=== PATIENT | male | born 1975 | race Caucasian/White ===

== ENCOUNTER 2021-08-05 10:06 | Outpatient (REF) | payer OTHER, SELFPAY ==
[2021-08-05 13:38] LABS: MANUAL DIFF FLAG NO
[2021-08-05 13:41] LABS: Basophils Percent Auto 0.4 % (0-2); Eosinophils Absolute Auto 0.2 X10*3/uL (0.0-0.4); Eosinophils Percent Auto 1.6 % (0-4); Hematocrit 42.7 % (42.0-52.0); Hemoglobin 13.7 g/dl (14.0-18.0); Imm Gran Abs Auto 0.07 X10*3/uL (0.00-0.03); Imm Gran Pct Auto 0.6 % (0.0-0.4); Lymphocytes Absolute Auto 1.9 X10*3/uL (1.2-4.9); Lymphocytes Percent Auto 16.9 % (20-40); Mean Corpuscular HGB Conc 32.1 g/dl (31.0-36.0); Mean Corpuscular Hemoglobin 28.7 pg (27.0-33.0); Mean Corpuscular Volume 89.5 fL (80.0-98.0); Mean Platelet Volume 11.3 fL (9.4-12.4); Monocytes Absolute Auto 0.9 X10*3/uL (0.1-1.2); Monocytes Percent Auto 7.7 % (2-11); Neutrophils Absolute Auto 8.1 x10*3/uL (2.0-8.3); Neutrophils Percent Auto 72.8 % (45-73); Platelet Count 224 X10*3/uL (160-400); Red Blood Count 4.77 X10*6/uL (4.60-5.80); Red Cell Distribution Width 13.5 % (11.0-16.0); White Blood Count 11.1 X10*3/uL (4.8-10.8)
[2021-08-05 13:50] LABS: Estimated Average Glucose 203 mg/dL; Hemoglobin A1c % 8.7 %
[2021-08-05 13:53] LABS: Alanine Aminotransferase 15 U/L (0-40); Albumin Level 3.8 g/dL (3.5-5.0); Alkaline Phosphatase 111 U/L (39-117); Anion Gap 11 (12-20); Aspartate Amino Transferase 15 U/L (5-37); Bilirubin Total 0.4 mg/dL (0.0-1.0); Blood Urea Nitrogen 14 mg/dL (9-16); Calcium 8.8 mg/dL (8.4-10.2); Carbon Dioxide 28 mmol/L (22-29); Chloride 104 mmol/L (96-108); Cholesterol 204 mg/dL; Estimated Glomerular Filt Rate > 60; Glucose Fasting 115 mg/dL (60-99); HDL Cholesterol 40 mg/dL; LDL Cholesterol Calculated 143 mg/dl; Potassium 4.4 mmol/L (3.3-5.1); Sodium 139 mmol/L (135-145); Total Protein 6.6 g/dL (6.5-8.0); Triglycerides 106 mg/dL
[2021-08-05 13:55] LABS: Appearance Urine CLEAR; Color Urine YELLOW; Glucose Urine UA NEG (NEG); Leukocyte Esterase Urine NEG (NEG); Nitrite Urine NEG (NEG); PH 6.5 (5.0-8.0); Urine Blood NEG (NEG); Urine Ketones NEG (NEG); Urine Protein NEG (NEG-TRACE)
[2021-08-05 14:16] LABS: Vitamin D 25-OH Total 7.8 ng/mL (>30)
[2021-08-05 14:26] LABS: Microalbum/Creatinine Ratio Ur 4.7 ug/mg cr
== END 2021-08-05 10:07 | disposition home or self-care (01) ==
LOC: HO.10HDL 10:06
PROVIDERS: Visit Provider Internal Medicine
DX: I10 Essential (primary) hypertension (principal); E11.9 Type 2 diabetes mellitus without complications; E55.9 Vitamin D deficiency, unspecified; E78.00 Pure hypercholesterolemia, unspecified
CPT/HCPCS: 36415; 80053; 80061; 81003; 82043; 82306; 83036; 84443; 85025

== ENCOUNTER → 2021-11-27 14:28 | Outpatient (BNVA) | payer OTHER, SELFPAY | PROVIDERS: PCP Internal Medicine; Visit Provider Internal Medicine Endocrinology, Diabetes & Metabolism | DX: E10.65 Type 1 diabetes mellitus with hyperglycemia (principal) | CPT/HCPCS: 82947 ==

== ENCOUNTER 2021-12-10 12:11 | Outpatient (REF) | payer OTHER, SELFPAY ==
[2021-12-10 13:41] LABS: MANUAL DIFF FLAG NO
[2021-12-10 13:52] LABS: Appearance Urine Clear; Color Urine Yellow; Glucose Urine UA >=1000 mg/dL (Negative); Leukocyte Esterase Urine Negative (Negative); Nitrite Urine Negative (Negative); PH 5.5 (5.0-9.0); Specific Gravity - Urine >= 1.030 (1.005-1.025); UMIC TRIGGER UACC YES; Urine Blood Negative (Negative); Urine Ketones Trace mg/dL (Negative); Urine Protein Negative (Neg-Trace)
[2021-12-10 13:53] LABS: Basophils Absolute Auto 0.1 X10*3/uL (0.0-0.2); Basophils Percent Auto 0.4 % (0-2); Eosinophils Absolute Auto 0.1 X10*3/uL (0.0-0.4); Hematocrit 42.7 % (42.0-52.0); Hemoglobin 13.7 g/dl (14.0-18.0); Imm Gran Abs Auto 0.07 X10*3/uL (0.00-0.03); Imm Gran Pct Auto 0.5 % (0.0-0.4); Lymphocytes Absolute Auto 1.9 X10*3/uL (1.2-4.9); Lymphocytes Percent Auto 13.8 % (20-40); Mean Corpuscular HGB Conc 32.1 g/dl (31.0-36.0); Mean Corpuscular Hemoglobin 28.4 pg (27.0-33.0); Mean Corpuscular Volume 88.4 fL (80.0-98.0); Mean Platelet Volume 11.6 fL (9.4-12.4); Monocytes Absolute Auto 0.8 X10*3/uL (0.1-1.2); Monocytes Percent Auto 6.1 % (2-11); Neutrophils Absolute Auto 10.6 x10*3/uL (2.0-8.3); Neutrophils Percent Auto 78.2 % (45-73); Platelet Count 213 X10*3/uL (160-400); Red Blood Count 4.83 X10*6/uL (4.60-5.80); Red Cell Distribution Width 13.6 % (11.0-16.0); White Blood Count 13.5 X10*3/uL (4.8-10.8)
[2021-12-10 13:54] LABS: Estimated Average Glucose 189 mg/dL; Hemoglobin A1c % 8.2 %
[2021-12-10 14:04] LABS: Alanine Aminotransferase 16 U/L (0-40); Albumin Level 3.9 g/dL (3.5-5.0); Alkaline Phosphatase 126 U/L (39-117); Anion Gap 16 (12-20); Aspartate Amino Transferase 13 U/L (5-37); Bilirubin Total 0.3 mg/dL (0.0-1.0); Blood Urea Nitrogen 18 mg/dL (9-16); Calcium 9.4 mg/dL (8.4-10.2); Carbon Dioxide 23 mmol/L (22-29); Chloride 105 mmol/L (96-108); Cholesterol 193 mg/dL; Estimated Glomerular Filt Rate > 60; Glucose Fasting 160 mg/dL (60-99); HDL Cholesterol 44 mg/dL; LDL Cholesterol Calculated 132 mg/dl; Potassium 4.7 mmol/L (3.3-5.1); Sodium 139 mmol/L (135-145); Total Protein 6.8 g/dL (6.5-8.0); Triglycerides 85 mg/dL
[2021-12-10 14:09] LABS: Creatinine Urine 169.91 mg/dL; Microalbum/Creatinine Ratio Ur 4.7 ug/mg cr
[2021-12-10 14:24] LABS: TSH reflex Free T4 1.95 uIU/mL (0.32-4.0)
[2021-12-10 14:37] LABS: Bacteria Urine None Seen (None Seen); Hyaline Casts Urine 0-2 /LPF (0-2); RBC Urine 0-2 /HPF (0-2); Squamous Epithelial Cell Urine 0-2 /HPF (0-2); WBC Urine 0-5 /HPF (0-5)
[2021-12-16 21:02] LABS: Glutamic acid decarboxylase Ab <5 IU/mL (<5)
== END 2021-12-10 12:12 | disposition home or self-care (01) ==
LOC: HO.10HDL 12:11
PROVIDERS: Absent Provider Internal Medicine Endocrinology, Diabetes & Metabolism; Visit Provider Internal Medicine
DX: E10.65 Type 1 diabetes mellitus with hyperglycemia (principal); I10 Essential (primary) hypertension; E55.9 Vitamin D deficiency, unspecified
CPT/HCPCS: 36415; 80053; 80061; 81001; 82043; 82306; 83036; 84443; 85025; 86341

== ENCOUNTER → 2022-03-03 08:37 | Outpatient (BNVA) | payer OTHER, SELFPAY | PROVIDERS: PCP Internal Medicine; Visit Provider Internal Medicine Endocrinology, Diabetes & Metabolism | DX: E10.65 Type 1 diabetes mellitus with hyperglycemia (principal); E78.00 Pure hypercholesterolemia, unspecified | CPT/HCPCS: 82947 ==

== ENCOUNTER → 2022-03-16 12:35 | Outpatient (BNVA) | payer OTHER, SELFPAY | PROVIDERS: PCP Internal Medicine; Visit Provider Dietitian, Registered | DX: E10.9 Type 1 diabetes mellitus without complications (principal) | CPT/HCPCS: 97802 ==

== ENCOUNTER → 2022-05-05 09:33 | Outpatient (BNVA) | payer OTHER, SELFPAY | PROVIDERS: PCP Internal Medicine; Visit Provider Dietitian, Registered | DX: E11.9 Type 2 diabetes mellitus without complications (principal); Z71.3 Dietary counseling and surveillance | CPT/HCPCS: 97803 ==

== ENCOUNTER 2022-05-25 10:50 | Outpatient (REF) | payer OTHER, SELFPAY ==
[2022-05-25 13:19] LABS: MANUAL DIFF FLAG NO
[2022-05-25 13:23] LABS: Basophils Absolute Auto 0.1 X10*3/uL (0.0-0.2); Basophils Percent Auto 0.5 % (0-2); Eosinophils Absolute Auto 0.2 X10*3/uL (0.0-0.4); Eosinophils Percent Auto 1.6 % (0-4); Hematocrit 44.4 % (42.0-52.0); Hemoglobin 14.3 g/dl (14.0-18.0); Imm Gran Abs Auto 0.05 X10*3/uL (0.00-0.03); Imm Gran Pct Auto 0.5 % (0.0-0.4); Lymphocytes Absolute Auto 1.6 X10*3/uL (1.2-4.9); Lymphocytes Percent Auto 14.3 % (20-40); Mean Corpuscular HGB Conc 32.2 g/dl (31.0-36.0); Mean Corpuscular Hemoglobin 28.1 pg (27.0-33.0); Mean Corpuscular Volume 87.2 fL (80.0-98.0); Mean Platelet Volume 11.1 fL (9.4-12.4); Monocytes Absolute Auto 0.7 X10*3/uL (0.1-1.2); Monocytes Percent Auto 6.5 % (2-11); Neutrophils Absolute Auto 8.4 x10*3/uL (2.0-8.3); Neutrophils Percent Auto 76.6 % (45-73); Platelet Count 251 X10*3/uL (160-400); Red Blood Count 5.09 X10*6/uL (4.60-5.80); Red Cell Distribution Width 13.6 % (11.0-16.0); White Blood Count 10.9 X10*3/uL (4.8-10.8)
[2022-05-25 13:30] LABS: Appearance Urine Clear; Color Urine Yellow; Glucose Urine UA 500 mg/dL (Negative); Leukocyte Esterase Urine Negative (Negative); Nitrite Urine Negative (Negative); PH 5.5 (5.0-9.0); Specific Gravity - Urine >= 1.030 (1.005-1.025); Urine Blood Negative (Negative); Urine Ketones Negative (Negative); Urine Protein Negative (Neg-Trace)
[2022-05-25 13:41] LABS: Alanine Aminotransferase 15 U/L (0-40); Albumin Level 3.8 g/dL (3.5-5.0); Alkaline Phosphatase 123 U/L (39-117); Anion Gap 14 (12-20); Aspartate Amino Transferase 11 U/L (5-37); Bilirubin Total 0.5 mg/dL (0.0-1.0); Blood Urea Nitrogen 18 mg/dL (9-16); Calcium 9.1 mg/dL (8.4-10.2); Carbon Dioxide 23 mmol/L (22-29); Chloride 104 mmol/L (96-108); Cholesterol 168 mg/dL; Estimated Glomerular Filt Rate > 60; Glucose Fasting 285 mg/dL (60-99); HDL Cholesterol 37 mg/dL; LDL Cholesterol Calculated 114 mg/dl; Potassium 4.7 mmol/L (3.3-5.1); Sodium 136 mmol/L (135-145); Total Protein 6.5 g/dL (6.5-8.0); Triglycerides 88 mg/dL
[2022-05-25 13:46] LABS: Estimated Average Glucose 197 mg/dL; Hemoglobin A1c % 8.5 %
[2022-05-25 14:06] LABS: TSH reflex Free T4 1.79 uIU/mL (0.32-4.0); Vitamin D 25-OH Total 13.6 ng/mL (>30)
== END 2022-05-25 10:51 | disposition home or self-care (01) ==
LOC: HO.10HDL 10:50
PROVIDERS: Internal Medicine Endocrinology, Diabetes & Metabolism; Visit Provider Internal Medicine
DX: E78.00 Pure hypercholesterolemia, unspecified (principal); E11.9 Type 2 diabetes mellitus without complications; I10 Essential (primary) hypertension; E55.9 Vitamin D deficiency, unspecified; R30.0 Dysuria
CPT/HCPCS: 36415; 80053; 80061; 81003; 82306; 83036; 84443; 85025

== ENCOUNTER 2022-05-26 14:16 | Outpatient (RCR) | payer OTHER, SELFPAY | END 2022-08-20 09:37 | disposition home or self-care (01) | LOC: HO.WCC 14:16 | PROVIDERS: PCP Internal Medicine; Visit Provider Surgery | DX: E11.621 Type 2 diabetes mellitus with foot ulcer (principal); L97.522 Non-pressure chronic ulcer of other part of left foot with fat layer exposed; E11.69 Type 2 diabetes mellitus with other specified complication; M86.072 Acute hematogenous osteomyelitis, left ankle and foot; Z79.82 Long term (current) use of aspirin; Z79.899 Other long term (current) drug therapy | CPT/HCPCS: 11042; 87070; 87073; 87076; 87077; 87185; 87186; 87205; 97597 ==

== ENCOUNTER → 2022-06-02 08:37 | Outpatient (BNVA) | payer OTHER, SELFPAY | PROVIDERS: PCP Internal Medicine; Visit Provider Internal Medicine Endocrinology, Diabetes & Metabolism | DX: E10.65 Type 1 diabetes mellitus with hyperglycemia (principal); E78.00 Pure hypercholesterolemia, unspecified; Z71.3 Dietary counseling and surveillance | CPT/HCPCS: 82947 ==

== ENCOUNTER 2022-06-02 09:58 | Outpatient (REF) | payer OTHER, SELFPAY ==
[2022-06-02 11:04] LABS: Glucose Random 194 mg/dL (60-115)
[2022-06-04 06:17] LABS: C Peptide 0.13 ng/mL (0.80-3.85)
== END 2022-06-02 09:59 | disposition home or self-care (01) ==
LOC: HO.10HDL 09:58
PROVIDERS: Visit Provider Internal Medicine Endocrinology, Diabetes & Metabolism
DX: E11.628 Type 2 diabetes mellitus with other skin complications (principal); L08.9 Local infection of the skin and subcutaneous tissue, unspecified
CPT/HCPCS: 36415; 82947; 84681

== ENCOUNTER → 2022-06-10 10:58 | Outpatient (BNVA) | payer OTHER, SELFPAY | PROVIDERS: PCP Internal Medicine; Visit Provider Registered Nurse Diabetes Educator ==

== ENCOUNTER → 2022-07-22 09:29 | Outpatient (BNVA) | payer OTHER, SELFPAY | PROVIDERS: PCP Internal Medicine; Visit Provider Registered Nurse Diabetes Educator ==

== ENCOUNTER → 2022-08-05 13:05 | Outpatient (BNVA) | payer OTHER, SELFPAY | PROVIDERS: PCP Internal Medicine; Visit Provider Dietitian, Registered | DX: E10.65 Type 1 diabetes mellitus with hyperglycemia (principal); E66.9 Obesity, unspecified; Z68.43 Body mass index [BMI] 50.0-59.9, adult; Z71.3 Dietary counseling and surveillance | CPT/HCPCS: 97803 ==

== ENCOUNTER → 2022-08-06 08:06 | Outpatient (BNVA) | payer OTHER, SELFPAY | PROVIDERS: PCP Internal Medicine; Visit Provider Internal Medicine Endocrinology, Diabetes & Metabolism | DX: E10.65 Type 1 diabetes mellitus with hyperglycemia (principal); E78.00 Pure hypercholesterolemia, unspecified; Z79.899 Other long term (current) drug therapy | CPT/HCPCS: 82947 ==

== ENCOUNTER → 2022-09-16 10:10 | Outpatient (BNVA) | payer OTHER, SELFPAY | PROVIDERS: PCP Internal Medicine; Visit Provider Registered Nurse Diabetes Educator ==

== ENCOUNTER → 2022-09-23 14:38 | Outpatient (BNVA) | payer OTHER, SELFPAY | PROVIDERS: PCP Internal Medicine; Visit Provider Registered Nurse Diabetes Educator ==

== ENCOUNTER 2022-11-04 13:04 | Outpatient (AMB) | payer OTHER, SELFPAY ==
--- NOTE | 2022-11-04 13:16 | MHC.OFFVIS ---
Intake Vital Signs 11/04/22 13:18 Height 6 ft 3 in Weight 444 lb 3.703 oz BMI 55.5 BP 138/86 Blood Pressure Location Lt brachial Position Sitting Pulse 86 Pulse Source Pulse Oximeter Intake Visit Reasons: f/u Type 2 DM, voicemail Intake Note: Patient present today to follow up on Diabetes Mellitus. Patient receives DME supplies through: Pharmacy Patient receives pump supplies through: [employer] Last Diabetic Eye exam:07/2022 Last Podiatry Visit: 09/2022 Random Glucose: 124 mg/dl HgA1C: 7.2% Behavioral Geneticist Required: No Accompanied by: Self / Same As Patient Allergies No Known Drug Allergies Allergy (Unknown, Verified 11/04/22 13:22) Unknown Medication List - Last Reconciled 11/04/22 by Sander Bojorquez MD aspirin 81 mg PO DAILY atorvastatin 40 mg PO DAILY blood sugar diagnostic (Contour Next Test Strips) As directed 5 times a day blood-glucose meter (Contour Next Meter) As directed blood-glucose meter,continuous (Dexcom G6 Forestry Technical Officer) As directed blood-glucose sensor (Dexcom G6 Sensor device) As directed change every 10 days blood-glucose transmitter (Dexcom G6 Transmitter device) As directed carvedilol 12.5 mg PO DAILY 90 days cholecalciferol (vitamin D3) 50 mcg PO DAILY 90 days escitalopram oxalate 10 mg PO DAILY 90 days insulin lispro (Humalog U-100 Insulin) 170 units (1.7 mL) subcut DAILY 90 days lansoprazole 30 mg PO DAILY lisinopril 20 mg PO DAILY 90 days lorazepam 0.5 mg PO DAILY 30 days tirzepatide (Mounjaro) 5 mg (0.5 mL) subcut QWEEK trazodone 50 mg PO BEDTIME 90 days HPI HPI Comments History of Present Illness Details 47 YO M with is seen in consultation for T2DM at the request of PCP. Initially diagnosed withDM in teenager when presented with hyperglycemia. Anti-GAD65 antibodies were negative possibly suggesting type 2 diabetes. However, C-peptide with glucose in the high 100s was low suggesting insulin deficiency. Currently on Mounjaro 5 mg qwkly Basal rate(s) (units/hour) : ?12 AM to 6:30 AM 4.6 units / hr ?6:30 AM to 3 PM 4.25 units / hr ?3 PM to 12 AM 4.15 units / hr Bolus setting Insulin Carbohydrate Ratio (s) 12 AM to 12 AM 1:5.1 Correction Factor / Sensitivity Factor AM to 12 AM? 1:15 Active Insulin Time:? 5 hours Target(s): Control IQ 12 AM to 12 AM?110? mg/dL Review of Dexcom shows average glucose to be 168 with standard deviation 48.2. 66% range with 33% hyperglycemia and 1% hypoglycemia. Total daily dose is 125.12 with 60% basal, 17% food bolus in 20% correction Reports low sugars occasionally . Treats lows with eats carbohydrates . Checks sugar after to ensure it is rising 30 min . No Family history of autoimmunity Has eyes checked yearly, last eye exam 08/2022 , no retinopathy. Has neuropathy, last foot exam August 2021, sees podiatry. Denies nephropathy, on CHRISTINE/ARB. Has HLD, on statin. Last LDL [] measured on []. Denies history of CAD. Saw podiatry last mo Had diabetes education long time ago . Diet/Carb counting: yes Denies prior episodes of DKA. Denies prior severe episodes of hypoglycemia requiring help or hospitalization. Labs: wound L middle toe infection followed by wound clinic and infectious DX [facility] Medical History Anxiety Benign essential hypertension Diabetes mellitus Diabetic foot infection Diabetic retinopathy GERD without esophagitis Insomnia Morbid obesity with BMI of 50.0-59.9, adult Pure hypercholesterolemia Uncontrolled type 1 diabetes mellitus Surgical History H/O knee surgery Family History Mother High blood pressure Father High blood pressure High cholesterol Social History Housing: Apartment Alcohol intake: current Alcohol intake frequency: holidays/special occasions only Patient Tobacco Use Status: Former Tobacco user e-Cigarette/Vaping Use: Never Used Second Hand Smoke Exposure: Yes service: No Current occupational status: employed 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 [place] Cognitive needs: No Hearing needs: No Vision needs: Yes Physical Exam Vital Signs: Last Vital Signs Pulse 86 11/04/22 13:18 BP 138/86 11/04/22 13:18 BMI result Body Mass Index 55.5 Results AMB Hemoglobin A1c AMB Hemoglobin A1c 7.2 % Last Edit by Lesa Wright on 11/04/22 13:34 Results Reviewed Results Reviewed: 11/04/22 13:24 Glucose, Whole Blood Routine Laboratory Last Values Glucose (Clinic) 124 mg/dL (60-115) H 11/04/22 13:24 Hgb A1c (Clinic) 7.2 % (4.0-6.0) H 11/04/22 13:32 Assessment & Plan Assessment & Plan (1) Uncontrolled type 1 diabetes mellitus: Plan: Is a 47-year-old white male with a history of Type 2 diabetes moist likely Type 2 DM being treated with a tandem T slim pump and Mounjaro with improved good glycemic control and no known microvascular or macrovascular complications. Plan is to increase the Mounjaro to 7.5 mg Qwkly. Patient will continue dietary and exercise modification. . (2) Uncontrolled type 1 diabetes mellitus with hyperglycemia: Code(s): E10.65 - Type 1 diabetes mellitus with hyperglycemia (3) Pure hypercholesterolemia: Code(s): E78.00 - Pure hypercholesterolemia, unspecified Plan: LDL cholesterol not at goal. on atorvastatin 40 mg. Will increase atorvastatin to 80 mg and recheck lipid profile in 2 months (4) Diabetes mellitus: Code(s): E11.9 - Type 2 diabetes mellitus without complications Qualifiers: Diabetes mellitus type: type 1 Diabetes mellitus complication status: with hyperglycemia Qualified Code(s): E10.65 - Type 1 diabetes mellitus with hyperglycemia Orders: Orders AMB Hemoglobin A1c Today E11.9 - Type 2 diabetes mellitus without complications Coding Level of Care Code Est Pt Level 4 (29106) Diagnoses Uncontrolled type 1 diabetes mellitus Uncontrolled type 1 diabetes mellitus with hyperglycemia E10.65 Pure hypercholesterolemia E78.00 Type 1 diabetes mellitus with hyperglycemia E10.65 Diabetes mellitus type: type 1 Diabetes mellitus complication status: with hyperglycemia
[2022-11-04 13:18] VITALS: BP 138/86; PULSE 86; BMI 55.5
[2022-11-04 13:28] LABS: Glucose, Whole Blood 124 mg/dL (60-115)
== END 2022-11-04 14:51 | disposition home or self-care (01) ==
PROVIDERS: PCP Internal Medicine; Visit Provider Internal Medicine Endocrinology, Diabetes & Metabolism
DX: E10.65 Type 1 diabetes mellitus with hyperglycemia (principal); E78.00 Pure hypercholesterolemia, unspecified; E11.9 Type 2 diabetes mellitus without complications
CPT/HCPCS: 99214

== ENCOUNTER → 2022-11-04 13:04 | Outpatient (BNVA) | payer OTHER, SELFPAY | PROVIDERS: PCP Internal Medicine; Visit Provider Internal Medicine Endocrinology, Diabetes & Metabolism | DX: E10.9 Type 1 diabetes mellitus without complications (principal); Z71.3 Dietary counseling and surveillance | CPT/HCPCS: 82947; 83036; 97803 ==

== ENCOUNTER 2022-11-08 15:57 | Outpatient (AMB) | payer OTHER, SELFPAY ==
[2022-11-08 15:58] VITALS: BP 142/88; PULSE 85; O2SAT 96; BMI 55.8
--- NOTE | 2022-11-08 15:58 | A.OFFPC_ITS ---
Vital Signs 11/08/22 15:58 Height 6 ft 3 in Weight 446 lb 6.977 oz BMI 55.8 BP 142/88 H Blood Pressure Location Lt brachial Position Sitting Pulse 85 Pulse Source Pulse Oximeter Pulse Oximetry (%) 96 Oxygen Delivery Method Room Air Intake Visit Reasons: [facility] Tar Worker Required: No Accompanied by: Self / Same As Patient Allergies No Known Drug Allergies Allergy (Unknown, Verified 11/08/22 16:16) Unknown Medication List - Last Reconciled 11/08/22 by Rito Srinivasan MD aspirin 81 mg PO DAILY atorvastatin 40 mg PO DAILY blood sugar diagnostic (Contour Next Test Strips) As directed 5 times a day blood-glucose meter (Contour Next Meter) As directed blood-glucose meter,continuous (Dexcom G6 Escalator Operator) As directed blood-glucose sensor ([email or web address] G6 Sensor device) As directed change every 10 days blood-glucose transmitter (Dexcom G6 Transmitter device) As directed carvedilol 12.5 mg PO DAILY 90 days cholecalciferol (vitamin D3) 50 mcg PO DAILY 90 days escitalopram oxalate 10 mg PO DAILY 90 days insulin lispro (Humalog U-100 Insulin) 170 units (1.7 mL) subcut DAILY 90 days lansoprazole 30 mg PO DAILY lisinopril 20 mg PO DAILY 90 days lorazepam 0.5 mg PO DAILY 30 days tirzepatide (Mounjaro) 5 mg (0.5 mL) subcut QWEEK trazodone 50 mg PO BEDTIME 90 days Tobacco use date assessed: 11/08/22 Dental Screening Dental Screen Date: 11/08/22 Did you have a dental visit in the last 12 months?: No Did you have a dental problem in the last 6 months where you did not have access to dental care?: No Was dental information given to patient?: Patient has dentist HPI 4mt f/u HPI Details Patient comes in today for his follow up visit States that he feels okay He denies any headaches or dizziness Denies any chest pains, no SOB No nausea/vomiting, no abdominal pain No change in bowel habits noted Was not able to get his follow up labs done prior to his appointment today but had his HgbA1c checked at the endocrinology office last week and it came out at 7.2% Needs his Lorazepam Rx refilled today [facility] Medical History Diabetic foot infection Uncontrolled type 1 diabetes mellitus GERD without esophagitis Diabetic retinopathy Morbid obesity with BMI of 50.0-59.9, adult Anxiety Insomnia Benign essential hypertension Pure hypercholesterolemia Diabetes mellitus Surgical History H/O knee surgery Family History Mother High blood pressure Father High blood pressure High cholesterol Social History Housing: Apartment Alcohol intake: current Alcohol intake frequency: holidays/special occasions only Patient Tobacco Use Status: Former Tobacco user e-Cigarette/Vaping Use: Never Used Second Hand Smoke Exposure: Yes service: No Current occupational status: employed 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 1. Little interest or pleasure in doing things: not at all 2. Feeling down, depressed, or hopeless: several days 3. Trouble falling or staying asleep, or sleeping too much: not at all 4. Feeling tired or having little energy: not at all 5. Poor appetite or overeating: not at all 6. Feeling bad about yourself - or that you are a failure or have let yourself or your family down: not at all 7. Trouble concentrating on things, such as reading the newspaper or watching television: not at all 8. Moving or speaking so slowly that other people could have noticed. Or the opposite - being so fidgety or restless that you have been moving around a lot more than usual: not at all 9. Thoughts that you would be better off or of hurting yourself in some way: not at all Total score: 1 Depression Screening Interpretation: Negative 35777 - PHQ-9 Billing: Yes Source: Developed by Drs. Sander Foy, Lyndsey Sears, Ugo Doty and colleagues, with an educational howard from [employer]. Thrive Questionnaire Date Thrive assessed: 11/08/22 I am a: Patient What is your living situation today?: I have a steady place to live Within the past 12 months, did the food you bought not last and you didn't have the money to get more?: Never true Within the past 12 months, did you worry whether your food would run out before you got money to buy more?: Never true Do you have trouble paying for medicines?: No Do you have trouble getting transportation to medical appointments?: No Do you have trouble paying your heating and electricity bill?: No Do you have trouble taking care of your child, family member or friend?: No Do you have trouble with day-to-day activities such as bathing, preparing meals, shopping, managing finances, etc.?: No Are you currently unemployed and looking for a job?: No Are you interested in more education?: No Please select the resources that you would like help with: None Currently or been in a relationship where the following occur: no concerns reported AUDIT C Alcohol Use Questionnaire (AUDIT-C) 1. How often do you have a drink containing alcohol?: Never 3. How often do you have six or more drinks on one occasion?: Never Total Score: 0 Score Reviewed/Action Taken: Yes PAYAL-7 AMB Questionnaire PAYAL-7 Date PAYAL - 7 assessed: 07/02/22 Feeling nervous, anxious, or on edge: 1 = Several days Not being able to stop or control worryin = Several days Worrying too much about different things: 1 = Several days Trouble relaxin = Several days Being so restless that it is hard to sit still: 1 = Several days Becoming easily annoyed or irritable: 1 = Several days Feeling afraid as if something awful might happen: 1 = Several days Total PAYAL-7 score (0-4 normal; 5-9 mild; 10-14 moderate; 15-21 severe): 7 Source: Developed by Drs. Sander Foy, Lyndsey Sears, Ugo Doty and colleagues, with an educational howard from [employer]. Review of Systems Const Denies chills, Denies fatigue, Denies fever(s) and Denies headache(s) ENT Denies dysphagia, Denies dizziness, Denies otalgia, Denies headache(s), Denies odynophagia and Denies sore throat Card Denies chest pain, Denies palpitations and Denies dyspnea Resp Denies cough and Denies dyspnea GI Denies abdominal pain, Denies constipation, Denies dysphagia, Denies heartburn, Denies diarrhea, Denies nausea, Denies odynophagia and Denies vomiting Denies dysuria, Denies nocturia and Denies urinary frequency Neuro Denies dizziness and Denies headache(s) Endo Denies fatigue and Denies palpitations Physical exam (Primary Care) Vital Signs: Last Vital Signs Pulse 85 11/08/22 15:58 BP 142/88 H 11/08/22 15:58 Pulse Ox 96 11/08/22 15:58 Oxygen Delivery Method Room Air 11/08/22 15:58 BMI result Body Mass Index 55.8 Tobacco/Smoking Status: Tobacco use Status Tobacco use date assessed 11/08/22 11/08/22 16:06 Patient Tobacco Use Status Former Tobacco user 11/08/22 16:06 e-Cigarette/Vaping Use Never Used 11/08/22 16:06 PHQ-9: PHQ-9 Score PHQ-9: Total score 1 11/08/22 16:39 Depression Screening Interpretation: Negative Thrive Assessment: Date of Thrive Assessment Date Thrive assessed 11/08/22 11/08/22 16:06 Currently or been in a relationship where the following occur: no concerns reported Const General: no acute distress and alert HENMT Ears: TM's normal bilaterally and EAC's normal Throat: Yes posterior oropharynx normal and Yes tonsils normal (no TP con gestion) Neck Neck: Yes no lymphadenopathy and Yes supple Resp Auscultation: clear to auscultation bilaterally, no rales and no wheezes Cardio Rate: regular rate Rhythm: regular rhythm Heart sounds: no murmurs GI Palpation (GI): Soft to palpation, nontender and No hepatosplenomegaly present Skin General skin exam: no rashes or lesions noted Extrem General: Yes no clubbing, cyanosis or edema Assessment and Plan Assessment & Plan (1) Diabetes mellitus: Code(s): E11.9 - Type 2 diabetes mellitus without complications Qualifiers: Diabetes mellitus complication status: with hyperglycemia Diabetes mellitus type: type 1 Qualified Code(s): E10.65 - Type 1 diabetes mellitus with hyperglycemia Plan: HgbA1c was reportedly at 7.2% last week when it was checked at the endocrinology office (was at 8.5% a few months ago) - goal is at least <7.0% Reinforced diabetic diet Continue Humalog U-100 150 units daily - has an insulin pump and was also started on Mounjaro 5 mg SQ Q week by Dr. Bojorquez a few months ago Follow up with endocrinology as scheduled (2) Diabetic retinopathy: Code(s): E11.319 - Type 2 diabetes mellitus with unspecified diabetic retinopathy without macular edema Qualifiers: Diabetes mellitus macular edema: without macular edema Diabetes mellitus type: type 1 Diabetic retinopathy severity: with mild nonproliferative retinopathy Laterality: bilateral Qualified Code(s): E10.3293 - Type 1 diabetes mellitus with mild nonproliferative diabetic retinopathy without macular edema, bilateral Plan: Last eye exam was done in January 2022 - goes to Dr. Greg Dunn at [facility] in [place] Follow up with shop tailor apprentice as scheduled for his annual diabetic eye exam (3) Pure hypercholesterolemia: Code(s): E78.00 - Pure hypercholesterolemia, unspecified Plan: Was not able to get his follow up labs done yet - states that he will try to get them done WOODY Reinforced low cholesterol diet Continue Atorvastatin 80 mg QD - dose was increased by Dr. Bojorquez a few months ago Will recheck his labs and fasting lipids in 4 months for follow up (4) Benign essential hypertension: Code(s): I10 - Essential (primary) hypertension Plan: Reinforced low sodium diet - goal is systolic BP of 120 mm or less Continue Lisinopril 20 mg QD and Carvedilol 12.5 mg BID (5) GERD without esophagitis: Code(s): K21.9 - Gastro-esophageal reflux disease without esophagitis Plan: Reinforced dietary restrictions in GERD Continue Lansoprazole 30 mg QD (6) Insomnia: Code(s): G47.00 - Insomnia, unspecified Qualifiers: Insomnia type: unspecified Qualified Code(s): G47.00 - Insomnia, unspecified Plan: Sleep hygiene reinforced Continue Trazodone 50 mg Q HS PRN (7) Anxiety: Code(s): F41.9 - Anxiety disorder, unspecified Plan: Continue Escitalopram 10 mg QD and Lorazepam 0.5 mg QD PRN - states that he rarely has to take his Lorazepam (mostly once a month when needed) - Rx refilled (8) Morbid obesity with BMI of 50.0-59.9, adult: Code(s): E66.01 - Morbid (severe) obesity due to excess calories; Z68.43 - Body mass index [BMI] 50.0-59.9, adult Plan: Reinforced diet/exercise as tolerated/lose weight Is still considering seeing weight management but would like to wait and see how much weight he can lose with Mounjaro for now - thinks that he has lost at least 5 pounds since he was started on Mounjaro a few months ago Plan To return in 4 months for his annual physical examination Orders: Orders Complete Blood Count Auto Diff 4 Months I10 - Essential (primary) hypertension TSH reflex Free T4 4 Months E78.00 - Pure hypercholesterolemia, unspecified Microalbumin, Random (w Creat) 4 Months E11.9 - Type 2 diabetes mellitus without complications Prostate Specific Antigen Scr 4 Months Z00.00 - Encounter for general adult medical examination without abnormal findings Comprehensive [place]. Panel Fast 4 Months E78.00 - Pure hypercholesterolemia, unspecified Lipid Panel 4 Months E78.00 - Pure hypercholesterolemia, unspecified UA CC w/rflx Micro + Cult 4 Months R30.0 - Dysuria Hemoglobin A1c 4 Months E11.9 - Type 2 diabetes mellitus without complications Vitamin D 25-OH Total 4 Months E55.9 - Vitamin D deficiency, unspecified Medications: Refilled lorazepam 0.5 mg PO DAILY 30 days 30 tabs 1RF F41.9 - Anxiety disorder, unspecified Coding Level of Care Code Est Pt Level 4 (09416) Diagnoses Type 1 diabetes mellitus with hyperglycemia E10.65 Diabetes mellitus complication status: with hyperglycemia Diabetes mellitus type: type 1 Mild nonproliferative diabetic retinopathy of both 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 macular edema associated with type 1 diabetes mellitus E10.3293 Diabetes mellitus macular edema: without macular edema Diabetes mellitus type: type 1 Diabetic retinopathy severity: with mild nonproliferative retinopathy Laterality: bilateral Pure hypercholesterolemia E78.00 Benign essential hypertension I10 GERD without esophagitis K21.9 Insomnia, unspecified type G47.00 Insomnia type: unspecified Anxiety F41.9 Morbid obesity with BMI of 50.0-59.9, adult E66.01; Z68.43
== END 2022-11-08 16:33 | disposition home or self-care (01) ==
PROVIDERS: Visit Provider Internal Medicine
DX: E10.65 Type 1 diabetes mellitus with hyperglycemia (principal); E10.3293 Type 1 diabetes mellitus with mild nonproliferative diabetic retinopathy without macular edema, bilateral; E66.01 Morbid (severe) obesity due to excess calories; Z68.43 Body mass index [BMI] 50.0-59.9, adult; E78.00 Pure hypercholesterolemia, unspecified; I10 Essential (primary) hypertension; K21.9 Gastro-esophageal reflux disease without esophagitis; G47.00 Insomnia, unspecified; F41.9 Anxiety disorder, unspecified
CPT/HCPCS: 99214

== ENCOUNTER → 2023-01-26 11:08 | Outpatient (BNVA) | payer OTHER, SELFPAY | PROVIDERS: PCP Internal Medicine; Visit Provider Registered Nurse Diabetes Educator | DX: Z46.81 Encounter for fitting and adjustment of insulin pump (principal); E10.9 Type 1 diabetes mellitus without complications | CPT/HCPCS: 99211 ==

== ENCOUNTER 2023-03-14 09:25 | Outpatient (REF) | payer OTHER, SELFPAY ==
[2023-03-14 10:53] LABS: MANUAL DIFF FLAG NO
[2023-03-14 10:56] LABS: Basophils Percent Auto 0.3 % (0-2); Eosinophils Absolute Auto 0.2 X10*3/uL (0.0-0.4); Eosinophils Percent Auto 1.7 % (0-4); Hematocrit 45.6 % (42.0-52.0); Hemoglobin 15.2 g/dl (14.0-18.0); Imm Gran Abs Auto 0.05 X10*3/uL (0.00-0.03); Imm Gran Pct Auto 0.4 % (0.0-0.4); Lymphocytes Absolute Auto 1.6 X10*3/uL (1.2-4.9); Lymphocytes Percent Auto 13.3 % (20-40); Mean Corpuscular HGB Conc 33.3 g/dl (31.0-36.0); Mean Corpuscular Hemoglobin 28.8 pg (27.0-33.0); Mean Corpuscular Volume 86.5 fL (80.0-98.0); Mean Platelet Volume 10.7 fL (9.4-12.4); Monocytes Absolute Auto 0.7 X10*3/uL (0.1-1.2); Monocytes Percent Auto 5.9 % (2-11); Neutrophils Absolute Auto 9.6 x10*3/uL (2.0-8.3); Neutrophils Percent Auto 78.4 % (45-73); Platelet Count 201 X10*3/uL (160-400); Red Blood Count 5.27 X10*6/uL (4.60-5.80); Red Cell Distribution Width 13.5 % (11.0-16.0); White Blood Count 12.2 X10*3/uL (4.8-10.8)
[2023-03-14 11:06] LABS: Appearance Urine Clear; Color Urine Yellow; Glucose Urine UA Negative (Negative); Leukocyte Esterase Urine Negative (Negative); Nitrite Urine Negative (Negative); PH 5.5 (5.0-9.0); Specific Gravity - Urine 1.025 (1.005-1.025); Urine Blood Negative (Negative); Urine Ketones 15 mg/dL (Negative); Urine Protein Negative (Neg-Trace)
[2023-03-14 11:08] LABS: Estimated Average Glucose 154 mg/dL
[2023-03-14 11:18] LABS: Alanine Aminotransferase 14 U/L (0-40); Albumin Level 3.9 g/dL (3.5-5.0); Alkaline Phosphatase 120 U/L (39-117); Anion Gap 13 (12-20); Aspartate Amino Transferase 13 U/L (5-37); Bilirubin Total 0.7 mg/dL (0.0-1.0); Blood Urea Nitrogen 16 mg/dL (9-16); Calcium 9.7 mg/dL (8.4-10.2); Carbon Dioxide 25 mmol/L (22-29); Chloride 105 mmol/L (96-108); Cholesterol 148 mg/dL (<200); Estimated Glomerular Filt Rate > 60; Glucose Fasting 213 mg/dL (60-99); HDL Cholesterol 30 mg/dL (>40); LDL Cholesterol Calculated 93 mg/dL (<100); Potassium 4.1 mmol/L (3.3-5.1); Sodium 139 mmol/L (135-145); Total Protein 7.2 g/dL (6.5-8.0); Triglycerides 126 mg/dL (<150)
[2023-03-14 11:26] LABS: Prostate Specific Antigen Scr 0.18 ng/mL (<0.05-4.0)
[2023-03-14 11:36] LABS: TSH reflex Free T4 1.34 uIU/mL (0.32-4.0); Vitamin D 25-OH Total 11.5 ng/mL (>30)
[2023-03-14 11:37] LABS: Creatinine Urine 186.59 mg/dL; Microalbum/Creatinine Ratio Ur 4.8 ug/mg cr (<30)
[2023-03-14 14:18] LABS: Alanine Aminotransferase 15 U/L (0-40); Albumin Level 3.8 g/dL (3.5-5.0); Alkaline Phosphatase 129 U/L (39-117); Anion Gap 14 (12-20); Aspartate Amino Transferase 13 U/L (5-37); Bilirubin Total 0.7 mg/dL (0.0-1.0); Blood Urea Nitrogen 17 mg/dL (9-16); Calcium 9.5 mg/dL (8.4-10.2); Carbon Dioxide 25 mmol/L (22-29); Chloride 105 mmol/L (96-108); Estimated Glomerular Filt Rate > 60; Glucose Fasting 211 mg/dL (60-99); Potassium 4.2 mmol/L (3.3-5.1); Sodium 140 mmol/L (135-145); Total Protein 7.2 g/dL (6.5-8.0)
[2023-03-14 14:34] LABS: TSH reflex Free T4 1.32 uIU/mL (0.32-4.0); Vitamin D 25-OH Total 13.6 ng/mL (>30)
== END 2023-03-14 09:26 | disposition home or self-care (01) ==
LOC: HO.10HDL 09:25
PROVIDERS: Visit Provider Internal Medicine
DX: Z00.00 Encounter for general adult medical examination without abnormal findings (principal); Z12.5 Encounter for screening for malignant neoplasm of prostate; E78.00 Pure hypercholesterolemia, unspecified; R30.0 Dysuria; E55.9 Vitamin D deficiency, unspecified; E11.9 Type 2 diabetes mellitus without complications; I10 Essential (primary) hypertension
CPT/HCPCS: 36415; 80053; 80061; 81003; 82043; 82306; 82570; 83036; 84153; 84443; 85025

== ENCOUNTER 2023-03-15 09:45 | Outpatient (AMB) | payer OTHER, SELFPAY ==
[2023-03-15 09:48] VITALS: BP 118/74; PULSE 78; BMI 55.1
--- NOTE | 2023-03-15 09:48 | A.OFFVIS_ITS ---
Intake Vital Signs 03/15/23 09:48 Height 6 ft 3 in Weight 441 lb 2.319 oz BMI 55.1 BP 118/74 Blood Pressure Location Lt brachial Position Sitting Pulse 78 Pulse Source Pulse Oximeter Intake Visit Reasons: f/u Type 2 DM-confirmed Intake Note: Patient present today to follow up on T1DM. Last Diabetic Eye exam: 02/2022 Last Podiatry Visit:09/2022 Random Glucose: 274 mg/dl HgA1C: 7.0% 03/14/23 Clockmaker Required: No Accompanied by: Self / Same As Patient Allergies No Known Drug Allergies Allergy (Unknown, Verified 03/15/23 09:55) Unknown HPI HPI Comments History of Present Illness Details 47 YO M with is seen in consultation fo r T2DM at the request of PCP. Initially diagnosed withDM in teenager when presented with hyperglycemia. Anti-GAD65 antibodies were negative possibly suggesting type 2 diabetes. However, C-peptide with glucose in the high 100s was low suggesting insulin deficiency. Currently on Mounjaro 7.5 mg qwkly Basal rate(s) (units/hour) : ?12 AM to 6:30 AM 4.6 units / hr ?6:30 AM to 3 PM 4.25 units / hr ?3 PM to 12 AM 4.15 units / hr Bolus setting Insulin Carbohydrate Ratio (s) New 12 AM to 12 AM 1:4.5 Correction Factor / Sensitivity Factor AM to 12 AM? 1:15 Active Insulin Time:? 5 hours Target(s): Control IQ 12 AM to 12 AM?110? mg/dL Review of Dexcom shows average glucose to be 180 with standard deviation 24.9 . 55% range with 45% hyperglycemia and 0% hypoglycemia. Total daily dose is 130.5 with 62% basal, 38% food bolus in % correction Reports low sugars occasionally . Treats lows with eats carbohydrates . Checks sugar after to ensure it is rising 30 min . No Family history of autoimmunity Has eyes checked yearly, last eye exam 01/2022 - has appt 04/2023 , no retinopathy. Has neuropathy, last foot exam August 2022 , sees podiatry. Denies nephropathy, on CHRISTINE/ARB. Has HLD, on statin. Last LDL [] measured on []. Denies history of CAD. Saw podiatry Had diabetes education long time ago . Diet/Carb counting: yes Denies prior episodes of DKA. Denies prior severe episodes of hypoglycemia requiring help or hospitalization. Labs: wound L middle toe infection followed by wound clinic and infectious DX [facility] Medical History Diabetic foot infection Uncontrolled type 1 diabetes mellitus GERD without esophagitis Diabetic retinopathy Morbid obesity with BMI of 50.0-59.9, adult Anxiety Insomnia Benign essential hypertension Pure hypercholesterolemia Diabetes mellitus Surgical History H/O knee surgery Family History Mother High blood pressure Father High blood pressure High cholesterol Social History Housing: Apartment Alcohol intake: current Alcohol intake frequency: holidays/special occasions only Patient Tobacco Use Status: Former Tobacco user e-Cigarette/Vaping Use: Never Used Second Hand Smoke Exposure: Yes service: No Current occupational status: employed 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 Absence of acromegalic features. Neck exam reveals nl size thyroid about 15 gms. No thyroid nodules palpable. No carotid bruits present. Lungs CTA. Heart S1 S2, Reg R/R. No M/R/ G. Skin exam reveals absence of vitiligo or acanthosis nigricans. Abdominal exam reveals Soft NT/ND with NA BS. No organomegaly present. Neck Other: . Extrem Other: Visual exam of foot performed. No ulcerations or open lesions. No onchomycosis, no callouses.Pulses 2 + distally Sensation intact to monofilament exam. Vibratory sensation sensed is decreased t with 128 Hz tuning fork. There is 2+ edema present lower extremity Assessment & Plan Assessment & Plan (1) Uncontrolled type 1 diabetes mellitus: Comment: BMI as per Ht of 6'2 on 03/2022 at 60 (469 lbs), on 10/2022 at 57 (444 lbs) Plan: Is a 48-year-old white male with a history of Type 2 diabetes moist likely Type 2 DM being treated with a tandem T slim pump and Mounjaro with improved good glycemic control and no known microvascular or macrovascular complications. Plan is to increase the Mounjaro to 10 mg qwkly. Patient was instructed to report any hypoglycemia.. Patient will continue dietary and exercise modification. Will follow up with the staff development educator . (2) Uncontrolled type 1 diabetes mellitus with hyperglycemia: Code(s): E10.65 - Type 1 diabetes mellitus with hyperglycemia Plan: See above for plan (3) Pure hypercholesterolemia: Code(s): E78.00 - Pure hypercholesterolemia, unspecified Plan: LDL cholesterol at goal. on atorvastatin 40 mg. (4) Diabetes mellitus: Code(s): E11.9 - Type 2 diabetes mellitus without complications Qualifiers: Diabetes mellitus type: type 1 Diabetes mellitus complication status: with hyperglycemia Qualified Code(s): E10.65 - Type 1 diabetes mellitus with hyperglycemia Plan: See above plan Coding Level of Care Code Est Pt Level 4 (59839) Diagnoses Uncontrolled type 1 diabetes mellitus Uncontrolled type 1 diabetes mellitus with hyperglycemia E10.65 Pure hypercholesterolemia E78.00 Type 1 diabetes mellitus with hyperglycemia E10.65 Diabetes mellitus type: type 1 Diabetes mellitus complication status: with hyperglycemia
[2023-03-15 09:58] LABS: Glucose, Whole Blood 274 mg/dL (60-115)
== END 2023-03-15 10:35 | disposition home or self-care (01) ==
PROVIDERS: PCP Internal Medicine; Visit Provider Internal Medicine Endocrinology, Diabetes & Metabolism
DX: E10.65 Type 1 diabetes mellitus with hyperglycemia (principal); E78.00 Pure hypercholesterolemia, unspecified
CPT/HCPCS: 99214

== ENCOUNTER → 2023-03-15 09:45 | Outpatient (BNVA) | payer OTHER, SELFPAY | PROVIDERS: PCP Internal Medicine; Visit Provider Internal Medicine Endocrinology, Diabetes & Metabolism | DX: E10.65 Type 1 diabetes mellitus with hyperglycemia (principal); E78.00 Pure hypercholesterolemia, unspecified | CPT/HCPCS: 82947 ==

== ENCOUNTER → 2023-04-04 08:34 | Outpatient (BNVA) | payer OTHER, SELFPAY | PROVIDERS: PCP Internal Medicine; Visit Provider Dietitian, Registered | DX: E10.9 Type 1 diabetes mellitus without complications (principal); E66.01 Morbid (severe) obesity due to excess calories; Z68.43 Body mass index [BMI] 50.0-59.9, adult; Z71.3 Dietary counseling and surveillance | CPT/HCPCS: 97803 ==

== ENCOUNTER 2023-05-18 08:36 | Outpatient (AMB) | payer OTHER, SELFPAY ==
--- NOTE | 2023-05-18 08:38 | MHC.OFFVIS ---
Intake Vital Signs 05/18/23 08:40 Height 6 ft 3 in Weight 440 lb 4.21 oz BMI 55.0 BP 130/86 Blood Pressure Location Lt brachial Position Sitting Pulse 79 Pulse Source Pulse Oximeter Intake Visit Reasons: f/u Type 2 DM-lvm Intake Note: Patient presents today to follow up on D1MT. Last Diabetic Eye exam:05/2022 Last Podiatry Visit:2022 Random Glucose: 140 mg/dl HgA1c: 7.0% 03/14/23 Therapeutic Program Worker Required: No Accompanied by: Self / Same As Patient Allergies No Known Drug Allergies Allergy (Unknown, Verified 05/18/23 08:48) Unknown Medication List - Last Reconciled 05/18/23 by Sander Bojorquez MD atorvastatin 40 mg PO DAILY blood sugar diagnostic ([employer] Next Test Strips) As directed 5 times a day blood-glucose meter ([employer] Next Meter) As directed blood-glucose meter,continuous (Dexcom G6 [place]) As directed blood-glucose sensor (Dexcom G6 Sensor device) As directed change every 10 days blood-glucose transmitter (Dexcom G6 Transmitter device) USE DIRECTED carvedilol 12.5 mg PO DAILY 90 days cholecalciferol (vitamin D3) 50 mcg PO DAILY 90 days escitalopram oxalate 10 mg PO DAILY 90 days insulin lispro infuse up to 170 units daily via insulin pump subcutaneously use as directed; lansoprazole 30 mg PO DAILY lisinopril 20 mg PO DAILY 90 days lorazepam 0.5 mg PO DAILY 30 days tirzepatide (Mounjaro) 10 mg (0.5 mL) subcut QWEEK trazodone 50 mg PO BEDTIME 90 days HPI HPI Comments History of Present Illness Details 47 YO M with is seen in consultation for T2DM at the request of PCP. Initially diagnosed withDM in teenager when presented with hyperglycemia. Anti-GAD65 antibodies were negative possibly suggesting type 2 diabetes. However, C-peptide with glucose in the high 100s was low suggesting insulin deficiency. Currently on Mounjaro 10 mg qwkly Basal rate(s) (units/hour) : ?12 AM to 6:30 AM 4.6 units / hr ?6:30 AM to 3 PM 4.25 units / hr ?3 PM to 12 AM 4.3 units / hr Bolus setting Insulin Carbohydrate Ratio (s) New 12 AM to 3 PM 1:4.5 3PM to [place] 1:5 Correction Factor / Sensitivity Factor AM to 12 AM? 1:15 Active Insulin Time:? 5 hours Target(s): Control IQ 12 AM to 12 AM?110? mg/dL Review of Dexcom shows average glucose to be 171 with standard deviation 33.8. 65 % range with 35% hyperglycemia and 0% hypoglycemia. Pen shows post-prandial dinner elevation Total daily dose is 131.7with 61% basal, 20% food bolus in 19% correction Reports low sugars occasionally . Treats lows with eats carbohydrates . Checks sugar after to ensure it is rising 30 min . No Family history of autoimmunity Has eyes checked yearly, - has appt 06/05/2023 , no retinopathy. Has neuropathy, last foot exam August 2022 , sees podiatry. Denies nephropathy, on CHRISTINE/ARB. Has HLD, on statin. Last LDL [] measured on []. Denies history of CAD. Saw podiatry Had diabetes education long time ago . Diet/Carb counting: yes Denies prior episodes of DKA. Denies prior severe episodes of hypoglycemia requiring help or hospitalization. Labs: wound L middle toe infection followed by wound clinic and infectious DX [facility] Medical History Diabetic foot infection Uncontrolled type 1 diabetes mellitus GERD without esophagitis Diabetic retinopathy Morbid obesity with BMI of 50.0-59.9, adult Anxiety Insomnia Benign essential hypertension Pure hypercholesterolemia Diabetes mellitus Surgical History H/O knee surgery Family History Mother High blood pressure Father High blood pressure High cholesterol Social History (Reviewed 03/15/23 @ 09:55 by Lesa Wright, [facility]) Housing: Apartment Alcohol intake: current Alcohol intake frequency: holidays/special occasions only Patient Tobacco Use Status: Former Tobacco user e-Cigarette/Vaping Use: Never Used Second Hand Smoke Exposure: Yes service: No Current occupational status: employed 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 Plan is to continue current current management Will follow up with the family life educator. May need tightening of dinner bolus but will wait to see the results of the increased Mounjaro dose first . (2) Uncontrolled type 1 diabetes mellitus with hyperglycemia: Code(s): E10.65 - Type 1 diabetes mellitus with hyperglycemia Plan: See above for plan (3) Pure hypercholesterolemia: Code(s): E78.00 - Pure hypercholesterolemia, unspecified Plan: LDL cholesterol at goal. on atorvastatin 40 mg. (4) Diabetes mellitus: Code(s): E11.9 - Type 2 diabetes mellitus without complications Qualifiers: Diabetes mellitus type: type 1 Diabetes mellitus complication status: with hyperglycemia Qualified Code(s): E10.65 - Type 1 diabetes mellitus with hyperglycemia Plan: See above plan Coding Level of Care Code Est Pt Level 4 (18504) Diagnoses Uncontrolled type 1 diabetes mellitus Uncontrolled type 1 diabetes mellitus with hyperglycemia E10.65 Pure hypercholesterolemia E78.00 Type 1 diabetes mellitus with hyperglycemia E10.65 Diabetes mellitus type: type 1 Diabetes mellitus complication status: with hyperglycemia
[2023-05-18 08:40] VITALS: BP 130/86; PULSE 79; BMI 55.0
[2023-05-18 08:54] LABS: Glucose, Whole Blood 140 mg/dL (60-115)
== END 2023-05-18 09:02 | disposition home or self-care (01) ==
PROVIDERS: PCP Internal Medicine; Visit Provider Internal Medicine Endocrinology, Diabetes & Metabolism
DX: E10.65 Type 1 diabetes mellitus with hyperglycemia (principal); E78.00 Pure hypercholesterolemia, unspecified
CPT/HCPCS: 99214

== ENCOUNTER → 2023-05-18 08:36 | Outpatient (BNVA) | payer OTHER, SELFPAY | PROVIDERS: PCP Internal Medicine; Visit Provider Internal Medicine Endocrinology, Diabetes & Metabolism | DX: E10.65 Type 1 diabetes mellitus with hyperglycemia (principal); E78.00 Pure hypercholesterolemia, unspecified; Z96.41 Presence of insulin pump (external) (internal) | CPT/HCPCS: 82947 ==

== ENCOUNTER 2023-05-18 09:18 | Outpatient (REF) | payer OTHER, SELFPAY ==
[2023-05-18 11:03] LABS: MANUAL DIFF FLAG NO
[2023-05-18 11:28] LABS: Basophils Absolute Auto 0.1 X10*3/uL (0.0-0.2); Basophils Percent Auto 0.4 % (0-2); Eosinophils Absolute Auto 0.3 X10*3/uL (0.0-0.4); Eosinophils Percent Auto 2.7 % (0-4); Hematocrit 46.4 % (42.0-52.0); Hemoglobin 15.5 g/dl (14.0-18.0); Imm Gran Abs Auto 0.06 X10*3/uL (0.00-0.03); Imm Gran Pct Auto 0.5 % (0.0-0.4); Lymphocytes Absolute Auto 1.8 X10*3/uL (1.2-4.9); Lymphocytes Percent Auto 15.5 % (20-40); Mean Corpuscular HGB Conc 33.4 g/dl (31.0-36.0); Mean Corpuscular Hemoglobin 29.2 pg (27.0-33.0); Mean Corpuscular Volume 87.4 fL (80.0-98.0); Mean Platelet Volume 11.2 fL (9.4-12.4); Monocytes Absolute Auto 0.8 X10*3/uL (0.1-1.2); Monocytes Percent Auto 6.8 % (2-11); Neutrophils Absolute Auto 8.6 x10*3/uL (2.0-8.3); Neutrophils Percent Auto 74.1 % (45-73); Platelet Count 182 X10*3/uL (160-400); Red Blood Count 5.31 X10*6/uL (4.60-5.80); Red Cell Distribution Width 13.9 % (11.0-16.0); White Blood Count 11.6 X10*3/uL (4.8-10.8)
[2023-05-18 11:33] LABS: Estimated Average Glucose 151 mg/dL; Hemoglobin A1c % 6.9 % (<6.0)
[2023-05-18 12:02] LABS: Cholesterol 112 mg/dL (<200); HDL Cholesterol 32 mg/dL (>40); LDL Cholesterol Calculated 66 mg/dL (<100); Triglycerides 74 mg/dL (<150)
[2023-05-18 13:21] LABS: Appearance Urine Turbid; Color Urine Dark Yellow; Glucose Urine UA Negative (Negative); Leukocyte Esterase Urine Negative (Negative); Nitrite Urine Negative (Negative); Specific Gravity - Urine >= 1.030 (1.005-1.025); Urine Blood Negative (Negative); Urine Ketones Trace mg/dL (Negative); Urine Protein Trace mg/dL (Neg-Trace)
[2023-05-18 14:58] LABS: Creatinine Urine 298.78 mg/dL; Microalbum/Creatinine Ratio Ur 10.3 ug/mg cr (<30)
== END 2023-05-18 09:19 | disposition home or self-care (01) ==
LOC: HO.10HDL 09:18
PROVIDERS: Internal Medicine Endocrinology, Diabetes & Metabolism; Visit Provider Internal Medicine
DX: I10 Essential (primary) hypertension (principal); R30.0 Dysuria; E11.9 Type 2 diabetes mellitus without complications; E78.00 Pure hypercholesterolemia, unspecified
CPT/HCPCS: 36415; 80061; 81003; 82043; 82570; 83036; 85025

== ENCOUNTER 2023-05-30 15:36 | Outpatient (AMB) | payer OTHER, SELFPAY ==
--- NOTE | 2023-05-30 16:00 | A.OFFVIS_ITS ---
Intake Intake Visit Reasons: DM Pump-lvm Lead Setter Required: No Accompanied by: Self / Same As Patient Allergies No Known Drug Allergies Allergy (Unknown, Verified 05/18/23 08:48) Unknown HPI Comprehensive Diabetes Asmnt Most Recent Diabetes Results: Microalb/Creat Ratio 10.3 ug/mg cr (<30) 05/18/23 Cholesterol 112 mg/dL (<200) 05/18/23 HDL Cholesterol 32 mg/dL (>40) L 05/18/23 Triglycerides 74 mg/dL (<150) 05/18/23 Creatinine 0.92 mg/dL (0.5-1.4) 03/14/23 Blood Urea Nitrogen 17 mg/dL (9-16) H 03/14/23 Sodium 140 mmol/L (135-145) 03/14/23 Potassium 4.2 mmol/L (3.3-5.1) 03/14/23 Chloride 105 mmol/L (96-108) 03/14/23 Carbon Dioxide 25 mmol/L (22-29) 03/14/23 Calcium 9.5 mg/dL (8.4-10.2) 03/14/23 AST 13 U/L (5-37) 03/14/23 ALT 15 U/L (0-40) 03/14/23 Total Protein 7.2 g/dL (6.5-8.0) 03/14/23 Albumin 3.8 g/dL (3.5-5.0) 03/14/23 [facility] Medical History Diabetic foot infection Uncontrolled type 1 diabetes mellitus GERD without esophagitis Diabetic retinopathy Morbid obesity with BMI of 50.0-59.9, adult Anxiety Insomnia Benign essential hypertension Pure hypercholesterolemia Diabetes mellitus Surgical History H/O knee surgery Family History Mother High blood pressure Father High blood pressure High cholesterol Social History Housing: Apartment Alcohol intake: current Alcohol intake frequency: holidays/special occasions only Patient Tobacco Use Status: Former Tobacco user e-Cigarette/Vaping Use: Never Used Second Hand Smoke Exposure: Yes service: No Current occupational status: employed 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 High Alert: 260 mg/dl ??? Low Alert: 80 mg/dl Above target 48% At target 62% Below target 0% Average glucose for the last week 174 mg/dL Patient has still not been able to get Mounjaro 10 mg, but continues to have evening postprandial hyperglycemia see change to insulin pump below Discussed with patient upgrade to Dexcom G7 sensors, if he needs assistance in upgrade contact Diabetes Education nurse Troubleshooting after starting new pod or inserting new insulin set: Occlusion, adhesive tape sensitivity, redness Check BG 2 hours after site change Patient understands the basic concepts of pump therapy, how to give insulin for meals and snacks, how to troubleshoot for hyper and hypoglycemia. Setting verified by [facility], see changes to insulin to carb ratio Basal rate(s) (units/hour) : ?12 AM to 6:30 AM 4.6 units / hr ?6:30 AM to 3 PM 4.25 units / hr ?3 PM to 12 AM 4.15 units / hr Bolus setting Insulin Carbohydrate Ratio (s) 12 AM to3 PM 1:4.5 New 12 AM to 12 AM? 1:4.5 3 PM to 12 AM 1:5 Correction Factor / Sensitivity Factor 12 AM to 12 AM? 1:15 Active Insulin Time:? 5 hours Target(s): Control IQ 12 AM to 12 AM?110? mg/dL Coding Level of Care Code Est Pt Level 1 (73076) Diagnoses Type 1 diabetes mellitus with hyperglycemia E10.65 Diabetes mellitus type: type 1 Diabetes mellitus complication status: with hyperglycemia
== END 2023-05-30 16:07 | disposition home or self-care (01) ==
LOC: HO.ENCR 15:39
PROVIDERS: PCP Internal Medicine; Visit Provider Registered Nurse Diabetes Educator
DX: E10.65 Type 1 diabetes mellitus with hyperglycemia (principal)

== ENCOUNTER → 2023-05-30 15:39 | Outpatient (BNVA) | payer OTHER, SELFPAY | PROVIDERS: PCP Internal Medicine; Visit Provider Registered Nurse Diabetes Educator | DX: Z46.81 Encounter for fitting and adjustment of insulin pump (principal); E10.65 Type 1 diabetes mellitus with hyperglycemia | CPT/HCPCS: 99211 ==

== ENCOUNTER 2023-06-08 09:18 | Outpatient (AMB) | payer OTHER, SELFPAY ==
[2023-06-08 09:19] VITALS: BP 148/80; PULSE 85; O2SAT 97; BMI 55.8
--- NOTE | 2023-06-08 09:19 | A.OFFPC_ITS ---
Vital Signs 06/08/23 09:19 06/08/23 09:50 Height 6 ft 3 in Weight 446 lb 10.504 oz BMI 55.8 BP 148/80 H 140/84 H Blood Pressure Location Lt radial Lt brachial Position Sitting Sitting Pulse 85 Pulse Source Pulse Oximeter Pulse Oximetry (%) 97 Oxygen Delivery Method Room Air Intake Visit Reasons: Annual PE Intake Note: Patient is here today for a physical. Export Manager Required: No Allergies No Known Drug Allergies Allergy (Unknown, Verified 06/08/23 09:19) Unknown Tobacco use date assessed: 06/08/23 Dental Screening Dental Screen Date: 06/08/23 Did you have a dental visit in the last 12 months?: No Did you have a dental problem in the last 6 months where you did not have access to dental care?: No Was dental information given to patient?: Patient has dentist HPI Annual PE HPI Details Patient comes in today for his annual physical examination States that he feels okay States that Dr. Bojorquez recently raised the dose of his Mounjaro to 5 mg weekly a few weeks ago but he has not been able to get his Mounjaro Rx refilled for about a month now - has been advised that his Rx is currently NOT available at pharmacies nationwide He denies any headaches or dizziness Denies any chest pains, no SOB No nausea/vomiting, no abdominal pain No change in bowel habits noted - still has on and off loose stools at times, which he states has been going on for years now He denies any acute urinary symptoms He had some follow up labs done a few weeks ago He just had his diabetic eye exam done earlier last month (May 2023) States that he has never had a screening colonoscopy done in the past [facility] Medical History Diabetic foot infection Uncontrolled type 1 diabetes mellitus GERD without esophagitis Diabetic retinopathy Morbid obesity with BMI of 50.0-59.9, adult Anxiety Insomnia Benign essential hypertension Pure hypercholesterolemia Diabetes mellitus Surgical History H/O knee surgery Family History Mother High blood pressure Father High blood pressure High cholesterol Social History Housing: Apartment Alcohol intake: current Alcohol intake frequency: holidays/special occasions only Patient Tobacco Use Status: Former Tobacco user e-Cigarette/Vaping Use: Never Used Second Hand Smoke Exposure: Yes service: No Current occupational status: employed 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 1. Little interest or pleasure in doing things: not at all 2. Feeling down, depressed, or hopeless: not at all 3. Trouble falling or staying asleep, or sleeping too much: not at all 4. Feeling tired or having little energy: not at all 5. Poor appetite or overeating: not at all 6. Feeling bad about yourself - or that you are a failure or have let yourself or your family down: not at all 7. Trouble concentrating on things, such as reading the newspaper or watching television: not at all 8. Moving or speaking so slowly that other people could have noticed. Or the opposite - being so fidgety or restless that you have been moving around a lot more than usual: not at all 9. Thoughts that you would be better off or of hurting yourself in some way: not at all Total score: 0 Depression Screening Interpretation: Negative Depression Screening Done: Yes 61186 - PHQ-9 Billing: Yes Source: Developed by Drs. Sander Foy, Lyndsey Sears, Ugo Doty and colleagues, with an educational howard from [email or web address]. Thrive Questionnaire Date Thrive assessed: 06/08/23 I am a: Patient What is your living situation today?: I have a steady place to live Within the past 12 months, did the food you bought not last and you didn't have the money to get more?: Never true Within the past 12 months, did you worry whether your food would run out before you got money to buy more?: Never true Do you have trouble paying for medicines?: No Do you have trouble getting transportation to medical appointments?: No Do you have trouble paying your heating and electricity bill?: No Do you have trouble taking care of your child, family member or friend?: No Do you have trouble with day-to-day activities such as bathing, preparing meals, shopping, managing finances, etc.?: No Are you currently unemployed and looking for a job?: No Are you interested in more education?: No Please select the resources that you would like help with: None Currently or been in a relationship where the following occur: no concerns reported THRIVE Score: 0 AUDIT C Alcohol Use Questionnaire (AUDIT-C) 1. How often do you have a drink containing alcohol?: Never 3. How often do you have six or more drinks on one occasion?: Never Total Score: 0 Score Reviewed/Action Taken: Yes PAYAL-7 AMB Questionnaire PAYAL-7 Date PAYAL - 7 assessed: 06/08/23 Feeling nervous, anxious, or on edge: 0 = Not at all Not being able to stop or control worryin = Not at all Worrying too much about different things: 0 = Not at all Trouble relaxin = Not at all Being so restless that it is hard to sit still: 0 = Not at all Becoming easily annoyed or irritable: 0 = Not at all Feeling afraid as if something awful might happen: 0 = Not at all Total PAYAL-7 score (0-4 normal; 5-9 mild; 10-14 moderate; 15-21 severe): 0 Source: Developed by Drs. Sander Foy, Lyndsey Sears, Ugo Doty and colleagues, with an educational howard from [email or web address]. PAYAL-7 Assessment Billing PAYAL-7 Assessment Tool: PAYAL-7 Assessment [id number] Review of Systems Const Denies chills, Denies fatigue, Denies fever(s), Denies headache(s), Denies malaise and Denies weakness Eyes Denies blurry vision, Denies change in vision, Denies irritation and Denies itchy eyes ENT Denies dysphagia, Denies dizziness, Denies otalgia, Denies headache(s), Denies nasal congestion, Denies neck pain, Denies odynophagia and Denies sore throat Card Denies chest pain, Denies rapid heart rate, Denies irregular heart rhythm, Denies palpitations and Denies dyspnea Resp Denies chest congestion, Denies cough, Denies dyspnea and Denies wheezing GI Denies abdominal pain, Denies bloating, Denies constipation, Denies dysphagia, Denies heartburn, Reports loose stools (on and off), Denies nausea, Denies odynophagia and Denies vomiting Denies hematuria, Denies difficulty urinating, Denies dysuria, Denies urinary frequency and Denies urinary urgency Musc Denies back pain, Denies arthralgias, Denies joint swelling, Denies muscle weakness and Denies neck pain Skin/Breast Denies change in pigmentation, Denies lesions, Denies rash and Denies unusual bruising Neuro Denies dizziness, Denies headache(s), Denies paresthesias and Denies weakness Endo Denies fatigue and Denies palpitations Aller/Immun Denies itchy eyes and Denies wheezing Physical exam (Primary Care) Vital Signs: Last Vital Signs Pulse 85 06/08/23 09:19 BP 140/84 H 06/08/23 09:50 Pulse Ox 97 06/08/23 09:19 Oxygen Delivery Method Room Air 06/08/23 09:19 BMI result Body Mass Index 55.8 Tobacco/Smoking Status: Tobacco use Status Tobacco use date assessed 06/08/23 06/08/23 09:26 Patient Tobacco Use Status Former Tobacco user 06/08/23 09:26 e-Cigarette/Vaping Use Never Used 06/08/23 09:26 PHQ-9: PHQ-9 Score PHQ-9: Total score 0 06/08/23 10:08 Depression Screening Interpretation: Negative Thrive Assessment: Date of Thrive Assessment Date Thrive assessed 06/08/23 06/08/23 09:26 Currently or been in a relationship where the following occur: no concerns reported Const General: no acute distress, alert and awake Orientation/consciousness: patient oriented x3 HENMT Head: Yes normocephalic and Yes atraumatic Ears: external ears normal, TM's normal bilaterally and EAC's normal General nose exam: No nasal discharge present Face and sinus: Yes normal facial exam and Yes sinuses nontender Teeth and gingiva: dentition normal Throat: Yes posterior oropharynx normal and Yes tonsils normal (no TP congestion) Eyes Eyelids: Yes eyelids normal Conjunctivae: conjunctivae normal Pupils: Equal, round and reactive pupils present EOM: EOMs intact bilaterally Neck Neck: Yes no lymphadenopathy and Yes supple Thyroid: Thyroid normal Resp Auscultation: clear to auscultation bilaterally, no rales and no wheezes Cardio Rate: regular rate Rhythm: regular rhythm Heart sounds: no murmurs GI Palpation (GI): Soft to palpation, nontender and No hepatosplenomegaly present Auscultation: normal bowel sounds General: Yes no CVA tenderness Back/Spine/Pelvis Back: no CVA tenderness Thoracic/Lumbar Spine: thoracic and lumbar spine normal to inspection Skin Lesions: no lesions Rashes: no rashes Neuro General: patient oriented x3, moves all extremities, no focal motor deficits and CN's II-XI intact bilaterally Cranial nerves: Yes Equal, round and reactive pupils present Cognition (Neuro): normal cognition Gait exam (Neuro): Normal gait present Extrem General: Yes no clubbing, cyanosis or edema Results Reviewed Results Reviewed: Laboratory Tests 05/18/23 05/18/23 08:50 09:22 WBC 11.6 H Hgb 15.5 Hct 46.4 Plt Count 182 Abs Immat Gran (auto) 0.06 H Absolute Neuts (auto) 8.6 H Glucose (Clinic) 140 H Hemoglobin A1c % 6.9 H Triglycerides 74 Cholesterol 112 LDL Cholesterol, Calc 66 HDL Cholesterol 32 L Ur Specific [place] >= 1.030 H Urine Protein Trace Urine Glucose (UA) Negative Urine Blood Negative Urine Nitrite Negative Ur Leukocyte Esterase Negative Microalb/Creat Ratio 10.3 Assessment and Plan Assessment & Plan (1) Annual physical exam: Code(s): Z00.00 - Encounter for general adult medical examination without abnormal findings Plan: Results of his labs done a few weeks ago reviewed and discussed with patient He has never had a screening colonoscopy done in the past and will be referred for this (2) Diabetes mellitus: Code(s): E11.9 - Type 2 diabetes mellitus without complications Qualifiers: Diabetes mellitus complication status: with hyperglycemia Diabetes mellitus type: type 1 Qualified Code(s): E10.65 - Type 1 diabetes mellitus with hyperglycemia Plan: HgbA1c was at 6.9% on his labs done a few weeks ago; was reportedly at 7.2% previously when checked at the endocrinology office a few months ago - goal is at least <7.0% Reinforced diabetic diet Continue Humalog U-100 150 units daily (he has an insulin pump) and was also started on Mounjaro 5 mg SQ Q week by Dr. Bojorquez a few months ago but he has not been able to get his Mounjaro Rx filled for about a month now due to unavailability at the pharmacies nationwide Advised that we can at least switch him to Ozempic for now UNTIL he is able to get back on Mounjaro - Rx for Ozempic 2 mg SQ once a week sent to his local pharmacy Follow up with endocrinology as scheduled He had his diabetic eye exam done earlier last month (May 2023) (3) Diabetic retinopathy: Code(s): E11.319 - Type 2 diabetes mellitus with unspecified diabetic retinopathy without macular edema Qualifiers: Diabetes mellitus macular edema: without macular edema Diabetes mellitus type: type 1 Diabetic retinopathy severity: with mild nonproliferative retinopathy Laterality: bilateral Qualified Code(s): E10.3293 - Type 1 diabetes mellitus with mild nonproliferative diabetic retinopathy without macular edema, bilateral Plan: Last eye exam was done in May 2023 - goes to Dr. Greg Dunn at [facility] in [place] Follow up with personalized living manager nurse as scheduled for his annual diabetic eye exam (4) Pure hypercholesterolemia: Code(s): E78.00 - Pure hypercholesterolemia, unspecified Plan: He was advised that his cholesterol numbers on his recent labs were at goal, with his LDL cholesterol at 66 mg/dl Reinforced low cholesterol diet Continue Atorvastatin 80 mg QD Will recheck his labs and fasting lipids in 4 months for follow up (5) Benign essential hypertension: Code(s): I10 - Essential (primary) hypertension Plan: Reinforced low sodium diet - goal is systolic BP of 120 mm or less Continue Lisinopril 20 mg QD and Carvedilol 12.5 mg BID (6) Leukocytosis (leucocytosis): Code(s): D72.829 - Elevated white blood cell count, unspecified Qualifiers: Leukocytosis type: bandemia Qualified Code(s): D72.825 - Bandemia Plan: Patient is advised that his CBC over the years have always shown the presence of a mild/low level leucocytosis (absolute neutrophilia) since 2021 and this is still present on his recent labs Will refer him to hematology for further evaluation and management (7) GERD without esophagitis: Code(s): K21.9 - Gastro-esophageal reflux disease without esophagitis Plan: Reinforced dietary restrictions Continue Lansoprazole 30 mg QD (8) Insomnia: Code(s): G47.00 - Insomnia, unspecified Qualifiers: Insomnia type: unspecified Qualified Code(s): G47.00 - Insomnia, unspecified Plan: Sleep hygiene reinforced Continue Trazodone 50 mg Q HS PRN (9) Anxiety: Code(s): F41.9 - Anxiety disorder, unspecified Plan: Continue Escitalopram 10 mg QD and Lorazepam 0.5 mg QD PRN - states that he rarely has to take his Lorazepam (mostly once a month when needed) (10) Morbid obesity with BMI of 50.0-59.9, adult: Code(s): E66.01 - Morbid (severe) obesity due to excess calories; Z68.43 - Body mass index [BMI] 50.0-59.9, adult Plan: Reinforced diet/exercise as tolerated/lose weight States that he seems to have gained weight again since he was not able to get his Mounjaro Rx filled over the past month (11) Colon cancer screening: Code(s): Z12.11 - Encounter for screening for malignant neoplasm of colon Plan: Will refer him for screening colonoscopy - states that he has never had one done in the past Plan Follow up in 4 months Orders: Orders Complete Blood Count Auto Diff 4 Months D64.9 - Anemia, unspecified Lipid Panel 4 Months E78.00 - Pure hypercholesterolemia, unspecified Comprehensive [place]. Panel Fast 4 Months E78.00 - Pure hypercholesterolemia, unspecified TSH reflex Free T4 4 Months E78.00 - Pure hypercholesterolemia, unspecified UA CC w/rflx Micro + Cult 4 Months R30.0 - Dysuria Vitamin D 25-OH Total 4 Months E55.9 - Vitamin D deficiency, unspecified Microalbumin, Random (w Creat) 4 Months E11.9 - Type 2 diabetes mellitus without complications Referrals Gastroenterology Referral Z12.11 - Encounter for screening for malignant neoplasm of colon Hematology & Oncology Referral D72.829 - Elevated white blood cell count, unsp ecified Medications: New Ozempic (semaglutide) 2 mg (0.75 mL) subcut QWEEK 3 mL 2RF 4 weeks NS Coding Level of Care Code Est Pt Prev Care 40-64y(39589) Diagnoses Annual physical exam Z00.00 Type 1 diabetes mellitus with hyperglycemia E10.65 Diabetes mellitus complication status: with hyperglycemia Diabetes mellitus type: type 1 Mild nonproliferative diabetic retinopathy of both 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 macular edema associated with type 1 diabetes mellitus E10.3293 Diabetes mellitus macular edema: without macular edema Diabetes mellitus type: type 1 Diabetic retinopathy severity: with mild nonproliferative retinopathy Laterality: bilateral Pure hypercholesterolemia E78.00 Benign essential hypertension I10 Bandemia D72.825 Leukocytosis type: bandemia GERD without esophagitis K21.9 Insomnia, unspecified type G47.00 Insomnia type: unspecified Anxiety F41.9 Morbid obesity with BMI of 50.0-59.9, adult E66.01; Z68.43 Colon cancer screening Z12.11 Additional Codes PAYAL-7 Assessment Billing - PAYAL-7 Assessment Tool: PAYAL-7 Assessment [id number] ([id number])
[2023-06-08 09:50] VITALS: BP 140/84
== END 2023-06-08 11:25 | disposition home or self-care (01) ==
PROVIDERS: PCP Internal Medicine; Visit Provider Internal Medicine
DX: Z00.00 Encounter for general adult medical examination without abnormal findings (principal); E10.65 Type 1 diabetes mellitus with hyperglycemia; E66.01 Morbid (severe) obesity due to excess calories; Z68.43 Body mass index [BMI] 50.0-59.9, adult; E10.3293 Type 1 diabetes mellitus with mild nonproliferative diabetic retinopathy without macular edema, bilateral; E78.00 Pure hypercholesterolemia, unspecified; I10 Essential (primary) hypertension; D72.825 Bandemia; K21.9 Gastro-esophageal reflux disease without esophagitis; Z12.11 Encounter for screening for malignant neoplasm of colon; F41.9 Anxiety disorder, unspecified; G47.00 Insomnia, unspecified
CPT/HCPCS: 99396

== ENCOUNTER → 2023-06-29 08:47 | Outpatient (BNV) | payer OTHER, SELFPAY | PROVIDERS: PCP Internal Medicine; Referring Provider Internal Medicine; Visit Provider Internal Medicine | DX: D72.828 Other elevated white blood cell count (principal) | CPT/HCPCS: 99204; 99213 ==

== ENCOUNTER 2023-08-29 08:06 | Outpatient (AMB) | payer OTHER, SELFPAY ==
--- NOTE | 2023-08-29 08:32 | A.OFFVIS_ITS ---
Intake Intake Visit Reasons: DM/LVM Physical Therapy Assistant Required: No Accompanied by: Self / Same As Patient Allergies No Known Drug Allergies Allergy (Unknown, Verified 08/29/23 08:38) Unknown HPI Comprehensive Diabetes Asmnt Most Recent Diabetes Results: Microalb/Creat Ratio 10.3 ug/mg cr (<30) 05/18/23 Cholesterol 112 mg/dL (<200) 05/18/23 HDL Cholesterol 32 mg/dL (>40) L 05/18/23 Triglycerides 74 mg/dL (<150) 05/18/23 [facility] Medical History Diabetic foot infection Uncontrolled type 1 diabetes mellitus GERD without esophagitis Diabetic retinopathy Morbid obesity with BMI of 50.0-59.9, adult Anxiety Insomnia Benign essential hypertension Pure hypercholesterolemia Diabetes mellitus Surgical History H/O knee surgery Family History Mother High blood pressure Father High blood pressure High cholesterol Social History (Updated 06/29/23 @ 08:57 by Carol Marsh) Housing: Apartment Alcohol intake: current Alcohol intake frequency: holidays/special occasions only Patient Tobacco Use Status: Former Tobacco user e-Cigarette/Vaping Use: Never Used Second Hand Smoke Exposure: Yes service: No Current occupational status: employed 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 - importance of bolusing 15 minutes before meals ??? High Alert: 260 mg/dl ??? Low Alert: 80 mg/dl Above target 48% At target 62% Below target 0% Average glucose for the last week 186 mg/dL Patient continues to have overnight hyperglycemia see change to insulin pump below Discussed with patient upgrade to Dexcom G7 sensors, if he needs assistance in upgrade contact Diabetes Education nurse Turned on sleep schedule for the weekends as well as during the week Troubleshooting after starting new pod or inserting new insulin set: Occlusion, adhesive tape sensitivity, redness Check BG 2 hours after site change Patient understands the basic concepts of pump therapy, how to give insulin for meals and snacks, how to troubleshoot for hyper and hypoglycemia. Setting verified by CDCES, see changes to insulin to carb ratio Basal rate(s) (units/hour) : 12 AM to 6:30 AM 4.6 units / hr New ?12 AM to 6:30 AM 4.7 units / hr 6:30 AM to 3 PM 4.35 units / hr 3 PM to 12 AM 4.3 units / hr New ?3 PM to 10 PM 4.3 units / hr New 10 PM to 12 AM 4.7 units / hr Bolus setting Insulin Carbohydrate Ratio (s) 12 AM to 12 AM? 1:4.5 New 3 PM to 12 AM 1:4 Correction Factor / Sensitivity Factor 12 AM to 12 AM? 1:15 Active Insulin Time:? 5 hours Target(s): Control IQ 12 AM to 12 AM?110? mg/dL Patient Instructions: Patient will follow-up with Dr. Bojorquez after today's Education visit Patient will follow-up with electric motor and generator assembler in 1 month Coding Level of Care Code Est Pt Level 1 (08573) Diagnoses Type 1 diabetes mellitus with hyperglycemia E10.65 Diabetes mellitus type: type 1 Diabetes mellitus complication status: with hyperglycemia
== END 2023-08-29 08:37 | disposition home or self-care (01) ==
PROVIDERS: PCP Internal Medicine; Visit Provider Registered Nurse Diabetes Educator
DX: E10.65 Type 1 diabetes mellitus with hyperglycemia (principal)

== ENCOUNTER 2023-08-29 08:06 | Outpatient (AMB) | payer OTHER, SELFPAY ==
[2023-08-29 08:34] VITALS: BP 140/90; PULSE 92; BMI 56.1
--- NOTE | 2023-08-29 08:34 | MHC.OFFVIS ---
Vital Signs 08/29/23 08:34 Height 6 ft 2 in Weight 437 lb 2.826 oz BMI 56.1 BP 140/90 H Blood Pressure Location Lt brachial Position Sitting Pulse 92 Pulse Source Pulse Oximeter Intake Visit Reasons: T2DM Pump-lvm Intake Note: Patient presents today to follow up on DMT. 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5 mg PO DAILY 90 days cholecalciferol (vitamin D3) 50 mcg PO DAILY 90 days escitalopram oxalate 10 mg PO DAILY 90 days insulin lispro infuse up to 170 units daily via insulin pump subcutaneously use as directed; lansoprazole 30 mg PO DAILY lisinopril 20 mg PO DAILY 90 days lorazepam 0.5 mg PO DAILY PRN semaglutide (Ozempic) mg subcut tirzepatide (Mounjaro) 10 mg (0.5 mL) subcut QWEEK trazodone 50 mg PO BEDTIME PRN HPI Comments Details: 48 YO M with is seen in consultation for T2DM at the request of PCP. Initially diagnosed withDM in teenager when presented with hyperglycemia. Anti-GAD65 antibodies were negative possibly suggesting type 2 diabetes. However, C-peptide with glucose in the high 100s was low suggesting insulin deficiency. Currently on Ozempic 2 mg Qwkly Basal rate(s) (units/hour) : r New ?12 AM to 6:30 AM 4.7 units / hr 6:30 AM to 3 PM 4.35 units / hr New ?3 PM to 10 PM 4.3 units / hr New 10 PM to 12 AM 4.7 units / hr Bolus setting Insulin Carbohydrate Ratio (s) 12 AM to 12 AM? 1:4.5 New 3 PM to 12 AM 1:4 Correction Factor / Sensitivity Factor 12 AM to 12 AM? 1:15 Active Insulin Time:? 5 hours Target(s): Control IQ 12 AM to 12 AM?110? mg/dL Review of Dexcom shows average glucose to be 186 with GMI of 7.8 standard deviation 50. 51 % range with 49% hyperglycemia and 0% hypoglycemia. Pen shows elevation throughout the day Total daily dose is 143.87with 59% basal, 47% food bolus in 26% correction Reports low sugars occasionally . Treats lows with eats carbohydrates . Checks sugar after to ensure it is rising 30 min . No Family history of autoimmunity Has eyes checked yearly, - has appt 06/05/2023 , no retinopathy. Has neuropathy, last foot exam August 2022 , sees podiatry. Denies nephropathy, on CHRISTINE/ARB. Has HLD, on statin. Last LDL [] measured on []. Denies history of CAD. Saw podiatry Had diabetes education today Diet/Carb counting: yes Denies prior episodes of DKA. Denies prior severe episodes of hypoglycemia requiring help or hospitalization. Labs: wound L middle toe infection followed by wound clinic and infectious DX [facility] Medical History Diabetic foot infection Uncontrolled type 1 diabetes mellitus GERD without esophagitis Diabetic retinopathy Morbid obesity with BMI of 50.0-59.9, adult Anxiety Insomnia Benign essential hypertension Pure hypercholesterolemia Diabetes mellitus Surgical History H/O knee surgery Family History Mother High blood pressure Father High blood pressure High cholesterol Social History Housing: Apartment Alcohol intake: current Alcohol intake frequency: holidays/special occasions only Patient Tobacco Use Status: Former Tobacco user e-Cigarette/Vaping Use: Never Used Second Hand Smoke Exposure: Yes service: No Current occupational status: employed 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 [place] Cognitive needs: No Hearing needs: No Vision needs: Yes Physical Exam Vital Signs: Last Vital Signs Pulse 92 08/29/23 08:34 BP 140/90 H 08/29/23 08:34 BMI result Body Mass Index 56.1 Results Reviewed Results Reviewed: Laboratory Last Values Glucose (Clinic) 256 mg/dL (60-115) H 08/29/23 08:41 Assessment & Plan Assessment & Plan (1) Uncontrolled type 1 diabetes mellitus: Comment: BMI as per Ht of 6'2 on 03/2022 at 60 (469 lbs), on 10/2022 at 57 (444 lbs) Category: Medical Plan: Is a 48-year-old white male with a history of Type 2 diabetes moist likely Type 2 DM being treated with a tandem T slim pump and Mounjaro with fair somewhat deteriorated glycemic control and no known microvascular or macrovascular complications. Pump adjustments were made today by the healthcare educator previous Plan is as per diabetic Education pump adjustments. Plan is to change the Ozempic back to Mounjaro 10 mg if available Patient will follow-up with healthcare educator. We will also have patient follow-up in 1 month's time with Ariela Whyte NP (2) Pure hypercholesterolemia: Code(s): E78.00 - Pure hypercholesterolemia, unspecified Category: Medical Plan: LDL cholesterol at goal. on atorvastatin 40 mg. (3) Diabetes mellitus: Code(s): E11.9 - Type 2 diabetes mellitus without complications Category: Medical Qualifiers: Diabetes mellitus type: type 1 Diabetes mellitus complication status: with hyperglycemia Qualified Code(s): E10.65 - Type 1 diabetes mellitus with hyperglycemia Plan: See above plan Medications: Refilled tirzepatide (Mounjaro) 10 mg (0.5 mL) subcut QWEEK 2 mL 7RF Coding Level of Care Code Est Pt Level 4 (38648) Diagnoses Uncontrolled type 1 diabetes mellitus Pure hypercholesterolemia E78.00 Type 1 diabetes mellitus with hyperglycemia E10.65 Diabetes mellitus type: type 1 Diabetes mellitus complication status: with hyperglycemia
[2023-08-29 08:45] LABS: Glucose, Whole Blood 256 mg/dL (60-115)
== END 2023-08-29 09:29 | disposition home or self-care (01) ==
PROVIDERS: PCP Internal Medicine; Visit Provider Internal Medicine Endocrinology, Diabetes & Metabolism
DX: E78.00 Pure hypercholesterolemia, unspecified (principal); E10.65 Type 1 diabetes mellitus with hyperglycemia
CPT/HCPCS: 99214

== ENCOUNTER → 2023-08-29 08:06 | Outpatient (BNVA) | payer OTHER, SELFPAY | PROVIDERS: PCP Internal Medicine; Visit Provider Internal Medicine Endocrinology, Diabetes & Metabolism | DX: Z46.81 Encounter for fitting and adjustment of insulin pump (principal); E10.65 Type 1 diabetes mellitus with hyperglycemia; E78.00 Pure hypercholesterolemia, unspecified | CPT/HCPCS: 82947; 99211 ==

== ENCOUNTER → 2023-09-28 08:31 | Outpatient (BNVA) | payer OTHER, SELFPAY | PROVIDERS: PCP Internal Medicine; Visit Provider Registered Nurse Diabetes Educator | DX: Z46.81 Encounter for fitting and adjustment of insulin pump (principal); E10.69 Type 1 diabetes mellitus with other specified complication | CPT/HCPCS: 99211 ==

== ENCOUNTER → 2023-10-04 08:39 | Outpatient (BNVA) | payer OTHER, SELFPAY | PROVIDERS: PCP Internal Medicine; Visit Provider Dietitian, Registered | DX: E10.69 Type 1 diabetes mellitus with other specified complication (principal); Z96.41 Presence of insulin pump (external) (internal); Z71.3 Dietary counseling and surveillance | CPT/HCPCS: 97803 ==

== ENCOUNTER 2023-10-05 08:08 | Outpatient (AMB) | payer OTHER, SELFPAY ==
--- NOTE | 2023-10-05 07:22 | A.OFFVIS_ITS ---
Vital Signs 10/05/23 08:09 Height 6 ft 2 in Weight 440 lb 14.792 oz BMI 56.6 BP 130/80 Blood Pressure Location Rt brachial Position Sitting Pulse 96 Pulse Source Pulse Oximeter Intake Visit Reasons: T2DM Pump/LVM Intake Note: Patient presents today to re-establish treatment for Type 1 Diabetes Mellitus/Insulin Pump: Last Diabetic Eye exam: 07/2023 Last Podiatry Visit: 06/2023 Random Glucose: 227 mg/dL, Today Most HgA1c: 7.8%, 10/05/2023 Global Recruiter Required: No Accompanied by: Self / Same As Patient Allergies No Known Drug Allergies Allergy (Unknown, Verified 08/29/23 08:38) Unknown HPI Comments Details: 48 YO M with is seen in follow up for T2DM on a Tandem insulin pump. He was last seen by Dr. Bojorquez on 08/29/2023 and by Laurie FLORES on 09/28/23 for an upgrade to a DexBeestar G7 cgm. Has been on an insulin pump for 15 years A1c in the office today 7.8% which was up from his previous of 6.8 %. Initially diagnosed with DM as a teenager when he presented with hyperglycemia. Anti-GAD65 antibodies were negative possibly suggesting type 2 diabetes. However, C-peptide with glucose in the high 100s was low suggesting insulin deficiency. Currently on Mounjaro 10 mg weekly. Has low vitamin d on replacement D3 daily. Reports low sugars occasionally . Treats lows with eats carbohydrates . Checks sugar after to ensure it is rising 30 min . No Family history of autoimmunity Has eyes checked yearly, last appt 06/05/2023, 08/30 reports no retinopathy. Goes to Dr[facility] Greg Dunn at [facility] in [place]. Being watched for cataract Has neuropathy, last foot exam July 2023 , sees podiatry. Denies nephropathy, on CHRISTINE-inhibitor Has HLD, on statin. Last LDL [74] measured on [05/18/23]. Denies history of CAD. Had diabetes education on an ongoing basis Diet/Carb counting: Follows lower carb diet may not be entering all carbs and often waits to enter carbs 5-10 minutes after meal starts especially if he is in court. 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 Denies prior severe episodes of hypoglycemia requiring help or hospitalization. wound L middle toe infection followed by wound clinic and infectious DX Fibrosis-4 (Fib-4) Index for liver fibrosis (calculated on most recent lab work 06/30) [0.74 ] points Advanced fibrosis [ excluded} Approximate Fibrosis stage Jesse [0-1 ] *Use with caution in patients <35 or >65 years old, as the score has been shown to be less reliable in these patients. Dexcom average glucose: [166 ] 14 day continous glucose monitor report reviewed Glucose Managment indicator 7.3 % TIme in range: 4.7 % very high (above 250) 20 6 % high ?(181-250) 69 % in range ?(70-180] 0.5 % low (69-55) 0.1 % ?very low (below 54) Forty-three Standard Deviation 26 % Coefficent of variation In control IQ 95% of the time Average daily dose 122 units basal 65% 79 bolus 35% 43 average daily carbs 86 carb g patient's glucose does rise with the meal and takes time to return to baseline. From report bolus is being done after the sugars start to rise Basal rate(s) (units/hour) : 12 AM to 6:30 AM 4.7 units / hr 6:30 AM to 3 PM 4.9 units / hr 3 PM to 12 AM 4.6 units / hr 10 PM to 12 AM 4.2 units / hr Bolus setting Insulin Carbohydrate Ratio (s) 12 AM to 12 AM? 1:4.5 3 PM to 12 AM 1:4 Correction Factor / Sensitivity Factor 12 AM to 12 AM? 1:15 Active Insulin Time:? 5 hours Target(s): Control IQ 12 AM to 12 AM?110? mg/dL [facility] Medical History Diabetic foot infection Uncontrolled type 1 diabetes mellitus GERD without esophagitis Diabetic retinopathy Morbid obesity with BMI of 50.0-59.9, adult Anxiety Insomnia Benign essential hypertension Pure hypercholesterolemia Diabetes mellitus Surgical History H/O knee surgery Family History Mother High blood pressure Father High blood pressure High cholesterol Social History Housing: Apartment Alcohol intake: current Alcohol intake frequency: holidays/special occasions only Patient Tobacco Use Status: Former Tobacco user e-Cigarette/Vaping Use: Never Used Second Hand Smoke Exposure: Yes service: No Current occupational status: employed 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 Absence of acromegalic features. Obese Neck exam reveals nl size thyroid about 15 gms. No thyroid nodules palpable. Heart S1 S2, Reg R/R. No M/R G. Skin exam reveals absence of vitiligo, mild edema Extrem Other: foot exam deferred secondary to patient needing to leave Results AMB Hemoglobin A1c AMB Hemoglobin A1c 7.8 % Last Edit by RADHA Aquino on 10/05/23 08:29 Results Reviewed Results Reviewed: Laboratory Last Values Glucose (Clinic) 227 mg/dL (60-115) H 10/05/23 08:18 Hgb A1c (Clinic) 7.8 % (4.0-6.0) H 10/05/23 08:24 Laboratory Tests 03/14/23 05/18/23 06/29/23 09:35 09:22 09:18 Plt Count 205 Estimat Average Glucose 151 Hemoglobin A1c % 6.9 H Calcium 9.5 AST 13 ALT 15 Triglycerides 74 Cholesterol 112 LDL Cholesterol, Calc 66 HDL Cholesterol 32 L 25-OH Vitamin D Total 13.6 L TSH 1.32 Urine Microalbumin 31.0 Assessment & Plan Assessment & Plan (1) Diabetes mellitus: Code(s): E11.9 - Type 2 diabetes mellitus without complications Category: Medical Qualifiers: Diabetes mellitus complication status: with hyperglycemia Diabetes mellitus type: type 1 Qualified Code(s): E10.65 - Type 1 diabetes mellitus with hyperglycemia Plan: 48-year-old with diabetes on a Tandem insulin pump and Mounjaro 10 mg with history of negative PAYAL with low C-peptide with well controlled glucose. Microvascular/macrovascular complications: Neuropathy . Most recent microalbumin was 31 which is up from his baseline. A1c in the office today was 7.8%. We discussed accurately entering in carbohydrate g and to bolus before the meal rather than wait 5-10 minutes into the meal which is causing a larger rise in sugars. If this does not improve his glucose average he will contact the office otherwise we will see him back in 3 months. He has not yet switched over to the G7 and I reviewed the shorter 30 minute warmup time and smaller size of the sensor. After he completes territorial he will notify our office to send a prescription for the G7. Backup insulin pump failure plan Lantus 80 units per 24 hour. Humalog t.i.d. with the meals currently taking roughly 43 units bolus spread throughout the day. Orders: Orders AMB Hemoglobin A1c Today E10.65 - Type 1 diabetes mellitus with hyperglycemia Medications: New insulin glargine (Lantus U-100 Insulin) 70 units (0.7 mL) subcut DAILY 30 days PRN 10 mL 1RF pump failure MDD 70 units E10.65 - Type 1 diabetes mellitus with hyperglycemia glucagon 3 mg/actuation (Baqsimi) 3 mg intranasal .PRN 30 days PRN 2 ea 1RF Unresponsive hypoglycemia MDD 6 mg E10.65 - Type 1 diabetes mellitus with hyperglycemia acetone (urine) test (Ketone Urine Test strips) As directed p.r.n. glucose over 250, nausea, vomiting, illness tid 25 ea 1RF E10.65 - Type 1 diabetes mellitus with hyperglycemia Patient Instructions: The patient was counseled to always carry a source of sugar and on the rule of 15's: Take 3 glucose tablets and repeat again in 15 minutes if blood sugar is not in normal range. Continue to repeat every 15 minutes until blood sugar is normal. He is currently using juice/carb snack as an alternative to low sugar which is rare The patient was counseled to achieve a target A1C of 7% (154 avg). Fasting blood sugars should be 90-130 in the morning and less than 180 two hours after meals. Reviewed the relationship between poor diabetic control and the development of complications. Symptoms of DKA were reviewed: early: frequent urination, dry mouth, fatigue, feeling ill, severe symptoms: ketones in the urine, abdominal pain, nausea, vomiting and weakness. It is important to hydrate with sugar free liquids every 30 minutes and bring the sugars down to normal levels. Troubleshooting after starting new pod or inserting new insulin set: Occlusion, adhesive tape sensitivity, redness Check BG 2 hours after site change Safety information: Importance of a backup plan, for manual injections, proper prescriptions and emergency supplies ketone strips, and rules for testing for ketones Coding Level of Care Code Est Pt Level 5 (50737) Diagnoses Type 1 diabetes mellitus with hyperglycemia E10.65 Diabetes mellitus complication status: with hyperglycemia Diabetes mellitus type: type 1 Time Spent (min) 60 Comment Time reviewing labs/provider notes, glucose sensor/pump reports, face to face, chart doc
[2023-10-05 08:09] VITALS: BP 130/80; PULSE 96; BMI 56.6
[2023-10-05 08:22] LABS: Glucose, Whole Blood 227 mg/dL (60-115)
== END 2023-10-05 08:45 | disposition home or self-care (01) ==
PROVIDERS: PCP Internal Medicine; Visit Provider Nurse Practitioner Adult Health
DX: E10.65 Type 1 diabetes mellitus with hyperglycemia (principal)
CPT/HCPCS: 99215

== ENCOUNTER → 2023-10-05 08:08 | Outpatient (BNVA) | payer OTHER, SELFPAY | PROVIDERS: PCP Internal Medicine; Visit Provider Nurse Practitioner Adult Health | DX: E10.65 Type 1 diabetes mellitus with hyperglycemia (principal); Z96.41 Presence of insulin pump (external) (internal) | CPT/HCPCS: 82947; 83036 ==

== ENCOUNTER 2023-11-07 09:04 | Outpatient (AMB) | payer OTHER, SELFPAY ==
[2023-11-07 09:10] VITALS: BP 138/86; PULSE 85; O2SAT 96; BMI 56.0
--- NOTE | 2023-11-07 09:10 | A.OFFPC_ITS ---
Vital Signs 11/07/23 09:10 Height 6 ft 2 in Weight 436 lb 8.244 oz BMI 56.0 BP 138/86 Blood Pressure Location Lt brachial Position Sitting Pulse 85 Pulse Source Pulse Oximeter Pulse Oximetry (%) 96 Oxygen Delivery Method Room Air Intake Visit Reasons: DM, hyperlipidemia, HTN Mat Packer Required: No Accompanied by: Self / Same As Patient Allergies No Known Drug Allergies Allergy (Unknown, Verified 11/07/23 09:25) Unknown Medication List - Last Reconciled 11/07/23 by Rito Srinivasan MD acetone (urine) test (Ketone Urine Test strips) As directed p.r.n. glucose over 250, nausea, vomiting, illness tid atorvastatin 40 mg PO DAILY blood sugar diagnostic (Contour Next Test Strips) As directed 5 times a day blood-glucose meter (Contour Next Meter) As directed blood-glucose meter,continuous (Dexcom G6 Speech Language Pathologist Travel) As directed blood-glucose sensor (Dexcom G6 Sensor device) As directed change every 10 days blood-glucose transmitter (Dexcom G6 Transmitter device) USE DIRECTED carvedilol 12.5 mg PO DAILY 90 days cholecalciferol (vitamin D3) 50 mcg PO DAILY 90 days escitalopram oxalate 10 mg PO DAILY 90 days glucagon 3 mg/actuation (Baqsimi) 3 mg intranasal .PRN PRN 30 days MDD 6 mg insulin glargine (Lantus U-100 Insulin) 70 units (0.7 mL) subcut DAILY PRN 30 days MDD 70 units insulin lispro infuse up to 170 units daily via insulin pump subcutaneously use as directed; lansoprazole 30 mg PO DAILY lisinopril 20 mg PO DAILY 90 days lorazepam 0.5 mg PO DAILY PRN tirzepatide (Mounjaro) 10 mg (0.5 mL) subcut QWEEK trazodone 50 mg PO BEDTIME PRN Tobacco use date assessed: 11/07/23 Dental Screening Dental Screen Date: 11/07/23 Did you have a dental visit in the last 12 months?: No Did you have a dental problem in the last 6 months where you did not have access to dental care?: No Was dental information given to patient?: Patient has dentist HPI DM, hyperlipidemia, HTN HPI Details Patient comes in today for his follow up visit States that he feels okay and that all of his recent COVID symptoms have completely cleared up He denies any headaches or dizziness Denies any chest pains, no SOB No nausea/vomiting, no abdominal pain No change in bowel habits noted He was seen by endocrinology for follow up of his diabetes last month His HgbA1c was higher at 7.8% a month ago on 10/05/23 compared to his previous A1c of 6.9% back in May 2023 due to failure of his insulin pump This has since been resolved and his insulin dosage adjusted by endocrinology He was also advised to switch over to the G7 sensor but he has not done that yet He needs a couple of his Rx refilled He did not have any follow up labs done prior to his appt today [facility] Medical History Diabetic foot infection Uncontrolled type 1 diabetes mellitus GERD without esophagitis Diabetic retinopathy Morbid obesity with BMI of 50.0-59.9, adult Anxiety Insomnia Benign essential hypertension Pure hypercholesterolemia Diabetes mellitus Surgical History H/O knee surgery Family History Mother High blood pressure Father High blood pressure High cholesterol Social History Housing: Apartment Alcohol intake: current Alcohol intake frequency: holidays/special occasions only Patient Tobacco Use Status: Former Tobacco user e-Cigarette/Vaping Use: Never Used Second Hand Smoke Exposure: Yes service: No Current occupational status: employed 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 1. Little interest or pleasure in doing things: not at all 2. Feeling down, depressed, or hopeless: not at all 3. Trouble falling or staying asleep, or sleeping too much: not at all 4. Feeling tired or having little energy: not at all 5. Poor appetite or overeating: not at all 6. Feeling bad about yourself - or that you are a failure or have let yourself or your family down: not at all 7. Trouble concentrating on things, such as reading the newspaper or watching television: not at all 8. Moving or speaking so slowly that other people could have noticed. Or the opposite - being so fidgety or restless that you have been moving around a lot more than usual: not at all 9. Thoughts that you would be better off or of hurting yourself in some way: not at all Total score: 0 Depression Screening Interpretation: Negative Depression Screening Done: Yes 64474 - PHQ-9 Billing: Yes Source: Developed by Drs. Sander Foy, Lyndsey Sears, Ugo Doty and colleagues, with an educational howard from [employer]. Thrive Questionnaire Date Thrive assessed: 11/07/23 I am a: Patient What is your living situation today?: I have a steady place to live Within the past 12 months, did the food you bought not last and you didn't have the money to get more?: Never true Within the past 12 months, did you worry whether your food would run out before you got money to buy more?: Never true Do you have trouble paying for medicines?: No Do you have trouble getting transportation to medical appointments?: No Do you have trouble paying your heating and electricity bill?: No Do you have trouble taking care of your child, family member or friend?: No Do you have trouble with day-to-day activities such as bathing, preparing meals, shopping, managing finances, etc.?: No Are you currently unemployed and looking for a job?: No Are you interested in more education?: No Please select the resources that you would like help with: None Currently or been in a relationship where the following occur: No concerns reported THRIVE Score: 0 AUDIT C Alcohol Use Questionnaire (AUDIT-C) 1. How often do you have a drink containing alcohol?: Never 2. How many drinks containing alcohol do you have on a typical day when you are drinking?: 1 or 2 3. How often do you have six or more drinks on one occasion?: Never Total Score: 0 Score Reviewed/Action Taken: Yes PAYAL-7 AMB Questionnaire PAYAL-7 Date PAYAL - 7 assessed: 11/07/23 Feeling nervous, anxious, or on edge: 0 = Not at all Not being able to stop or control worryin = Not at all Worrying too much about different things: 0 = Not at all Trouble relaxin = Not at all Being so restless that it is hard to sit still: 0 = Not at all Becoming easily annoyed or irritable: 0 = Not at all Feeling afraid as if something awful might happen: 0 = Not at all Total PAYAL-7 score (0-4 normal; 5-9 mild; 10-14 moderate; 15-21 severe): 0 Source: Developed by Drs. Sander Foy, Lyndsey Sears, Ugo Doty and colleagues, with an educational howard from [employer]. PAYAL-7 Assessment Billing PAYAL-7 Assessment Tool: PAYAL-7 Assessment 34321 Review of Systems Const Denies chills, Denies fatigue, Denies fever(s) and Denies headache(s) ENT Denies dysphagia, Denies dizziness, Denies otalgia, Denies headache(s), Denies neck pain, Denies odynophagia and Denies sore throat Card Denies chest pain, Denies irregular heart rhythm, Denies palpitations and Denies dyspnea Resp Denies chest congestion, Denies cough and Denies dyspnea GI Denies abdominal pain, Denies constipation, Denies dysphagia, Denies heartburn, Reports loose stools (on and off), Denies nausea, Denies odynophagia and Denies vomiting Denies hematuria, Denies dysuria, Denies urinary frequency and Denies urinary urgency Musc Denies back pain, Denies arthralgias and Denies neck pain Skin/Breast Denies rash Neuro Denies dizziness, Denies headache(s) and Denies paresthesias Endo Denies fatigue and Denies palpitations Physical exam (Primary Care) Vital Signs: Last Vital Signs Pulse 85 11/07/23 09:10 BP 138/86 11/07/23 09:10 Pulse Ox 96 11/07/23 09:10 Oxygen Delivery Method Room Air 11/07/23 09:10 BMI result Body Mass Index 56.0 Tobacco/Smoking Status: Tobacco use Status Tobacco use date assessed 11/07/23 11/07/23 09:15 Patient Tobacco Use Status Former Tobacco user 11/07/23 09:15 e-Cigarette/Vaping Use Never Used 11/07/23 09:15 PHQ-9: PHQ-9 Score PHQ-9: Total score 0 09/30/24 09:15 Depression Screening Interpretation: Negative Thrive Assessment: Date of Thrive Assessment Date Thrive assessed 11/07/23 11/07/23 09:15 Currently or been in a relationship where the following occur: No concerns reported Const General: no acute distress and alert HENMT Ears: TM's normal bilaterally and EAC's normal Throat: Yes posterior oropharynx normal and Yes tonsils normal (no TP congestion) Neck Neck: Yes no lymphadenopathy and Yes supple Thyroid: Thyroid normal Resp Auscultation: clear to auscultation bilaterally, no rales and no wheezes Cardio Rate: regular rate Rhythm: regular rhythm Heart sounds: no murmurs GI Palpation (GI): Soft to palpation and nontender Auscultation: normal bowel sounds General: Yes no CVA tenderness Back/Spine/Pelvis Back: no CVA tenderness Thoracic/Lumbar Spine: No lumbar spinal tenderness Skin Rashes: no rashes Extrem General: Yes no clubbing, cyanosis or edema Assessment and Plan Assessment & Plan (1) Diabetes mellitus: Code(s): E11.9 - Type 2 diabetes mellitus without complications Qualifiers: Diabetes mellitus type: type 1 Diabetes mellitus complication status: with hyperglycemia Qualified Code(s): E10.65 - Type 1 diabetes mellitus with hyperglycemia Plan: His HgbA1c was at 7.8% at the endocrinology office a month ago; was at 6.9% back in May 2023 - goal is at least <7.0% He reportedly had some issues (failure) of his insulin pump recently, which has since been corrected/resolved and his insulin dosage has been adjusted by endocrinology Reinforced diabetic diet Continue Humalog U-100 150 units daily (he has an insulin pump) and Mounjaro 5 mg SQ Q week - started by Dr. Bojorquez a few months ago Follow up with endocrinology as scheduled He had his annual diabetic eye exam done back in May 2023 (2) Diabetic retinopathy: Code(s): E11.319 - Type 2 diabetes mellitus with unspecified diabetic retinopathy without macular edema Qualifiers: Diabetes mellitus type: type 1 Diabetic retinopathy severity: with mild nonproliferative retinopathy Diabetes mellitus macular edema: without macular edema Laterality: bilateral Qualified Code(s): E10.3293 - Type 1 diabetes mellitus with mild nonproliferative diabetic retinopathy without macular edema, bilateral Plan: Last eye exam was done in May 2023 - goes to Dr. Greg Dunn at [facility] in [place] Follow up with electronic coils supervisor as scheduled for his annual diabetic eye exam (3) Pure hypercholesterolemia: Code(s): E78.00 - Pure hypercholesterolemia, unspecified Plan: His LDL cholesterol was at 66 mg/dl when last checked in May 2023; he has not had any other follow up labs done since Reinforced low cholesterol diet Continue Atorvastatin 80 mg QD Will recheck his labs and fasting lipids in 4 months for follow up (4) Benign essential hypertension: Code(s): I10 - Essential (primary) hypertension Plan: Reinforced low sodium diet - goal is systolic BP of 120 mm or less Continue Lisinopril 20 mg QD and Carvedilol 12.5 mg BID (5) Leukocytosis (leucocytosis): Code(s): D72.829 - Elevated white blood cell count, unspecified Qualifiers: Leukocytosis type: bandemia Qualified Code(s): D72.825 - Bandemia Plan: Patient is advised that his CBC over the years have always shown the presence of a mild/low level leucocytosis (absolute neutrophilia) since 2021 and this is still present on his recent labs He was referred to and seen by hematology a few months ago and advised that 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 Follow up with hematology as scheduled or as needed (6) GERD without esophagitis: Code(s): K21.9 - Gastro-esophageal reflux disease without esophagitis Plan: Reinforced dietary restrictions Continue Lansoprazole 30 mg QD (7) Insomnia: Code(s): G47.00 - Insomnia, unspecified Qualifiers: Insomnia type: unspecified Qualified Code(s): G47.00 - Insomnia, unspecified Plan: Sleep hygiene reinforced Continue Trazodone 50 mg Q HS PRN (8) Anxiety: Code(s): F41.9 - Anxiety disorder, unspecified Plan: Continue Escitalopram 10 mg QD and Lorazepam 0.5 mg QD PRN - states that he rarely has to take his Lorazepam (mostly once a month when needed) (9) Morbid obesity with BMI of 50.0-59.9, adult: Code(s): E66.01 - Morbid (severe) obesity due to excess calories; Z68.43 - Body mass index [BMI] 50.0-59.9, adult Plan: Reinforced diet/exercise as tolerated/lose weight Plan Follow up in 4 months Orders: Orders Hemoglobin A1c 4 Months E11.9 - Type 2 diabetes mellitus without complications Lipid Panel 4 Months E78.00 - Pure hypercholesterolemia, unspecified Microalbumin, Random (w Creat) 4 Months E11.9 - Type 2 diabetes mellitus without complications UA CC w/rflx Micro + Cult 4 Months R30.0 - Dysuria Vitamin D 25-OH Total 4 Months E55.9 - Vitamin D deficiency, unspecified Complete Blood Count Auto Diff 4 Months D64.9 - Anemia, unspecified Comprehensive Lucinda. Panel Fast 4 Months E78.00 - Pure hypercholesterolemia, unspecified TSH reflex Free T4 4 Months E78.00 - Pure hypercholesterolemia, unspecified Medications: Refilled escitalopram oxalate 10 mg PO DAILY 90 days 90 tabs 1RF F41.9 - Anxiety disorder, unspecified insulin lispro infuse up to 170 units daily via insulin pump subcutaneously use as directed; 160 mL 5RF E10.65 - Type 1 diabetes mellitus with hyperglycemia Coding Level of Care Code Est Pt Level 4 (01875) Diagnoses Type 1 diabetes mellitus with hyperglycemia E10.65 Diabetes mellitus type: type 1 Diabetes mellitus complication status: with hyperglycemia Mild nonproliferative diabetic retinopathy of both 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 macular edema associated with type 1 diabetes mellitus E10.3293 Diabetes mellitus type: type 1 Diabetic retinopathy severity: with mild nonproliferative retinopathy Diabetes mellitus macular edema: without macular edema Laterality: bilateral Pure hypercholesterolemia E78.00 Benign essential hypertension I10 Bandemia D72.825 Leukocytosis type: bandemia GERD without esophagitis K21.9 Insomnia, unspecified type G47.00 Insomnia type: unspecified Anxiety F41.9 Morbid obesity with BMI of 50.0-59.9, adult E66.01; Z68.43 Additional Codes PAYAL-7 Assessment Billing - PAYAL-7 Assessment Tool: PAYAL-7 Assessment 49395 ([id number])
== END 2023-11-07 09:33 | disposition home or self-care (01) ==
PROVIDERS: PCP Internal Medicine; Visit Provider Internal Medicine
DX: E10.65 Type 1 diabetes mellitus with hyperglycemia (principal); E10.3293 Type 1 diabetes mellitus with mild nonproliferative diabetic retinopathy without macular edema, bilateral; E66.01 Morbid (severe) obesity due to excess calories; Z68.43 Body mass index [BMI] 50.0-59.9, adult; E78.00 Pure hypercholesterolemia, unspecified; I10 Essential (primary) hypertension; D72.825 Bandemia; K21.9 Gastro-esophageal reflux disease without esophagitis; G47.00 Insomnia, unspecified; F41.9 Anxiety disorder, unspecified

== ENCOUNTER → 2023-11-07 09:04 | Outpatient (BNVA) | payer OTHER, SELFPAY | PROVIDERS: PCP Internal Medicine; Visit Provider Internal Medicine | DX: E10.65 Type 1 diabetes mellitus with hyperglycemia (principal); E10.3293 Type 1 diabetes mellitus with mild nonproliferative diabetic retinopathy without macular edema, bilateral; E78.00 Pure hypercholesterolemia, unspecified; I10 Essential (primary) hypertension; D72.825 Bandemia; K21.9 Gastro-esophageal reflux disease without esophagitis; G47.00 Insomnia, unspecified; F41.9 Anxiety disorder, unspecified; E66.01 Morbid (severe) obesity due to excess calories; Z68.43 Body mass index [BMI] 50.0-59.9, adult; Z79.899 Other long term (current) drug therapy | CPT/HCPCS: 96127 ==

== ENCOUNTER 2023-12-21 14:33 | Outpatient (AMB) | payer OTHER, SELFPAY ==
[2023-12-21 14:34] VITALS: BP 132/84; PULSE 76; O2SAT 97; BMI 57.2
--- NOTE | 2023-12-21 14:34 | MHC.PC.OV ---
Vital Signs 12/21/23 14:34 Height 6 ft 2 in Weight 445 lb 5.34 oz BMI 57.2 BP 132/84 Blood Pressure Location Lt brachial Position Sitting Pulse 76 Pulse Source Pulse Oximeter Pulse Oximetry (%) 97 Oxygen Delivery Method Room Air Intake Visit Reasons: [facility] 12/07 food poisoning Addictions Therapist Required: No Accompanied by: Self / Same As Patient Allergies No Known Drug Allergies Allergy (Unknown, Verified 12/21/23 14:34) Unknown Tobacco use date assessed: 12/21/23 Dental Screening Dental Screen Date: 12/21/23 Did you have a dental visit in the last 12 months?: Yes Did you have a dental problem in the last 6 months where you did not have access to dental care?: No Was dental information given to patient?: Patient has dentist HPI HPI Comments History of Present Illness Details 48 yo male patient who presents for HDF. He was admitted at [facility] on 12/14/23 and discharged home 12/16/23 for Pneumonia and Gastroenteritis. He completed his antibiotics and he is back at work already. Today denies SOB, Wheezing, chest tightness or Pain. [facility] Medical History Diabetic foot infection Uncontrolled type 1 diabetes mellitus GERD without esophagitis Diabetic retinopathy Morbid obesity with BMI of 50.0-59.9, adult Anxiety Insomnia Benign essential hypertension Pure hypercholesterolemia Diabetes mellitus Surgical History H/O knee surgery Family History Mother High blood pressure Father High blood pressure High cholesterol Social History Housing: Apartment Alcohol intake: current Alcohol intake frequency: holidays/special occasions only Patient Tobacco Use Status: Former Tobacco user e-Cigarette/Vaping Use: Never Used Second Hand Smoke Exposure: Yes service: No Current occupational status: employed 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 1. Little interest or pleasure in doing things: not at all 2. Feeling down, depressed, or hopeless: not at all 3. Trouble falling or staying asleep, or sleeping too much: not at all 4. Feeling tired or having little energy: not at all 5. Poor appetite or overeating: not at all 6. Feeling bad about yourself - or that you are a failure or have let yourself or your family down: not at all 7. Trouble concentrating on things, such as reading the newspaper or watching television: not at all 8. Moving or speaking so slowly that other people could have noticed. Or the opposite - being so fidgety or restless that you have been moving around a lot more than usual: not at all 9. Thoughts that you would be better off or of hurting yourself in some way: not at all Total score: 0 Depression Screening Interpretation: Negative Depression Screening Done: Yes 52640 - PHQ-9 Billing: Yes Source: Developed by Drs. Sander Foy, Lyndsey Sears, Ugo Doty and colleagues, with an educational howard from [email or web address]. Thrive Questionnaire Date Thrive assessed: 12/21/23 I am a: Patient What is your living situation today?: I have a steady place to live Within the past 12 months, did the food you bought not last and you didn't have the money to get more?: Never true Within the past 12 months, did you worry whether your food would run out before you got money to buy more?: Never true Do you have trouble paying for medicines?: No Do you have trouble getting transportation to medical appointments?: No Do you have trouble paying your heating and electricity bill?: No Do you have trouble taking care of your child, family member or friend?: No Do you have trouble with day-to-day activities such as bathing, preparing meals, shopping, managing finances, etc.?: No Are you currently unemployed and looking for a job?: No Are you interested in more education?: No Please select the resources that you would like help with: None Currently or been in a relationship where the following occur: No concerns reported THRIVE Score: 0 AUDIT C Alcohol Use Questionnaire (AUDIT-C) 1. How often do you have a drink containing alcohol?: Never 2. How many drinks containing alcohol do you have on a typical day when you are drinking?: 1 or 2 3. How often do you have six or more drinks on one occasion?: Never Total Score: 0 Score Reviewed/Action Taken: Yes PAYAL-7 AMB Questionnaire PAYAL-7 Date PAYAL - 7 assessed: 12/21/23 Feeling nervous, anxious, or on edge: 0 = Not at all Not being able to stop or control worryin = Not at all Worrying too much about different things: 0 = Not at all Trouble relaxin = Not at all Being so restless that it is hard to sit still: 0 = Not at all Becoming easily annoyed or irritable: 0 = Not at all Feeling afraid as if something awful might happen: 0 = Not at all Total PAYAL-7 score (0-4 normal; 5-9 mild; 10-14 moderate; 15-21 severe): 0 Source: Developed by Drs. Sander Foy, Lyndsey Sears, Ugo Doty and colleagues, with an educational howard from [email or web address]. PAYAL-7 Assessment Billing PAYAL-7 Assessment Tool: PAYAL-7 Assessment 45285 Review of Systems Const All systems reviewed & are unremarkable except as noted in HPI and below Physical exam (Primary Care) Vital Signs: Last Vital Signs Pulse 76 12/21/23 14:34 BP 132/84 12/21/23 14:34 Pulse Ox 97 12/21/23 14:34 Oxygen Delivery Method Room Air 12/21/23 14:34 BMI result Body Mass Index 57.2 Tobacco/Smoking Status: Tobacco use Status Tobacco use date assessed 12/21/23 12/21/23 14:38 Patient Tobacco Use Status Former Tobacco user 12/21/23 14:38 e-Cigarette/Vaping Use Never Used 12/21/23 14:38 PHQ-9: PHQ-9 Score PHQ-9: Total score 0 12/21/23 14:38 Depression Screening Interpretation: Negative Thrive Assessment: Date of Thrive Assessment Date Thrive assessed 12/21/23 12/21/23 14:38 Currently or been in a relationship where the following occur: No concerns reported Const General: cooperative and no acute distress Nutritional Appearance: obese morbidly obese Orientation/consciousness: patient oriented x3 Resp Effort & Inspection: normal respiratory effort and able to speak in complete sentences Auscultation: clear to auscultation bilaterally Cardio Heart sounds: S1 normal heart sound present and S2 normal heart sound present Neuro General: patient oriented x3 Coding Level of Care Code Est Pt Level 4 (08026) Diagnoses Community acquired bacterial pneumonia J15.9 Gastroenteritis K52.9 Additional Codes PAYAL-7 Assessment Billing - PAYAL-7 Assessment Tool: PAYAL-7 Assessment 36979 ([id number]) PHQ-9 - 50935 - PHQ-9 Billing: Yes ([id number]) Time Spent (min) 20 Assessment & Plan Assessment & Plan (1) Community acquired bacterial pneumonia: Code(s): J15.9 - Unspecified bacterial pneumonia Plan: Stable, completed Abx. (2) Gastroenteritis: Code(s): K52.9 - Noninfective gastroenteritis and colitis, unspecified Plan: Resolved. No further concerns.
== END 2023-12-21 15:04 | disposition home or self-care (01) ==
PROVIDERS: PCP Internal Medicine; Visit Provider Nurse Practitioner Family
DX: J15.9 Unspecified bacterial pneumonia (principal); K52.9 Noninfective gastroenteritis and colitis, unspecified

== ENCOUNTER → 2023-12-21 14:33 | Outpatient (BNVA) | payer OTHER, SELFPAY | PROVIDERS: PCP Internal Medicine; Visit Provider Nurse Practitioner Family | DX: J15.9 Unspecified bacterial pneumonia (principal); K52.9 Noninfective gastroenteritis and colitis, unspecified | CPT/HCPCS: 96127 ==

== ENCOUNTER → 2023-12-29 08:36 | Outpatient (BNVA) | payer OTHER, SELFPAY | PROVIDERS: PCP Internal Medicine; Visit Provider Registered Nurse Diabetes Educator | DX: Z46.81 Encounter for fitting and adjustment of insulin pump (principal); E10.9 Type 1 diabetes mellitus without complications | CPT/HCPCS: 99211 ==

== ENCOUNTER 2024-02-21 08:09 | Outpatient (AMB) | payer OTHER, SELFPAY ==
--- NOTE | 2024-02-21 07:06 | MHC.OFFVIS ---
Intake Visit Reasons: Type 1 DM Allergies No Known Drug Allergies Allergy (Unknown, Verified 12/21/23 14:34) Unknown [facility] Medical History Diabetic foot infection Uncontrolled type 1 diabetes mellitus GERD without esophagitis Diabetic retinopathy Morbid obesity with BMI of 50.0-59.9, adult Anxiety Insomnia Benign essential hypertension Pure hypercholesterolemia Diabetes mellitus Surgical History H/O knee surgery Family History Mother High blood pressure Father High blood pressure High cholesterol Social History Housing: Apartment Alcohol intake: current Alcohol intake frequency: holidays/special occasions only Patient Tobacco Use Status: Former Tobacco user e-Cigarette/Vaping Use: Never Used Second Hand Smoke Exposure: Yes service: No Current occupational status: employed 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 Absence of acromegalic features. Neck exam reveals nl size thyroid about 15 gms. No thyroid nodules palpable. Heart S1 S2, Reg R/R. No M/R G. Skin exam reveals absence of vitiligo or acanthosis nigricans. Assessment & Plan Assessment & Plan (1) Diabetes mellitus: Code(s): E11.9 - Type 2 diabetes mellitus without complications Category: Medical Qualifiers: Diabetes mellitus type: type 1 Diabetes mellitus complication status: with hyperglycemia Qualified Code(s): E10.65 - Type 1 diabetes mellitus with hyperglycemia Plan: 49-year-old on an insulin pump. See setting changes The patient had an opportunity to ask questions regarding treatment plan. The patient expressed understanding and agreement with the above treatment plan. The patient is aware they should contact our office by phone for worsening glucose readings or for any low blood sugars which may warrant a change in diabetes medication. Compliance is encouraged with medications and any followup testing/consults which may have been ordered. Patient Instructions: Symptoms of DKA (diabetic ketoacidosis): early: frequent urination, dry mouth, fatigue, feeling ill, severe symptoms: ketones in the urine, abdominal pain, nausea, vomiting and weakness. It is important to hydrate with sugar free liquids every 15-30 minutes and bring the sugars down to normal levels. If you are moderate or severe with ketones or unable to bring glucose to less than 200, go to the emergency room. Troubleshooting after starting new pod or inserting new insulin set: Occlusion, adhesive tape sensitivity, redness Check BG 2 hours after site change Safety information: Importance of a backup plan, for manual injections, proper prescriptions and emergency supplies ketone strips, and rules for testing for ketones Coding Level of Care Code Est Pt Level 4 (81730) Complex EM visit Add On G2211 Diagnoses Type 1 diabetes mellitus with hyperglycemia E10.65 Diabetes mellitus type: type 1 Diabetes mellitus complication status: with hyperglycemia
== END 2024-02-21 08:16 | disposition left against medical advice (07) ==
PROVIDERS: PCP Internal Medicine; Visit Provider Nurse Practitioner Adult Health
DX: E10.65 Type 1 diabetes mellitus with hyperglycemia (principal)
CPT/HCPCS: 99214

== ENCOUNTER → 2024-02-21 08:09 | Outpatient (BNVA) | payer OTHER, SELFPAY | PROVIDERS: PCP Internal Medicine; Visit Provider Nurse Practitioner Adult Health | DX: E10.65 Type 1 diabetes mellitus with hyperglycemia (principal); Z46.81 Encounter for fitting and adjustment of insulin pump | CPT/HCPCS: 82947; 83036 ==

== ENCOUNTER 2024-02-21 08:16 | Outpatient (AMB) | payer OTHER, SELFPAY ==
[2024-02-21 08:17] VITALS: BP 138/80; PULSE 80; BMI 59.8
--- NOTE | 2024-02-21 08:17 | A.OFFVIS_ITS ---
Vital Signs 02/21/24 08:17 Height 6 ft Weight 440 lb 14.792 oz BMI 59.8 BP 138/80 Blood Pressure Location Rt brachial Position Sitting Pulse 80 Pulse Source Pulse Oximeter Intake Visit Reasons: DM Intake Note: Patient presents today for a follow-up for Type 1 Diabetes Mellitus/Insulin Pump: Last Diabetic Eye exam: 07/2023 Last Podiatry Visit: 06/2023 Most Recent HgA1c: 7.1%, 02/21/2024 Random Glucose: 131 mg/dL, Today Secondary Special Education Teacher Required: No Accompanied by: Self / Same As Patient Allergies No Known Drug Allergies Allergy (Unknown, Verified 02/21/24 08:19) Unknown [facility] Medical History Diabetic foot infection Uncontrolled type 1 diabetes mellitus GERD without esophagitis Diabetic retinopathy Morbid obesity with BMI of 50.0-59.9, adult Anxiety Insomnia Benign essential hypertension Pure hypercholesterolemia Diabetes mellitus Surgical History H/O knee surgery Family History Mother High blood pressure Father High blood pressure High cholesterol Social History Housing: Apartment Alcohol intake: current Alcohol intake frequency: holidays/special occasions only Patient Tobacco Use Status: Former Tobacco user e-Cigarette/Vaping Use: Never Used Second Hand Smoke Exposure: Yes service: No Current occupational status: employed 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
[2024-02-21 08:28] LABS: Glucose, Whole Blood 131 mg/dL (60-115)
== END 2024-02-21 08:46 | disposition home or self-care (01) ==
LOC: HO.ENCR 08:16
PROVIDERS: PCP Internal Medicine; Visit Provider Nurse Practitioner Adult Health
DX: E10.65 Type 1 diabetes mellitus with hyperglycemia (principal)

== ENCOUNTER 2024-03-07 15:37 | Outpatient (AMB) | payer OTHER, SELFPAY ==
[2024-03-07 15:39] VITALS: BP 148/88; PULSE 84; O2SAT 97; BMI 56.3
--- NOTE | 2024-03-07 15:39 | MHC.OFFVIS ---
Vital Signs 03/07/24 15:39 Height 6 ft 2 in Weight 438 lb 11.518 oz BMI 56.3 BP 148/88 H Blood Pressure Location Rt brachial Position Sitting Pulse 84 Pulse Source Pulse Oximeter Pulse Oximetry (%) 97 Oxygen Delivery Method Room Air Intake Visit Reasons: Colonoscopy consult - R/S Pt. Intake Note: NEW PATIENT for initial colo screening Chief Complaint; Reflux well controlled with PPI. However, pt does have moderate sx without the medication. Pt also reports diarrhea and nausea which he attributes to medications that he is taking currently/antibiotic x 14 days Purification Operator Helper Required: No Accompanied by: Self / Same As Patient Allergies No Known Drug Allergies Allergy (Unknown, Verified 03/07/24 15:39) Unknown HPI HPI Colonoscopy consult - R/S Pt.: Details: 49 year old? male with past medical history of hypertension, GERD, diabetes, hyperlipidemia, HORACIO is here today for pre colonoscopy screening.? Patient was sent to us by his PCP.? This is his first colonoscopy screening.? Patient currently is on antibiotics for osteomyelitis and has occasional diarrhea. Patient denies any abdominal pain or discomfort. Patient has been on lansoprazole for GERD for very long time. Symptoms are suppressed for the most part. Occasional GERD but not often. Denies any personal or family history of gastrointestinal disease, colon polyps, or CRC.? Denies history of difficulty with sedation or anesthesia in the past.? Patient has sleep apnea and uses CPAP every night..? Denies any history of cardiac, renal, pulmonary, or hepatic disease.?? No history of infectious? diseases like hepatitis A, B, C, HIV or tuberculosis.? Patient is not on any anticoagulation [facility] Medical History Diabetic foot infection Uncontrolled type 1 diabetes mellitus GERD without esophagitis Diabetic retinopathy Morbid obesity with BMI of 50.0-59.9, adult Anxiety Insomnia Benign essential hypertension Pure hypercholesterolemia Diabetes mellitus Surgical History H/O knee surgery Family History Mother High blood pressure Father High blood pressure High cholesterol Social History Housing: Apartment Alcohol intake: current Alcohol intake frequency: holidays/special occasions only Patient Tobacco Use Status: Former Tobacco user e-Cigarette/Vaping Use: Never Used Second Hand Smoke Exposure: Yes service: No Current occupational status: employed 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 [place] Cognitive needs: No Hearing needs: No Vision needs: Yes Review of Systems Const Denies weight gain and Denies weight loss ENT Reports no additional complaints, Denies dysphagia and Denies odynophagia Card Reports no additional complaints Resp Reports no additional complaints GI Denies abdominal pain, Denies belching, Denies melena, Reports bloating, Denies change in bowel habits, Denies dysphagia, Denies excessive flatus, Denies dyspepsia, Denies heartburn, Denies diarrhea, Reports loose stools (On antibiotic therapy for osteomyelitis), Denies nausea, Denies odynophagia and Denies vomiting Reports no additional complaints Musc Reports no additional complaints Neuro Reports no additional complaints Psych Reports no additional complaints Endo Reports no additional complaints Physical Exam Vital Signs: Last Vital Signs Pulse 84 03/07/24 15:39 BP 148/88 H 03/07/24 15:39 Pulse Ox 97 03/07/24 15:39 Oxygen Delivery Method Room Air 03/07/24 15:39 BMI result Body Mass Index 56.3 Const General: no acute distress Nutritional Appearance: obese Orientation/consciousness: patient oriented x3 Resp Effort & Inspection: normal respiratory effort, able to speak in complete sentences, no tracheal deviation and symmetric chest movement Auscultation: clear to auscultation bilaterally Cardio Rate: regular rate GI Inspection: Yes normal to inspection, No distended and Yes obesity Palpation (GI): Soft to palpation, not firm, nontender and No hepatosplenomegaly present Auscultation: normal bowel sounds General: Yes no CVA tenderness Back/Spine/Pelvis Back: no CVA tenderness Skin General skin exam: elasticity normal, turgor normal and dry skin Neuro General: patient oriented x3 Psych Appearance: grossly normal Mental Status: mental status grossly normal Assessment & Plan Assessment & Plan (1) Colon cancer screening: Code(s): Z12.11 - Encounter for screening for malignant neoplasm of colon Category: Medical (2) GERD without esophagitis: Code(s): K21.9 - Gastro-esophageal reflux disease without esophagitis Category: Medical Plan Patient denies any cardiac or respiratory symptoms.? Currently patient is taking antibiotics Augmentin and doxycycline for osteomyelitis and is having occasional loose stools. Patient denies any abdominal pain or discomfort. He is on lansoprazole daily and has been for many years. Occasional breakthrough reflux. Patient will be sent for upper endoscopy as well. Denies any issues with anesthesia in the past.? History of sleep apnea on CPAP.? No history infectious diseases in the past or present. Patient is on insulin pump, he will speak to his mortgage closer what basal rate he should set his pump day before procedure.? Not on any anticoagulation therapy.? No family or personal history of colon cancer or polyps.? Patient denies melena, hematochezia, unintentional weight loss or ribbon like stools.? Discussed at length the pre-procedure,? prep, diet & medications as well as what to expect prior, during and after the procedure.?? Stressed the importance of good bowel prep.? Recommended the use of Vaseline or Calmoseptine OTC & baby wipes with bowel movements to promote comfort.? ?Patient verbalizes understanding and agrees to plan of care.? He was given the opportunity to ask questions and all questions answered.? We will see him after the procedure.? Medications: New bisacodyl (Dulcolax (bisacodyl)) Start taking 2 tablet every night 6 days before the procedure and 1 day before procedure take 2 tablets at noon time followed by MiraLax prep 10 mg (2 x 5 mg) PO BEDTIME 14 tabs 0RF Z12.11 - Encounter for screening for malignant neoplasm of colon polyethylene glycol 3350 (Miralax) As directed by gastroenterology department at [facility] 238 grams PO ONCE 238 grams 0RF Z12.11 - Encounter for screening for malignant neoplasm of colon Coding Level of Care Code New Pt Level 3 (10179) Diagnoses Colon cancer screening Z12.11 GERD without esophagitis K21.9 Time Spent (min) 40 Comment 30 minutes spent with patient and additional 10 minutes spent reviewing his records
--- OUTSIDE RECORDS SUMMARY | 2024-03-07 17:27 | XMS_ITS ---
Author Organization [facility] Address [address] [place] [address] Care Team Providers Care Lab Aide Name Role Phone Craig SANCHEZ, [place] Primary Care Provider Unava ilable Becki Guevara Unavailable [phone] REASON FOR VISIT Inf Disease/Vasc Encounters Encounter Location Date Provider Diagnosis [facility] [address] [place] [address] 02/14/2024 Becki Guevara Plan Of Treatment No Information Progress Notes * Evelia LOUISOB: 7 (49 yo M)Acc No.[id number]:02/14/2024 Patient:?Ryan LOUIS :1975???Age:49 Y???Sex:Male Address:[address] [place] [address], [address] * * Date:?
--- OUTSIDE RECORDS SUMMARY | 2024-03-07 17:27 | XMS_ITS | Patient Health Record ---
Author Organization [facility] Address [address] [place] [place] [address] Care Team Providers Care Charter Driver Name Role Phone Craig SANCHEZ, Rito Primary Care Provider Unava anjanairaida Viv Guevaraine Unavailable [phone] Allergies No Known Allergies Results Component Value Reference Range Notes HEMOGLOBIN A1C (GLYCOHEMOGLO BIN) Reviewed date:02/14/2024 09:26:37 AM Interpretation: Performing Lab: Notes/Report: HEMOGLOBIN A1C % (HH) 6.8 HEMOGLOBIN A1C (GLYCOHEMOGLO BIN) Reviewed date:12/30/2023 12:20:38 PM Interpretation: Performing Lab: Notes/Report: TOTAL HEMOGLOBIN (HGBA1C) 6.8 Reason For Referral No Information Medications Medication SIG (Take, Route, Frequency, Duration) Notes Start Date End Date Status Escitalopram Oxalate 5 MG 1 tablet Orally Once a day Active Simvastatin 20 MG 1 tablet in the even ing Orally Once a day Active Extra Depth Orthopedic Shoes (1 Pair) with Customized Heat Molded Multidensity Innersoles (3 Pair) as directed Dx: IDDM/Polyneuropathy (E10.42), Hammertoe Foot Deformity (M20.41,M20.42), Preulcerative Skin Lesion(s) (L85.1) 01/07/2021 Active Ciprofloxacin HCl 500 MG 1 tablet Orally every 12 hrs for 10 days 12/30/2023 Active Lisinopril Active HumaLOG Active Cephalexin 500 MG 1 capsule Orally Fou r times a day for 10 days 12/17/2020 Not-Taki ng Mounjaro Active Bactrim DS 800-160 MG 1 tablet Orally Tw ice a day for 10 days 12/23/2020 Not-Taking Cephalexin 500 MG 1 capsule Orally twi ce a day for 10 days 09/30/2021 Not-Taking Bactrim DS 800-160 MG 1 tablet Orally Tw ice a day for 10 days Not-Taking Carvedilol 3.125 MG 1 tablet with food Orally Active Immunizations Vaccine Route Administration Date Status Comme nts Influenza Unknown 11/19/2021 Administered Social History Tobacco Use: Social History Observation Description Date Details (start date - stop date) Never Smoker NA - NA Alcohol Screen Question Answer Notes Did you have a drink contain ing alcohol in the past year? Yes How often did you have a dri nk containing alcohol in the past year? Monthly or less (1 point) How many drinks did you have on a typical day when you were drinking in the past year? 1 or 2 drinks (0 point) How often did you have 6 or more drinks on one occasion in the past year? Never (0 point) Points 1 Interpretation Negative Tobacco use other than smoking: Question Answer Notes Are you an other tobacco user? No Tobacco Control (Standard) Question Answer Notes Tobacco use: Nonsmoker Problems Problem Type SNOMED Code ICD Code Onset Dates Problem Status W/U Status Risk Notes Problem Acquired hammer toe of right foot (6640549206701824) Other hammer toe(s) (acquired), right foot (M20.41) Active confirmed Problem Acquired hammer toe of left foot (5208936426464679) Other hammer toe(s) (acquired), left foot (M20.42) Active confirmed Problem Ulcer of toe (312265538) Non-pressure chronic ulcer of other part of left foot limited to breakdown of skin (L97.521) Active confirmed Problem Acquired hammer toe of left foot (3466591036463370) Other hammer toe(s) (acquired), left foot (M20.42) Active confirmed Problem Polyneuropathy due to diabetes mellitus type I (319013973) Type 1 diabetes mellitus with diabetic polyneuropathy (E10.42) Active confirmed Problem 766513436 Hammer toe of left foot (M20.42) Active confirmed Problem 2827863683544827 Other acute osteomyelitis of left foot (M86.172) Active confirmed Rx drug management (4) Problem Ulcer of toe (676282541) Ulcer of left foot with bone involvement without evidence of necrosis (L97.526) Active confirmed Problem 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) Active confirmed Vital Signs Blood pressure diastolic 70 mm Hg 02/14/2024 Height 6ft 3in in 02/14/2024 Blood pressure systolic 130 mm Hg 02/14/2024 Weight 425 lbs 02/14/2024 BMI 53.12 kg/m2 02/14/2024 Encounters Encounter Location Date Provider Diagnosis [address] [address] 12/30/2023 Becki Guevara Cellulitis of toe of left foot L03.032 ; Chronic osteomyelitis M86.60 ; Skin ulcer with necrosis of bone L98.494 and Type 1 diabetes mellitus with diabetic polyneuropathy E10.[address] [address] 01/17/2024 Beckileesa Guevara Chronic osteomyelitis M86.60 ; Cellulitis of toe of left foot L03.032 ; Skin ulcer with necrosis of bone L98.494 and Type 1 diabetes mellitus with diabetic polyneuropathy E10.[address] [address] 02/14/2024 Becki Guevara Chronic osteomyelitis M86.60 ; Cellulitis of toe of left foot L03.032 ; Skin ulcer with necrosis of bone L98.494 and Type 1 diabetes mellitus with diabetic polyneuropathy E10.[address] [address] 02/14/2024 Becki Guevara [address] [address] 02/07/2024 Becki Guevara [address] [address] 02/14/2024 Becki Guevara [address] [address] 01/03/2024 Becki Guevara Assessments Encounter Date Diagnosis (ICD Code) Assessment Notes Treatment Notes Treatment Clinical Notes Section Notes 12/30/2023 Cellulitis of toe of left foot (ICD-10 - L03.032) 12/30/2023 Chronic osteomyelitis (ICD-10 - M86.60) 01/17/2024 Cellulitis of toe of left foot (ICD-10 - L03.032) 01/17/2024 Chronic osteomyelitis (ICD-10 - M86.60) 02/14/2024 Cellulitis of toe of left foot (ICD-10 - L03.032) 02/14/2024 Chronic osteomyelitis (ICD-10 - M86.60) 02/14/2024 Skin ulcer with necrosis of bone (ICD-10 - L98.494) 01/17/2024 Skin ulcer with necrosis of bone (ICD-10 - L98.494) 12/30/2023 Skin ulcer with necrosis of bone (ICD-10 - L98.494) 12/30/2023 Type 1 diabetes mellitus with diabetic polyneuropathy (ICD-10 - E10.42) 01/17/2024 Type 1 diabetes mellitus with diabetic polyneuropathy (ICD-10 - E10.42) 02/14/2024 Type 1 diabetes mellitus with diabetic polyneuropathy (ICD-10 - E10.42) Plan Of Treatment Pending Test Test Name Order Date *CBC With Differential/Platelet 05/26/19 *CBC With Differential/Platelet 05/19/19 23 *Wound Culture 05/25/2022 *Wound Culture 12/17/2020 *Wound Culture 05/12/2022 [id number] NAIL, 6 OR MORE 05/12/2022 [id number]-Vfazkyfq Plate 09/30/2021 92193- Debride <25 sq cm 10/14/2021 67219- Debride <25 sq cm 01/07/2021 [id number] SKIN/TISSUE 05/12/2022 [id number] SKIN/TISSUE 12/17/2020 [id number] SKIN/TISSUE 05/18/2022 [id number] SKIN LESION 01/23/2021 Insurance Providers Payer Name Payer Address Payer Phone Subscriber Number Group Number Insured Name Patient Relationship to Insured Coverage Start Date Coverage End Date Jose M Sood [id number] TARAH Mercado [id number] Fredrick Stafford Spouse - patient is the spouse of the insured Medical (General) History Medical History History ICD Code Anxiety Diabetes type 1 High Blood Pressure Surgical History Surgery Date(Month/Year) Tibial Plateau Repair ( complications se psis) 01/15/2020 Infection Repair 02/10/2020 Hospitalization History Reason Date(Month/Year) [facility]- bacterial pneumonia 12/20/23
--- OUTSIDE RECORDS SUMMARY | 2024-03-07 17:29 | XMS_ITS | Clinical Summary ---
Author Organization [facility] Address [address] [address] Care Team Providers Care Bottom Stainer Name Role Phone Eliezer Mendoza MD Primary Care Provider + Social History Tobacco Use Types Packs/Day Years Used Date Smoking Tobacco: Never Assessed Sex and Gender Information Value Date Recorded Sex Assigned at Not on file Legal Sex Male 10:52 AM EST Gender Identity Not on file Sexual Orientation Not on file Plan of Treatment Health Maintenance Due Date Last Done Comments Hepatitis B Vaccine (1 of 3 - 19+ 3-dose series) 01/14/1996 Influenza Vaccine (#1) 2023 Pneumococcal Vaccine: Pediat rics (0 to 5 Years) and At-Risk Patients (6 to 64 Years) Aged Out No longer eligi ble based on patient's age to complete this topic Insurance [employer] OPEN ACCESS ([id number]) [place] [id number] Care Teams Bottom Stainer Relationship Specialty Start Date End Date Eliezer Mendoza MD [address] [place] [address] PCP - General Family Medicine 03/13/20
--- OUTSIDE RECORDS SUMMARY | 2024-03-07 17:29 | XMS_ITS ---
Author Organization [facility] Address [address] [place] [address] Care Team Providers Care Crochet Beader Name Role Phone Craig SANCHEZ, [place] Primary Care Provider Unava Becki Lainez Unavailable [phone] Allergies No Known Allergies REASON FOR VISIT Pcp-12/31, Skin problem(s) Medications Medication SIG (Take, Route, Frequency, Duration) Notes Start Date End Date Status Simvastatin 20 MG 1 tablet in the even ing Orally Once a day Active Extra Depth Orthopedic Shoes (1 Pair) with Customized Heat Molded Multidensity Innersoles (3 Pair) as directed Dx: IDDM/Polyneuropathy (E10.42), Hammertoe Foot Deformity (M20.41,M20.42), Preulcerative Skin Lesion(s) (L85.1) 01/07/2021 Active Ciprofloxacin HCl 500 MG 1 tablet Orally every 12 hrs for 10 days 12/30/2023 Active Lisinopril Active HumaLOG Active Escitalopram Oxalate 5 MG 1 tablet Orally Once a day Active Cephalexin 500 MG 1 capsule Orally Fou r times a day for 10 days 12/17/2020 Not-Taki ng Mounjaro Active Bactrim DS 800-160 MG 1 tablet Orally Tw ice a day for 10 days 12/23/2020 Not-Taking Carvedilol 3.125 MG 1 tablet with food Orally Active Cephalexin 500 MG 1 capsule Orally twi ce a day for 10 days 09/30/2021 Not-Taking Bactrim DS 800-160 MG 1 tablet Orally Tw ice a day for 10 days Not-Taking Social History Tobacco Use: Social History Observation [...] (Standard) Question Answer Notes Tobacco use: Nonsmoker Vital Signs Height 6ft 3in in 02/14/2024 Weight 425 lbs 02/14/2024 BMI 53.12 kg/m2 02/14/2024 Blood pressure systolic 130 mm Hg 02/13/19 25 Blood pressure diastolic 70 mm Hg 025 Encounters Encounter Location Date Provider Diagnosis [facility] [address] [address] 02/14/2024 Becki Guevara Chronic osteomyelitis M86.60 ; Cellulitis of toe of left foot L03.032 ; Skin ulcer with necrosis of bone L98.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 and Type 1 diabetes mellitus with diabetic polyneuropathy E10.42 Assessments Encounter Date Diagnosis (ICD Code) Assessment Notes Treatment Notes Treatment Clinical Notes Section Notes 02/14/2024 Chronic osteomyelitis (ICD-10 - M86.60) 02/14/2024 Cellulitis of toe of left foot (ICD-10 - L03.032) 02/14/2024 Skin ulcer with necrosis of bone (ICD-10 - L98.494) 02/14/2024 Type 1 diabetes mellitus with diabetic polyneuropathy (ICD-10 - E10.42) Plan Of Treatment Next Appt Details Follow Up: 1 Week, Reason: Procedure Notes * Category Sub-Category Detail Notes Debride skin and subQ Open wound Open wound selective debridement of devitalized necrotic soft tissue, fibrin, epidermis, dermis, thru skin and subcutaneous fat tissue, first 20 sq cm or less, using sharp dissection with sterile #15 blade, and/or tissue nippers. ANESTHESIA- was not required due to NEUROPATHY, Sterile antibiotic dressing applied, WOUND CARE: The patient was instructed on importance of proper wound care consisting of pressure reduction, maintainance of clean moist wound environment, and regular debridement of devitilized tissue, The patient is to cleanse the wound with warm soapy water/peroxide/saline or betadine BID based on product availability , The patient is to apply Antibiotic Oint. to the wound and cover with a DSD , The patient was instructed to change dressings according to orders daily or PRN saturation/leaks , The patient was instructed to monitor and report any signs or symptoms of infection or any untoward reactions (62617) , LEFT Progress Notes * Evelia LOUISOB: 7 (49 yo M)Acc No.[id number]:02/14/2024 Progress Notes Patient:?Ryan LOUIS Provider:?Becki Guevara DPM :1975???Age:49 Y???Sex:Male Sascha e:02/14/2024 Address:[address] [place] [address] Pcp:Rito Srinivasan MD Subjective: * Chief Complaints: * ???Pcp-12/31Skin problem(s) * HPI: ???Skin problems:?Nature:?redness, swelling , tender, open sore.?Location:?2nd digit, left foot.?Course:?worse.?Treatments:?Local care consisting of daily distilled water wound cleanse, topical antibiotic as recommended, application of sterile dressing, offloading/pressure reduction via rest, and surgical debridement, Ciprofloxacin prescription, states adherence to recommended treatment application.?Misc:?Patient relates new blister to lateral aspect of the second digit from a new pair of shoes starting last Tuesday. He states his toe blew up and was very swollen/ painful this weekend however has subsided somewhat. He saw Infectious disease last week and they have continued him on the Ciprofloxacin..? * ROS:?General/Constitutional:?Nausea?denies.?Vomiting?denies.?Hunger Thirst?denies.?Loss appetite?denies.?Chills?denies.?Fatigue?denies.?Fever?denies.?Night Sweats?denies.?Unexplained weight loss?denies.?Unexplained weight gain?denies.?HEENTM:?Dentures?denies.?Dizziness?denies.?Glasses/contacts?admits.?Retinopathy?den ies.?Blurred/double vision?denies.?TMJ?denies.?Discharge/drainage?denies.?Implants?denies.?Sore throat?denies.?Dental implants?denies.?Hard of hearing ?denies.?Difficulty chewing/swallowing/speaking?denies.?Nose bleeds?denies.?Sore mouth?denies.?Respiratory:?On O xygen?denies.?Pneumonia/pleurisy?denies.?Bronchitis?denies.?Emphysema?denies.?Co ughing?denies.?Cough blood?denies.?Shortness of breath?denies.?Wheezing?denies.?Cardiovascular:?Pacemaker?denies.?MVP?denies.?WPW?denies.?CHF?denies.?Heart attack?denies.?Septal defect?denies.?Rapid beat?denies.?Chest pain ?denies.?Atrial Fib.?denies.?Murmur/Palpitations?denies.?Gastrointestinal:?Hemorrhoids?denies.?Stomach/Abdominal pain?denies.?Dark blood stool?denies.?Irritable bowel ?denies.?Constipation?denies.?Diarrhea?denies.?Hematology:?Swelling?denies.?Clots?denies.?Varicose Veins?denies.?Bruising?denies.?Bleeding problem?denies.?Genitourinary:?Blood urine?denies.?Frequent/Painfu/urination/bladder control?denies.?Kidney stones?denies.?Infection (UTI)?denies.?Nephropathy?denies.?sex trans dis (STD)?denies.?Prostate?denies.?Musculoskeletal:?Hammertoes?denies.?Bunions?denies.?Back Pain?denies.?Muscle Cramps/ Resting?denies.?Muscle cramps / walking?denies.?Generalized aches and pains?denies.?Weakness?denies.?Integ.:?Raymond?denies.?Scars?denies.?Corns/calluses?denies.?Ingrown nails?denies.?Painful nails?denies.?Open Sores?denies.?Rashes?denies.?Neurologic:?Difficulty sleeping?denies.?Brain disorder?denies.?Numbness?denies.?Balance t rouble?denies.?Confusion?denies.?Fainting/blackouts?denies.?Tingling?denies.?Dimitri mors?denies.? * Medical History:? * Surgical History:?Tibial Kathy teau Repair ( complications sepsis) 01/15/2020Infection Repair 02/10/2020 * Hospitalization/Major Diagno stic Procedure:?[facility]- bacterial pneumonia 12/20/23 * Family History:?Mother: jose luis alvarez?Father: alive.? * Social History:?Tobacco Use:?Tobacco use other than smoking?Are you an other tobacco user??No ?Tobacco Control (Standard)?Tobacco use:?Nonsmoker ???Drugs/Alcohol:?Drugs?Have you used drugs other than those for medical reasons in the past 12 months??No ?Alcohol Screen?Did you have a drink containing alcohol in the past year??Yes ?How often did you have a drink containing alcohol in the past year??Monthly or less (1 point) ?How many drinks did you have on a typical day when you were drinking in the past year??1 or 2 drinks (0 point) ?How often did you have 6 or more drinks on one occasion in the past year??Never (0 point) ?Points?1 ?Interpretation?Negative ???Miscellaneous:?Caffeine: yes, frequency:, 1-2 cups per day. ?Exercise: no. ?Marital status: . 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 * Medications:?TakingMounjaro Carvedilol 3.125 MG Tablet 1 tablet with food Orally Escitalopram Oxalate 5 MG Tablet 1 tablet Orally Once a day Simvastatin 20 MG Tablet 1 tablet in the evening Orally Once a day Lisinopril HumaLOG Extra Depth Orthopedic Shoes (1 Pair) with Customized Heat Molded Multidensity Innersoles (3 Pair) as directed Dx: IDDM/Polyneuropathy (E10.42), Hammertoe Foot Deformity (M20.41,M20.42), Preulcerative Skin Lesion(s) (L85.1) Ciprofloxacin HCl 500 MG Tablet 1 tablet Orally every 12 hrs Taking Mounjaro Taking Carvedilol 3.125 MG Tablet 1 tablet with food Orally Taking Escitalopram Oxalate 5 MG Tablet 1 tablet Orally Once a day Taking Simvastatin 20 MG Tablet 1 tablet in the evening Orally Once a day Taking Lisinopril Taking HumaLOG Taking Extra Depth Orthopedic Shoes (1 Pair) with Customized Heat Molded Multidensity Innersoles (3 Pair) as directed Dx: IDDM/Polyneuropathy (E10.42), Hammertoe Foot Deformity (M20.41,M20.42), Preulcerative Skin Lesion(s) (L85.1) Taking Ciprofloxacin HCl 500 MG Tablet 1 tablet Orally every 12 hrs Not-Taking/PRNCephalexin 500 MG Capsule 1 capsule Orally twice a day Bactrim DS 800-160 MG Tablet 1 tablet Orally Twice a day Cephalexin 500 MG Capsule 1 capsule Orally Four times a day Bactrim DS 800-160 MG Tablet 1 tablet Orally Twice a day Medication List reviewed and reconciled with the patientNot-Taking/PRN Cephalexin 500 MG Capsule 1 capsule Orally twice a day Not-Taking/PRN Bactrim DS 800-160 MG Tablet 1 tablet Orally Twice a day Not-Taking/PRN Cephalexin 500 MG Capsule 1 capsule Orally Four times a day Not-Taking/PRN Bactrim DS 800-160 MG Tablet 1 tablet Orally Twice a day Medication List reviewed and reconciled with the patient * Allergies:?N.K.D.A.yes[Aller gies Verified] Objective: * Vitals:?Ht: 6ft 3in, Wt:425, BMI:53.12, Shoe size: 12.5, BP:130/70mm Hg, BS: 215, Ht-cm: 190.5 cm, Wt-k.78 kg. * ???Past Orders: ???Lab:HEMOGLOBIN A1C (GLYCO HEMOGLOBIN) (Order Date - 12/09/2023) (Collection Date & Time - 12/09/2023 09:26 AM) ? Value Reference Range ?HEMOGLOBIN A1C % (HH) 6.8 * Examination: ???General Examination: ?GENERAL APPEARANCE:?Reveals a pleasant, alert, obese well developed, well hydrated individual, who demonstrates proper attention to hygene/body habitus, and is in no acute distress.?ORIENTED:?person, place, and time.?FOOT EXAM:?Footwear Evaluation?Dermatologic: ?SKIN FINDINGS:?Skin shows sign(s) of, localized cellulitis without lymphangitis extending proximally to the level of the MPJ?second digit, Left foot.?ULCER:?Distal? and lateral?T1?, LOCATION, NOW? SIZE, 6mm X 3 mm X 2mm, BASE, granular, RIM, hyperkeratotic, UNDERMINING, none DRAINAGE, serosanguineous, moderate, NECROTIC TISSUE,absent, MALODOR,absent CALOR,absent ERYTHEMA, mild localized, blanchable. Site of previously ruptured bulla per patient is now connected to distal ulceration.?Vascular: ?DP PULSES (B):? 2/4, B/L.?PT PULSES (B):? 2/4, B/L.?CAPILLARY FILL TIME:?immediate, all digits, B/L.?TROPHIC CONDITION-TEXTURE/ELASTICITY/TURGOR/HAIR GROWTH (B):?normal, B/L.?TEMPERTURE GRADIENT (C):?normal, warm to cool, proximal to distal, B/L, B/L.?PIGMENTATION:?normal, B/L.?Neurological: ?SENSORY:?Neurological exam demonstrates reduced sharp/dull pin prick discrimination reduced light touch sensation reduced vibration sensation reduced proprioception sensation in a stocking fashion 5.07 monofilament test performed at plantar aspects of 5 varied sites per foot shows sensation plantar aspects absent at Forefoot B/L.?TINEL'S COMPRESSION:?Negative tarsal tunnel, atilio pedis, and medial calcaneal nerves.?Ophthalmology Referral: ?DIABETES EYE EXAM? Assessment: * Assessment: 1.?Cellulitis of toe of left foot - L03.032 (Primary)???Specify :Acute problem, Complicated w/ Multiple Tx Options(4), Resolved???2.?Chronic osteomyelitis - M86.60???Specify :Chronic problem, Threat to limb/life (5)???3.?Skin ulcer with necrosis of bone - L98.494???Specify :Response to treatment - Improvement???4.?Type 1 diabetes mellitus with diabetic polyneuropathy - E10.42??? Plan: * Treatment: * Procedures:?Debride skin and subQ:?Open wound?Open wound selective debridement of devitalized necrotic soft tissue, fibrin, epidermis, dermis, thru skin and subcutaneous fat tissue, first 20 sq cm or less, using sharp dissection with sterile #15 blade, and/or tissue nippers. ANESTHESIA- was not required due to NEUROPATHY, Sterile antibiotic dressing applied, WOUND CARE: The patient was instructed on importance of proper wound care consisting of pressure reduction, maintainance of clean moist wound environment, and regular debridement of devitilized tissue, The patient is to cleanse the wound with warm soapy water/peroxide/saline or betadine BID based on product availability , The patient is to apply Antibiotic Oint. to the wound and cover with a DSD , The patient was instructed to change dressings according to orders daily or PRN saturation/leaks , The patient was instructed to monitor and report any signs or symptoms of infection or any untoward reactions (98302) , LEFT.? * Procedure Codes:?04145 DEBRI DE SKIN/TISSUE * Preventive Medicine:? ??Counseling:?Consult:?Patient has another infectious disease appt tmrw 02/15/24 for now they are continuing him on Ciprofloxacin and are planning on a vascular consult- will reach out to infectious disease for his notes..? * Follow Up:?1 Week * Images: * Sign off status: Completed true * Provider:?Becki Guevara DPM Date:?0 02/14/2024 Generated for Iban sanchez/Billy/Stewart on:?03/07/2024 05:29 PM EST History and Physical Notes * HPI (History of Present Illness) Category Sub-Category Detail Notes Category Not es Skin problems Nature: redness , swelling , tender , open sore Location: 2nd digit, left foot Course: worse Treatments: Local care consistin g of daily distilled water wound cleanse, topical antibiotic as recommended, application of sterile dressing, offloading/pressure reduction via rest, and surgical debridement, Ciprofloxacin prescription, states adherence to recommended treatment application Misc: Patient relates new blister to lateral aspect of the second digit from a new pair of shoes starting last Tuesday. He states his toe blew up and was very swollen/ painful this weekend however has subsided somewhat. He saw Infectious disease last week and they have continued him on the Ciprofloxacin. Examination Category Sub-Category Detail Notes Category Not es Neurological SENSORY: Neurological exa m demonstrates reduced sharp/dull pin prick discrimination reduced light touch sensation reduced vibration sensation reduced proprioception sensation in a stocking fashion 5.07 monofilament test performed at plantar aspects of 5 varied sites per foot shows sensation plantar aspects absent at Forefoot B/L TINEL'S COMPRESSION: Negative tarsal shannan adryan, atilio pedis, and medial calcaneal nerves Dermatologic SKIN FINDINGS: Skin shows sign( s) of, localized cellulitis without lymphangitis extending proximally to the level of the MPJ second digit, Left foot ULCER: Distal and lateral T 1 , LOCATION, NOW SIZE, 6mm X 3 mm X 2mm, BASE, granular, RIM, hyperkeratotic, UNDERMINING, none DRAINAGE, serosanguineous, moderate, NECROTIC TISSUE,absent, MALODOR,absent CALOR,absent ERYTHEMA, mild localized, blanchable. Site of previously ruptured bulla per patient is now connected to distal ulceration VERRUCA: General Examination GENERAL APPEARANCE: Reveals a pleasant, alert, obese well developed, well hydrated individual, who demonstrates proper attention to hygene/body habitus, and is in no acute distress FOOT EXAM: Lower Extremity Neurological Exa m performed:: Yes ORIENTED: person, place, and t naveen Footwear Evaluation Footwear Evaluation performe d:: Yes Ophthalmology Referral DIABETES EYE EXAM Procedure Perform ed:: Yes ?Date of Exam Performed: 08/08/2023 Findings of Diabetic Eye Exam:: no retin opathy Vascular DP PULSES (B): 2/4, B/L PT PULSES (B): 2/4, B/L CAPILLARY FILL TIME: immediate, all digi ts, B/L TEMPERTURE GRADIENT (C): normal, warm to cool, proximal to distal, B/L, B/L TROPHIC CONDITION-TEXTURE/ELASTICITY/TURGOR/HAIR GROWTH (B): normal, B/L PIGMENTATION: normal, B/L
--- OUTSIDE RECORDS SUMMARY | 2024-03-07 17:29 | XMS_ITS ---
Author Organization [facility] Address [address] [place] [address] Care Team Providers Care Fish Drier Name Role Phone Craig SANCHEZ, [place] Primary Care Provider Unava ilable Becki Guevara Unavailable [phone] REASON FOR VISIT [place]ako Encounters Encounter Location Date Provider Diagnosis [facility] [address] [address] [place] [id number] 02/14/2024 Becki Guevara Plan Of Treatment No Information Progress Notes * IVANEvelia CORREAOB: 7 (49 yo M)Acc No.[id number]:02/14/2024 Patient:?Ryan LOUIS :1975???Age:49 Y???Sex:Male Address:[address] [place] [address], [id number] * true * Date:? Generated for Iban sanchez/Billy/eTransmitting on:?03/07/2024 05:29 PM EST
== END 2024-03-07 17:05 | disposition home or self-care (01) ==
PROVIDERS: PCP Internal Medicine; Visit Provider Nurse Practitioner Family
DX: Z01.818 Encounter for other preprocedural examination (principal); Z12.11 Encounter for screening for malignant neoplasm of colon; K21.9 Gastro-esophageal reflux disease without esophagitis
CPT/HCPCS: S0285

== ENCOUNTER → 2024-03-07 15:37 | Outpatient (BNVA) | payer OTHER, SELFPAY | PROVIDERS: PCP Internal Medicine; Visit Provider Nurse Practitioner Family ==

== ENCOUNTER 2024-03-09 16:38 | Outpatient (AMB) | payer OTHER, SELFPAY ==
[2024-03-09 16:39] VITALS: BP 126/80; PULSE 78; O2SAT 95; BMI 56.3
--- NOTE | 2024-03-09 16:39 | MHC.PC.OV ---
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 glucose over 250, nausea, vomiting, illness tid amoxicillin-pot clavulanate 875-125 mg 1 tab PO BID atorvastatin 40 mg PO DAILY bisacodyl (Dulcolax (bisacodyl)) 10 mg (2 x 5 mg) PO BEDTIME blood sugar diagnostic (Contour Next Test Strips) As directed 5 times a day blood-glucose meter (Contour Next Meter) As directed blood-glucose meter,continuous (Dexcom G6 Academic Registrar) As directed blood-glucose sensor (Dexcom G6 Sensor device) As directed blood-glucose sensor (Dexcom G6 Sensor device) As directed change every 10 days blood-glucose transmitter (Dexcom G6 Transmitter device) USE DIRECTED carvedilol 12.5 mg PO DAILY 90 days cholecalciferol (vitamin D3) 50 mcg PO DAILY 90 days doxycycline hyclate 100 mg PO BID escitalopram oxalate 10 mg PO DAILY 90 days glucagon 3 mg/actuation (Baqsimi) 3 mg intranasal .PRN PRN 30 days MDD 6 mg insulin glargine (Lantus U-100 Insulin) 70 units (0.7 mL) subcut DAILY PRN 30 days MDD 70 units insulin lispro infuse up to 170 units daily via insulin pump subcutaneously use as directed; lansoprazole 30 mg PO DAILY lisinopril 20 mg PO DAILY 90 days lorazepam 0.5 mg PO DAILY PRN polyethylene glycol 3350 (Miralax) 238 grams PO ONCE tirzepatide (Mounjaro) 10 mg (0.5 mL) subcut QWEEK trazodone 50 mg PO BEDTIME PRN Tobacco use date assessed: 03/09/24 Dental Screening Dental Screen Date: 03/09/24 Did you have a dental visit in the last 12 months?: No Did you have a dental problem in the last 6 months where you did not have access to dental care?: No Was dental information given to patient?: No HPI DM HPI Details Patient comes in today for his follow up visit He is currently still finishing up his antibiotics (Cipro and Erythromycin) for osteomyelitis of his left middle toe - states that he has about 1 week left on his Rx and is hoping to avoid needing to have his toe amputated Recalls that he accidentally stubbed his toe a while back, which started his current problem but states that his toe was already somewhat deformed (hammertoe) before it got hurt States that he feels okay otherwise He denies any headaches or dizziness Denies any chest pains, no shortness of breath No nausea/vomiting, no abdominal pain No change in bowel habits noted He did not get any follow-up labs done prior to his appointment today - states that he had a lot of labs done when he was admitted at [facility] back in December 2023 and did not think that he had to do any other labs recently [facility] Medical History Diabetic foot infection Uncontrolled type 1 diabetes mellitus GERD without esophagitis Diabetic retinopathy Morbid obesity with BMI of 50.0-59.9, adult Anxiety Insomnia Benign essential hypertension Pure hypercholesterolemia Diabetes mellitus Surgical History H/O knee surgery Family History Mother High blood pressure Father High blood pressure High cholesterol Social History Housing: Apartment Alcohol intake: current Alcohol intake frequency: holidays/special occasions only Patient Tobacco Use Status: Former Tobacco user e-Cigarette/Vaping Use: Never Used Second Hand Smoke Exposure: Yes service: No Current occupational status: employed 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 1. Little interest or pleasure in doing things: not at all 2. Feeling down, depressed, or hopeless: not at all 3. Trouble falling or staying asleep, or sleeping too much: not at all 4. Feeling tired or having little energy: not at all 5. Poor appetite or overeating: not at all 6. Feeling bad about yourself - or that you are a failure or have let yourself or your family down: not at all 7. Trouble concentrating on things, such as reading the newspaper or watching television: not at all 8. Moving or speaking so slowly that other people could have noticed. Or the opposite - being so fidgety or restless that you have been moving around a lot more than usual: not at all 9. Thoughts that you would be better off or of hurting yourself in some way: not at all Total score: 0 Depression Screening Interpretation: Negative Depression Screening Done: Yes 61367 - PHQ-9 Billing: Yes Source: Developed by Drs. Sander Foy, Lyndsey Sears, Ugo Doty and colleagues, with an educational howard from [employer]. Thrive Questionnaire Date Thrive assessed: 03/09/24 I am a: Patient What is your living situation today?: I have a steady place to live Within the past 12 months, did the food you bought not last and you didn't have the money to get more?: Never true Within the past 12 months, did you worry whether your food would run out before you got money to buy more?: Never true Do you have trouble paying for medicines?: No Do you have trouble getting transportation to medical appointments?: No Do you have trouble paying your heating and electricity bill?: No Do you have trouble taking care of your child, family member or friend?: No Do you have trouble with day-to-day activities such as bathing, preparing meals, shopping, managing finances, etc.?: No Are you currently unemployed and looking for a job?: No Are you interested in more education?: No Please select the resources that you would like help with: None Currently or been in a relationship where the following occur: No concerns reported THRIVE Score: 0 AUDIT C Alcohol Use Questionnaire (AUDIT-C) 1. How often do you have a drink containing alcohol?: Never 2. How many drinks containing alcohol do you have on a typical day when you are drinking?: 1 or 2 3. How often do you have six or more drinks on one occasion?: Never Total Score: 0 Score Reviewed/Action Taken: Yes PAYAL-7 AMB Questionnaire PAYAL-7 Date PAYAL - 7 assessed: 03/09/24 Feeling nervous, anxious, or on edge: 0 = Not at all Not being able to stop or control worryin = Not at all Worrying too much about different things: 0 = Not at all Trouble relaxin = Not at all Being so restless that it is hard to sit still: 0 = Not at all Becoming easily annoyed or irritable: 0 = Not at all Feeling afraid as if something awful might happen: 0 = Not at all Total PAYAL-7 score (0-4 normal; 5-9 mild; 10-14 moderate; 15-21 severe): 0 Source: Developed by Drs. Sander Foy, Lyndsey Sears, Ugo Doty and colleagues, with an educational howard from [employer]. PAYAL-7 Assessment Billing PAYAL-7 Assessment Tool: PAYAL-7 Assessment 42383 Review of Systems Const Denies chills, Denies fatigue, Denies fever(s) and Denies headache(s) ENT Denies dysphagia, Denies dizziness, Denies otalgia, Denies headache(s), Denies neck pain, Denies odynophagia and Denies sore throat Card Denies chest pain, Denies irregular heart rhythm, Denies palpitations and Denies dyspnea Resp Denies chest congestion, Denies cough and Denies dyspnea GI Denies abdominal pain, Denies constipation, Denies dysphagia, Denies heartburn, Reports loose stools (on and off), Denies nausea, Denies odynophagia and Denies vomiting Denies hematuria, Denies dysuria, Denies urinary frequency and Denies urinary urgency Musc Denies back pain, Denies arthralgias and Denies neck pain Skin/Breast Denies rash Neuro Denies dizziness, Denies headache(s) and Denies paresthesias Endo Denies fatigue and Denies palpitations Physical exam (Primary Care) Vital Signs: Last Vital Signs Pulse 78 03/09/24 16:39 BP 126/80 03/09/24 16:39 Pulse Ox 95 03/09/24 16:39 Oxygen Delivery Method Room Air 03/09/24 16:39 BMI result Body Mass Index 56.3 Tobacco/Smoking Status: Tobacco use Status Tobacco use date assessed 03/09/24 03/09/24 16:44 Patient Tobacco Use Status Former Tobacco user 03/09/24 16:44 e-Cigarette/Vaping Use Never Used 03/09/24 16:44 PHQ-9: PHQ-9 Score PHQ-9: Total score 0 03/09/24 19:15 Depression Screening Interpretation: Negative Thrive Assessment: Date of Thrive Assessment Date Thrive assessed 03/09/24 03/09/24 16:44 Currently or been in a relationship where the following occur: No concerns reported Const General: no acute distress and alert HENMT Ears: TM's normal bilaterally and EAC's normal Throat: Yes posterior oropharynx normal and Yes tonsils normal (no TP congestion) Neck Neck: Yes supple and No lymphadenopathy Thyroid: Thyroid normal Resp Auscultation: clear to auscultation bilaterally, no rales and no wheezes Cardio Rate: regular rate Rhythm: regular rhythm Heart sounds: no murmurs GI Palpation (GI): Soft to palpation and nontender Auscultation: normal bowel sounds General: Yes no CVA tenderness Back/Spine/Pelvis Back: no CVA tenderness Thoracic/Lumbar Spine: No lumbar spinal tenderness Skin Rashes: no rashes Extrem General: Yes no clubbing, cyanosis or edema Coding Level of Care Code Est Pt Level 4 (04739) Diagnoses Type 1 diabetes mellitus with hyperglycemia E10.65 Diabetes mellitus type: type 1 Diabetes mellitus complication status: with hyperglycemia Mild nonproliferative diabetic retinopathy of both 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 macular edema associated with type 1 diabetes mellitus E10.3293 Diabetes mellitus type: type 1 Diabetic retinopathy severity: with mild nonproliferative retinopathy Diabetes mellitus macular edema: without macular edema Laterality: bilateral Pure hypercholesterolemia E78.00 Benign essential hypertension I10 Bandemia D72.825 Leukocytosis type: bandemia Osteomyelitis of third toe of left foot M86.9 GERD without esophagitis K21.9 Insomnia, unspecified type G47.00 Insomnia type: unspecified Anxiety F41.9 Morbid obesity with BMI of 50.0-59.9, adult E66.01; Z68.43 Additional Codes PAYAL-7 Assessment Billing - PAYAL-7 Assessment Tool: PAYAL-7 Assessment 94543 ([id number]) PHQ-9 - 70093 - PHQ-9 Billing: Yes ([id number]) Assessment & Plan Assessment & Plan (1) Diabetes mellitus: Code(s): E11.9 - Type 2 diabetes mellitus without complications Category: Medical Qualifiers: Diabetes mellitus type: type 1 Diabetes mellitus complication status: with hyperglycemia Qualified Code(s): E10.65 - Type 1 diabetes mellitus with hyperglycemia Plan: His HgbA1c was at 7.1% a couple of weeks ago on 02/21/2024 at 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 office (it was previously at 7.8% back in September 2023) - goal is at least <7.0% Reinforced diabetic diet Continue Lantus 70 units QD, Humalog U-100 up to 170 units daily (he has an insulin pump) and Mounjaro 10 mg SQ Q week Follow up with endocrinology as scheduled (2) Diabetic retinopathy: Code(s): E11.319 - Type 2 diabetes mellitus with unspecified diabetic retinopathy without macular edema Category: Medical Qualifiers: Diabetes mellitus type: type 1 Diabetic retinopathy severity: with mild nonproliferative retinopathy Diabetes mellitus macular edema: without macular edema Laterality: bilateral Qualified Code(s): E10.3293 - Type 1 diabetes mellitus with mild nonproliferative diabetic retinopathy without macular edema, bilateral Plan: His last diabetic eye exam was done in May 2023 - he goes to Dr. Greg Dunn at [facility] in [place] Follow up with ribbon blockmaker as scheduled for his annual diabetic eye exam (3) Pure hypercholesterolemia: Code(s): E78.00 - Pure hypercholesterolemia, unspecified Category: Medical Plan: His LDL cholesterol was at 66 mg/dl when last checked in May 2023; he has not had any other follow up labs done since Reinforced low cholesterol diet Continue Atorvastatin 80 mg QD Will recheck his labs and fasting lipids in 4 months for follow up - will just have patient use his current orders (updated) for his next lab draw (4) Benign essential hypertension: Code(s): I10 - Essential (primary) hypertension Category: Medical Plan: Reinforced low sodium diet - goal is systolic BP of 120 mm or less Continue Lisinopril 20 mg QD and Carvedilol 12.5 mg BID (5) Leukocytosis (leucocytosis): Code(s): D72.829 - Elevated white blood cell count, unspecified Category: Medical Qualifiers: Leukocytosis type: bandemia Qualified Code(s): D72.825 - Bandemia Plan: Patient's CBC over the years have always shown (+) mild/low level leucocytosis (absolute neutrophilia) since 2021 He was referred to and seen by hematology last year and was advised that 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 Will continue to monitor his CBC regularly Follow up with hematology as scheduled or as needed (6) Osteomyelitis of third toe of left foot: Code(s): M86.9 - Osteomyelitis, unspecified Category: Medical Plan: Patient states that he is currently still on antibiotics (Cipro and Erythromycin) and has about a week left on his present Rx - he was previously on Doxycycline and Augmentin He is following up with infectious disease and with Wound care at [facility] and states that he has a follow up appointment with them in a few days (7) GERD without esophagitis: Code(s): K21.9 - Gastro-esophageal reflux disease without esophagitis Category: Medical Plan: Reinforced dietary restrictions Continue Lansoprazole 30 mg QD (8) Insomnia: Code(s): G47.00 - Insomnia, unspecified Category: Medical Qualifiers: Insomnia type: unspecified Qualified Code(s): G47.00 - Insomnia, unspecified Plan: Sleep hygiene reinforced Continue Trazodone 50 mg Q HS PRN (9) Anxiety: Code(s): F41.9 - Anxiety disorder, unspecified Category: Medical Plan: Continue Escitalopram 10 mg QD and Lorazepam 0.5 mg QD PRN - states that he rarely has to take his Lorazepam (mostly once a month when needed) (10) Morbid obesity with BMI of 50.0-59.9, adult: Code(s): E66.01 - Morbid (severe) obesity due to excess calories; Z68.43 - Body mass index [BMI] 50.0-59.9, adult Category: Medical Plan: Reinforced diet/exercise as tolerated/lose weight Plan Follow up in 4 months
--- OUTSIDE RECORDS SUMMARY | 2024-03-09 16:40 | XMS_ITS | Clinical Summary ---
Author Organization [facility] Facility Address [address] [address] Care Team Providers Care Roofer Gypsum Name Role Phone Eliezer Mendoza MD Primary [...] complete this topic Insurance [employer] OPEN ACCESS ([id number]) Care Teams Roofer Gypsum Relationship Specialty Start Date End Date Eliezer Mendoza MD [address] [place] [address] PCP - General Family Medicine 03/13/20
== END 2024-03-09 17:08 | disposition home or self-care (01) ==
PROVIDERS: PCP Internal Medicine; Visit Provider Internal Medicine
DX: E10.65 Type 1 diabetes mellitus with hyperglycemia (principal); E10.3293 Type 1 diabetes mellitus with mild nonproliferative diabetic retinopathy without macular edema, bilateral; M86.9 Osteomyelitis, unspecified; E66.01 Morbid (severe) obesity due to excess calories; Z68.43 Body mass index [BMI] 50.0-59.9, adult; E78.00 Pure hypercholesterolemia, unspecified; I10 Essential (primary) hypertension; D72.825 Bandemia; K21.9 Gastro-esophageal reflux disease without esophagitis; G47.00 Insomnia, unspecified; F41.9 Anxiety disorder, unspecified

== ENCOUNTER → 2024-03-09 16:38 | Outpatient (BNVA) | payer OTHER, SELFPAY | PROVIDERS: PCP Internal Medicine; Visit Provider Internal Medicine | DX: E10.65 Type 1 diabetes mellitus with hyperglycemia (principal); E10.3293 Type 1 diabetes mellitus with mild nonproliferative diabetic retinopathy without macular edema, bilateral; E78.00 Pure hypercholesterolemia, unspecified; I10 Essential (primary) hypertension; D72.825 Bandemia; M86.9 Osteomyelitis, unspecified; K21.9 Gastro-esophageal reflux disease without esophagitis; G47.00 Insomnia, unspecified; F41.9 Anxiety disorder, unspecified; E66.01 Morbid (severe) obesity due to excess calories; Z68.43 Body mass index [BMI] 50.0-59.9, adult; Z79.899 Other long term (current) drug therapy | CPT/HCPCS: 96127 ==

== ENCOUNTER 2024-06-07 08:09 | Outpatient (AMB) | payer OTHER, SELFPAY ==
--- NOTE | 2024-06-06 20:20 | A.OFFVIS_ITS ---
Vital Signs 06/07/24 08:11 Height 6 ft 2 in Weight 445 lb 5.34 oz BMI 57.2 BP 128/80 Blood Pressure Location Rt brachial Position Sitting Pulse 80 Pulse Source Pulse Oximeter Pulse Oximetry (%) 96 Oxygen Delivery Method Room Air Intake Visit Reasons: DM Intake Note: Patient presents today for a follow-up on Type 1 Diabetes Mellitus/Insulin Pump: Last Diabetic Eye exam on: 05/2024 at [facility] Last Podiatry Visit: 06/2023 Most Recent HgA1c: 7.0%, 06/07/2024 Random Glucose: 158 mg/dL, Today Integrated Logistics Programs Director Required: No Accompanied by: Self / Same As Patient Allergies No Known Drug Allergies Allergy (Unknown, Verified 06/07/24 08:20) Unknown Medication List - Last Reconciled 06/07/24 by Ariela Whyte NP acetone (urine) test (Ketone Urine Test strips) As directed p.r.n. glucose over 250, nausea, vomiting, illness tid amoxicillin-pot clavulanate 875-125 mg 1 tab PO BID atorvastatin 40 mg PO DAILY bisacodyl (Dulcolax (bisacodyl)) 10 mg (2 x 5 mg) PO BEDTIME blood sugar diagnostic (Contour Next Test Strips) As directed 5 times a day blood-glucose meter (Contour Next Meter) As directed blood-glucose sensor (Dexcom G6 Sensor device) As directed blood-glucose sensor (Shelf.com G6 Sensor device) As directed change every 10 days blood-glucose transmitter (Shelf.com G6 Transmitter device) USE DIRECTED blood-glucose,inside sales account representative,cont (Dexcom G6 Lining Baster) As directed carvedilol 12.5 mg PO DAILY 90 days cholecalciferol (vitamin D3) 50 mcg PO DAILY 90 days doxycycline hyclate 100 mg PO BID escitalopram oxalate 10 mg PO DAILY 90 days glucagon 3 mg/actuation (Baqsimi) 3 mg intranasal .PRN PRN 30 days MDD 6 mg insulin glargine (Lantus U-100 Insulin) 70 units (0.7 mL) subcut DAILY PRN 30 days MDD 70 units insulin lispro infuse up to 170 units daily via insulin pump subcutaneously use as directed; lansoprazole 30 mg PO DAILY lisinopril 20 mg PO DAILY 90 days lorazepam 0.5 mg PO DAILY PRN polyethylene glycol 3350 (Miralax) 238 grams PO ONCE tirzepatide (Mounjaro) 10 mg (0.5 mL) subcut QWEEK HPI Comments Details: 49 YO M seen in follow up for T2DM on a Tandem insulin pump. He was last seen 02/21/24..Has been on an insulin pump since 2009. A1C 06/06/24 7% A1C 02/21/24 7.1%, 10/05/23 A1c 7.8% which was up from his previous of 6.8 %. He is currently being treated for osteomyelitis of the 3rd left toe with doxy/erythromycin.. He is being followed by vasc, I and D and podiatry. Initially diagnosed with DM as a teenager when he presented with hyperglycemia. Anti-GAD65 antibodies were negative possibly suggesting type 2 diabetes. However, C-peptide with glucose in the high 100s was low suggesting insulin deficiency. Currently on Mounjaro 10 mg weekly. Has low vitamin d on replacement D3 daily. Reports low sugars occasionally . Treats lows with eats carbohydrates . Checks sugar after to ensure it is rising 30 min . No Family history of autoimmunity Has eyes checked yearly, last appt 06/05/2023, 06/01 No retinopathy: report reviewed. reports Goes to Dr. Greg Dunn at [facility] in [place]. Being watched for cataract He has scheduled for 06/2025 Has neuropathy, sees podiatry, I and D and vascular coming up. Right foot 3rd toe: saw I & D and spoke with [facility] has f/u appt scheduled. On antibiotics doxy/amox infection improving Hospitalized at [facility] for 2 days. may need partial amp of toe small amount of osteo at the tip of his toe Denies nephropathy, on CHRISTINE-inhibitor 05/2023 eGFR>60 05/17/24 microalbumin 31.0 Has HLD, on statin. Last LDL 74 measured on 05/18/23. Denies history of CAD. Denies CP, some mild HERNANDEZ if he is rushing around. Has f/u with PCP in June and will discuss with him. Has CPAP for sleep apnea. Is compliant unless he falls asleep watching TV. Had diabetes education on an ongoing basis Diet/Carb counting: Follows lower carb diet may not be entering all carbs and often waits to enter carbs 5-10 minutes after meal starts especially if he is in court. 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 Denies prior severe episodes of hypoglycemia requiring help or hospitalization. wound L middle toe infection followed by wound clinic and infectious DX Fibrosis-4 (Fib-4) Index for liver fibrosis (calculated on most recent lab work 06/30) 0.74 points Advanced fibrosis [ excluded} Approximate Fibrosis stage Jesse 0-1 *Use with caution in patients <35 or >65 years old, as the score has been shown to be less reliable in these patients. Dexcom average glucose: [173 I ] 14 day continuous glucose monitor report reviewed Glucose Managment indicator 7.4 % Days with CGM data 100 % TIme in ranges: 4 % very high (above 250) 35 % high ?(181-250) 61 % in range ?(70-180] 0.2 % low (69-55) 0 % ?very low (below 54) Previous 2 weeks time in range was 70% Interpretation: Having some postprandial increases related to not entering in carbs Basal rate(s) (units/hour) : 12 AM to 6:30 AM 4.8 units / hr 6:30 AM to 3 PM 5.0 units / hr 3 PM to 12 AM 4.8units / hr 10 PM to 12 AM 4.2 units / hr Bolus setting Insulin Carbohydrate Ratio (s) 12 AM to 12 AM? 1:4.2 3 PM to 12 AM 1:4 Correction Factor / Sensitivity Factor 12 AM to 06:30am? 1:15 06:30am to 15:00pm 1: 10 15:00 PM t0 12:00AM 1:10 Active Insulin Time:? 5 hours Target(s): Control IQ 12 AM to 12 AM?110? mg/dL [facility] Medical History Diabetic foot infection Uncontrolled type 1 diabetes mellitus GERD without esophagitis Diabetic retinopathy Morbid obesity with BMI of 50.0-59.9, adult Anxiety Insomnia Benign essential hypertension Pure hypercholesterolemia Diabetes mellitus Surgical History H/O knee surgery Family History Mother High blood pressure Father High blood pressure High cholesterol Social History Housing: Apartment Alcohol intake: current Alcohol intake frequency: holidays/special occasions only Patient Tobacco Use Status: Former Tobacco user e-Cigarette/Vaping Use: Never Used Second Hand Smoke Exposure: Yes service: No Current occupational status: employed 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 Absence of acromegalic features. Neck exam reveals nl size thyroid about 15 gms. No thyroid nodules palpable. No carotid bruits present. Heart S1 S2, Reg R/R. No M/R G. Skin exam reveals absence of vitiligo or acanthosis nigricans. minimal edema Which Visual exam of foot performed. No ulcerations or open lesions. No inter digit maceration or fissuring. limited space between toes. No onychomycosis, + callouses great toe Sensation intact to monofilament exam. Vibratory sensation is normal with 128 Hz tuning fork. pulse positive Results AMB Hemoglobin A1c AMB Hemoglobin A1c 7.0 % Last Edit by RADHA Aquino on 06/07/24 08:42 Results Reviewed Results Reviewed: Laboratory Last Values Glucose (Clinic) 158 mg/dL (60-115) H 06/07/24 08:21 Assessment & Plan Assessment & Plan (1) Diabetes mellitus: Comment: w/insulin pump Code(s): E11.9 - Type 2 diabetes mellitus without complications Category: Medical Qualifiers: Diabetes mellitus complication status: with hyperglycemia Diabetes mellitus type: type 1 Qualified Code(s): E10.65 - Type 1 diabetes mellitus with hyperglycemia Plan: 49-year-old diabetic with nephropathy and recent osteomyelitis on an insulin pump. A1C 06/06/24 7%. He was encouraged to restart his vitamin-D and to use CPAP nightly. He has close follow up with vascular, Podiatry and I and D for resolving osteomyelitis. The patient had an opportunity to ask questions regarding treatment plan. The patient expressed understanding and agreement with the above treatment plan. The patient is aware they should contact our office by phone for worsening glucose readings or for any low blood sugars which may warrant a change in diabetes medication. Compliance is encouraged with medications and any followup testing/consults which may have been ordered. (2) Morbid obesity with BMI of 50.0-59.9, adult: Code(s): E66.01 - Morbid (severe) obesity due to excess calories; Z68.43 - Body mass i ndex [BMI] 50.0-59.9, adult Category: Medical Plan: Mounjaro was increased to 12.5 mg weekly. He was cautioned to watch for side effects in particular constipation to increase water consumption and fiber. He will see the Winsome Peters RD in follow up. Orders: Orders AMB Hemoglobin A1c Today E10.65 - Type 1 diabetes mellitus with hyperglycemia Medications: Changed From tirzepatide (Mounjaro) 10 mg (0.5 mL) subcut QWEEK 2 mL 7RF To tirzepatide (Mounjaro) 12.5 mg (0.625 mL) subcut QWEEK 28 days 2.5 mL 7RF Refilled blood-glucose transmitter (Dexcom G6 Transmitter device) USE DIRECTED 1 ea 4RF E10.65 - Type 1 diabetes mellitus with hyperglycemia blood-glucose sensor (Dexcom G6 Sensor device) As directed 9 ea 3RF tirzepatide (Mounjaro) 12.5 mg (0.625 mL) subcut QWEEK 28 days 2.5 mL 7RF cholecalciferol (vitamin D3) 50 mcg PO DAILY 90 days 90 caps 3RF E55.9 - Vitamin D deficiency, unspecified blood-glucose sensor (Dexcom G6 Sensor device) As directed 9 ea 3RF cholecalciferol (vitamin D3) 50 mcg PO DAILY 90 days 90 caps 3RF E55.9 - Vitamin D deficiency, unspecified Patient Instructions: Check your feet daily looking for any signs of infection, drainage, redness, ulceration and seek medical attention if this occurs. Break in shoes gradually and do not wear open-toed shoes or walk stocking footed or barefooted. Symptoms of DKA (diabetic ketoacidosis): early: frequent urination, dry mouth, fatigue, feeling ill, severe symptoms: ketones in the urine, abdominal pain, nausea, vomiting and weakness. It is important to hydrate with sugar free liquids every 15-30 minutes and bring the sugars down to normal levels. If you are moderate or severe with ketones or unable to bring glucose to less than 200, go to the emergency room. DKA handout given. Troubleshooting after starting new pod or inserting new insulin set: Occlusion, adhesive tape sensitivity, redness Check BG 2 hours after site change Safety information: Importance of a backup plan, for manual injections, proper prescriptions and emergency supplies ketone strips, and rules for testing for ketones Coding Level of Care Code Est Pt Level 4 (64258) Diagnoses Type 1 diabetes mellitus with hyperglycemia E10.65 Diabetes mellitus complication status: with hyperglycemia Diabetes mellitus type: type 1 Morbid obesity with BMI of 50.0-59.9, adult E66.01; Z68.43 Time Spent (min) 30 Comment Reviewing labs/provider notes, glucose sensor/pump reports, face to face, chart doc
[2024-06-07 08:11] VITALS: BP 128/80; PULSE 80; O2SAT 96; BMI 57.2
--- OUTSIDE RECORDS SUMMARY | 2024-06-07 08:21 | XMS_ITS | Continuity of Care Document ---
Author Organization [facility] [place] Address [address] [place] [address] [place] [phone] Phone Care Team Providers Care Food And Beverage Analyst Name Role Phone Mick SANCHEZ, Sanjuana Unavailable Unavailabl e Advance Directives Directive Yes / No Effective Date File Name No Information Encounters Encounter Description Practice Location Reason(s) For Visit Diagnoses Date Provider Providers Copied on Encounter [facility] [facility], [address] [place] [address], [place], [place], [id number], tel:[phone] [facility] No Information Mick Wei. [address] [place] [address], [place], [place], [id number], . tel:[phone] Referring Provider: Sanjuana Barton, [address] [place] [address], [address] . tel:[phone] Family History Family Member Type Diagnosis Age At Onset No Information Payers Payer name Insurance type Covered constitution party ID Authoriza tion(s) No Information Social History [...]
--- OUTSIDE RECORDS SUMMARY | 2024-06-07 08:21 | XMS_ITS ---
[facility] Address [address] [address] Care Team Providers Care Manager Heart Failure Name Role Phone Craig SANCHEZ, [place] Primary Care Provider Unava Becki Lainez Unavailable [phone] Allergies No Known Allergies REASON FOR VISIT [...] 025 Encounters Encounter Location Date Provider Diagnosis [facility] [address] [address] 02/14/2024 Becki Guevara Chronic osteomyelitis M86.60 ; [...] symptoms of infection or any untoward reactions (52911) , LEFT Progress Notes * Evelia LOUISOB: 7 (49 yo M)Acc No.[id number]:02/14/2024 Progress Notes Patient:?Ryan LOUIS Provider:?Becki Guevara DPM :1975???Age:49 Y???Sex:Male Sascha e:02/14/2024 Address:[address] [place] [address] Pcp:Rito Srinivasan MD Subjective: * Chief Complaints: [...] day. ?Exercise: no. ?Marital status: . 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 * Medications:?TakingMounjaro Carvedilol 3.125 MG [...] symptoms of infection or any untoward reactions (26[address]) , LEFT.? * Procedure Codes:?43437 DEBRI DE SKIN/TISSUE * Preventive Medicine:? ??Counseling:?Consult:?Patient has another infectious disease appt tmrw 02/15/24 for now they are continuing him on Ciprofloxacin and are planning on a vascular consult- will reach out to infectious disease for his notes..? * Follow Up:?1 Week * Images: * Sign off status: Completed true * Provider:?Becki Guevara DPM Date:?0 02/14/2024 Generated for Iban sanchez/Billy/Stewart on:?06/07/2024 08:21 AM EDT History and Physical Notes * HPI [...]
--- OUTSIDE RECORDS SUMMARY | 2024-06-07 08:21 | XMS_ITS | Clinical Summary ---
Author Organization [facility] Facility Address [address] [address] Care Team Providers Care Radiotelegrapher Name Role Phone Eliezer Mendoza MD Primary [...] complete this topic Insurance [employer] Open Access ([id number]) Care Teams Radiotelegrapher Relationship Specialty Start Date End Date Eliezer Mendoza MD [address] [place] [address] PCP - General Family Medicine 03/13/20
--- OUTSIDE RECORDS SUMMARY | 2024-06-07 08:21 | XMS_ITS | Patient Health Record ---
Author Organization [facility] Address [address] [place] [address] Care Team Providers Care Coal Pulverizer Operator Name Role Phone Craig SANCHEZ, Rito Primary Care Provider Unava anjanairaida Viv Guevaraine Unavailable [phone] Allergies No Known Allergies Results Component Value [...] Problem Acquired hammer toe of right foot (0481847581547514) Other hammer toe(s) (acquired), right foot (M20.41) Active confirmed Problem Acquired hammer toe of left foot (1685200067553936) Other hammer toe(s) (acquired), left foot (M20.42) Active confirmed Problem Ulcer of toe (786762283) Non-pressure chronic ulcer of other part of left foot limited to breakdown of skin (L97.521) Active confirmed Problem Acquired hammer toe of left foot (1710831128165526) Other hammer toe(s) (acquired), left foot (M20.42) Active confirmed Problem Polyneuropathy due to diabetes mellitus type I (602545052) Type 1 diabetes mellitus with diabetic polyneuropathy (E10.42) Active confirmed Problem 971427695 Hammer toe of left foot (M20.42) Active confirmed Problem 5851614406602642 Other acute osteomyelitis of left foot (M86.172) Active confirmed Rx drug management (4) Problem Ulcer of toe (361399391) Ulcer of left foot with bone involvement without evidence of necrosis (L97.526) Active confirmed Problem 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) Active confirmed Vital Signs Blood pressure diastolic 70 mm Hg 02/14/2024 Height 6ft 3in in 02/14/2024 Blood pressure systolic 130 mm Hg 02/14/2024 Weight 425 lbs 02/14/2024 BMI 53.12 kg/m2 02/14/2024 Encounters Encounter Location Date Provider Diagnosis [address] [address] 12/30/2023 Becki Guevara Cellulitis of toe of left foot L03.032 ; Chronic osteomyelitis M86.60 ; Skin ulcer with necrosis of bone L98.494 and Type 1 diabetes mellitus with diabetic polyneuropathy E10.[address] [address] 01/17/2024 Beckileesa Guevara Chronic osteomyelitis M86.60 ; Cellulitis of toe of left foot L03.032 ; Skin ulcer with necrosis of bone L98.494 and Type 1 diabetes mellitus with diabetic polyneuropathy E10.[address] [address] 02/14/2024 Beckileesa Guevara Chronic osteomyelitis M86.60 ; Cellulitis of toe of left foot L03.032 ; Skin ulcer with necrosis of bone L98.494 and Type 1 diabetes mellitus with diabetic polyneuropathy E10.[address] [address] 02/07/2024 Becki Ismael [address] [address] 02/14/2024 Becki Guevara [address] [address] 02/14/2024 Becki Guevara [address] [address] 01/03/2024 Becki Guevara Assessments Encounter Date Diagnosis [...] 05/25/2022 *Wound Culture 12/17/2020 *Wound Culture 05/12/2022 66640-IHSXXVJ NAIL, 6 OR MORE 05/12/2022 91919-Ktrttcxa Plate 09/30/2021 39004- Debride <25 sq cm 10/14/2021 54268- Debride <25 sq cm 01/07/2021 81358-NHBQZXB SKIN/TISSUE 05/12/2022 55604-SHGNFVW SKIN/TISSUE 12/17/2020 15306-KWWNEUN SKIN/TISSUE 05/18/2022 77791-HJIL SKIN LESION 01/23/2021 Insurance Providers Payer Name Payer Address Payer Phone Subscriber Number Group Number Insured Name Patient Relationship to Insured Coverage Start Date Coverage End Date Jose M Sood [id number] TARAH Mercado [phone] [id number] Fredrick Stafford Spouse - patient is the spouse of the insured Medical (General) History Medical History History ICD Code Anxiety Diabetes type 1 High Blood Pressure Surgical History Surgery Date(Month/Year) Tibial Plateau Repair ( complications se psis) 01/15/2020 Infection Repair 02/10/2020 Hospitalization History Reason Date(Month/Year) [facility]- bacterial pneumonia 12/20/23
--- OUTSIDE RECORDS SUMMARY | 2024-06-07 08:21 | XMS_ITS ---
Author Organization [facility] Address [address] [place] [address] Care Team Providers Care Vp Revenue Cycle Name Role Phone Craig SANCHEZ, [place] Primary Care Provider Unava ilable Becki Guevara Unavailable [phone] REASON FOR VISIT Inf Disease/Vasc Encounters Encounter Location Date Provider Diagnosis [facility] [address] [place] [address] 02/14/2024 Becki Guevara Plan Of Treatment No Information Progress Notes * IVANEvelia CORREAOB: 7 (49 yo M)Acc No.[id number]:02/14/2024 Patient:?Ryan LOUIS :1975???Age:49 Y???Sex:Male Address:[address] [place] [address], [address] * true * Date:? Generated for Printi laura/Billy/eTransmitting on:?06/07/2024 08:20 AM EDT
--- OUTSIDE RECORDS SUMMARY | 2024-06-07 08:21 | XMS_ITS ---
Author Organization [facility] Address [address] [place] [place] [address] Care Team Providers Care Field Attendant Name Role Phone Craig SANCHEZ, [place] Primary Care Provider Unava ilable Becki Guevara Unavailable [phone] REASON FOR VISIT [place] Encounters Encounter Location Date Provider Diagnosis [facility] [address] [facility] [address] [place] [address] 02/14/2024 Becki Guevara Plan Of Treatment No Information Progress Notes * IVANEvelia CORREAOB: 7 (49 yo M)Acc No.[id number]:02/14/2024 Patient:?Ryan LOUIS :1975???Age:49 Y???Sex:Male Address:[address] [place] [address], [address] * true * Date:? Generated for Sarahi laura/Billy/eTransmitting on:?06/07/2024 08:21 AM EDT
[2024-06-07 08:25] LABS: Glucose, Whole Blood 158 mg/dL (60-115)
== END 2024-06-07 08:45 | disposition home or self-care (01) ==
LOC: HO.ENCR 08:09
PROVIDERS: PCP Internal Medicine; Visit Provider Nurse Practitioner Adult Health
DX: E10.65 Type 1 diabetes mellitus with hyperglycemia (principal); E66.01 Morbid (severe) obesity due to excess calories; Z68.43 Body mass index [BMI] 50.0-59.9, adult
CPT/HCPCS: 99214

== ENCOUNTER → 2024-06-07 08:09 | Outpatient (BNVA) | payer OTHER, SELFPAY | PROVIDERS: PCP Internal Medicine; Visit Provider Nurse Practitioner Adult Health | DX: E10.65 Type 1 diabetes mellitus with hyperglycemia (principal); E66.01 Morbid (severe) obesity due to excess calories; E55.9 Vitamin D deficiency, unspecified; Z96.41 Presence of insulin pump (external) (internal); Z79.4 Long term (current) use of insulin; Z68.43 Body mass index [BMI] 50.0-59.9, adult; Z79.899 Other long term (current) drug therapy | CPT/HCPCS: 82947; 83036 ==

== ENCOUNTER 2024-07-06 16:08 | Outpatient (AMB) | payer OTHER, SELFPAY ==
--- OUTSIDE RECORDS SUMMARY | 2024-07-06 16:10 | XMS_ITS | Continuity of Care Document ---
Author Organization [facility] [place] Address [address] [place] [address] [place] [phone] Phone Care Team Providers Care Environmental Department Manager Name Role Phone Mick SANCHEZ, Sanjuana Unavailable Unavailabl e Advance Directives Directive Yes / No Effective Date File Name No Information Encounters Encounter Description Practice Location Reason(s) For Visit Diagnoses Date Provider Providers Copied on [facility]counter [facility] [place], [address] [place] [address], [place], [place], [id number], tel:[phone] [facility] No Information Mick Wei. [address] [place] [address], [place], [place], [id number], . tel:[phone] Referring Provider: Sanjuana Barton, [address] [place] [address], [address] . tel:[phone] Family History Family Member Type Diagnosis Age At Onset No Information Payers Payer name Insurance type Covered green party ID Authoriza tion(s) No Information Social [...]
[2024-07-06 16:17] VITALS: BP 126/82; PULSE 76; O2SAT 98; BMI 57.5
--- NOTE | 2024-07-06 16:17 | MHC.PC.OV ---
Vital Signs 07/06/24 16:17 Height 6 ft 2 in Weight 447 lb 8.614 oz BMI 57.5 BP 126/82 Blood Pressure Location Lt brachial Position Sitting Pulse 76 Pulse Source Pulse Oximeter Pulse Oximetry (%) 98 Oxygen Delivery Method Room Air Intake Visit Reasons: 4 MONTH FOLLOW UP Nurse Intern Required: No Accompanied by: Self / Same As Patient Allergies No Known Drug Allergies Allergy (Unknown, Verified 07/06/24 16:46) Unknown Medication List - Last Reconciled 07/06/24 by Rito Srinivasan MD acetone (urine) test (Ketone Urine Test strips) As directed p.r.n. glucose over 250, nausea, vomiting, illness tid atorvastatin 40 mg PO DAILY bisacodyl (Dulcolax (bisacodyl)) 10 mg (2 x 5 mg) PO BEDTIME blood sugar diagnostic (Contour Next Test Strips) As directed 5 times a day blood-glucose meter (Contour Next Meter) As directed blood-glucose sensor (Dexcom G6 Sensor device) As directed change every 10 days blood-glucose sensor (Dexcom G6 Sensor device) As directed blood-glucose transmitter (Dexcom G6 Transmitter device) USE DIRECTED blood-glucose,frame cleaner,cont (Dexcom G6 Ice Guard Tester) As directed carvedilol 12.5 mg PO DAILY 90 days cholecalciferol (vitamin D3) 50 mcg PO DAILY 90 days escitalopram oxalate 10 mg PO DAILY 90 days glucagon 3 mg/actuation (Baqsimi) 3 mg intranasal .PRN PRN 30 days MDD 6 mg insulin glargine (Lantus U-100 Insulin) 70 units (0.7 mL) subcut DAILY PRN 30 days MDD 70 units insulin lispro infuse up to 170 units daily via insulin pump subcutaneously use as directed; insulin syringe-needle U-100 As directed prn qid for pump failure lansoprazole 30 mg PO DAILY lisinopril 20 mg PO DAILY 90 days lorazepam 0.5 mg PO DAILY PRN polyethylene glycol 3350 (Miralax) 238 grams PO ONCE tirzepatide (Mounjaro) 12.5 mg (0.625 mL) subcut QWEEK 28 days Tobacco use date assessed: 07/06/24 Dental Screening Dental Screen Date: 07/06/24 Did you have a dental visit in the last 12 months?: No Did you have a dental problem in the last 6 months where you did not have access to dental care?: No Was dental information given to patient?: No HPI 4 MONTH FOLLOW UP HPI Details Patient comes in today for his follow up visit States that he feels okay He denies any headaches or dizziness Denies any chest pains, no shortness of breath No nausea/vomiting, no abdominal pain No change in bowel habits noted Patient states that he had some follow-up labs done at [facility] last month [facility] Medical History (Updated 07/08/24 @ 04:27 by Rito Srinivasan MD) Vitamin D deficiency Diabetic foot infection Uncontrolled type 1 diabetes mellitus GERD without esophagitis Diabetic retinopathy Morbid obesity with BMI of 50.0-59.9, adult Anxiety Insomnia Benign essential hypertension Pure hypercholesterolemia Diabetes mellitus Surgical History H/O knee surgery Family History Mother High blood pressure Father High blood pressure High cholesterol Social History Housing: Apartment Alcohol intake: current Alcohol intake frequency: holidays/special occasions only Patient Tobacco Use Status: Former Tobacco user e-Cigarette/Vaping Use: Never Used Second Hand Smoke Exposure: Yes service: No Current occupational status: employed 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 1. Little interest or pleasure in doing things: not at all 2. Feeling down, depressed, or hopeless: not at all 3. Trouble falling or staying asleep, or sleeping too much: not at all 4. Feeling tired or having little energy: not at all 5. Poor appetite or overeating: not at all 6. Feeling bad about yourself - or that you are a failure or have let yourself or your family down: not at all 7. Trouble concentrating on things, such as reading the newspaper or watching television: not at all 8. Moving or speaking so slowly that other people could have noticed. Or the opposite - being so fidgety or restless that you have been moving around a lot more than usual: not at all 9. Thoughts that you would be better off or of hurting yourself in some way: not at all Total score: 0 Depression Screening Interpretation: Negative Depression Screening Done: Yes 22102 - PHQ-9 Billing: Yes Source: Developed by Drs. Sander Foy, Lyndsey Sears, Ugo Doty and colleagues, with an educational howard from [employer]. Thrive Questionnaire Date Thrive assessed: 07/06/24 I am a: Patient What is your living situation today?: I have a steady place to live Within the past 12 months, did the food you bought not last and you didn't have the money to get more?: Never true Within the past 12 months, did you worry whether your food would run out before you got money to buy more?: Never true Do you have trouble paying for medicines?: No Do you have trouble getting transportation to medical appointments?: No Do you have trouble paying your heating and electricity bill?: No Do you have trouble taking care of your child, family member or friend?: No Do you have trouble with day-to-day activities such as bathing, preparing meals, shopping, managing finances, etc.?: No Are you currently unemployed and looking for a job?: No Are you interested in more education?: No Please select the resources that you would like help with: None Currently or been in a relationship where the following occur: No concerns reported THRIVE Score: 0 AUDIT C Alcohol Use Questionnaire (AUDIT-C) 1. How often do you have a drink containing alcohol?: Monthly or less 2. How many drinks containing alcohol do you have on a typical day when you are drinking?: 1 or 2 3. How often do you have six or more drinks on one occasion?: Never Total Score: 1 Score Reviewed/Action Taken: Yes PAYAL-7 AMB Questionnaire PAYAL-7 Date PAYAL - 7 assessed: 07/06/24 Feeling nervous, anxious, or on edge: 2 = More than half the days Not being able to stop or control worryin = Several days Worrying too much about different things: 2 = More than half the days Trouble relaxin = Several days Being so restless that it is hard to sit still: 1 = Several days Becoming easily annoyed or irritable: 1 = Several days Feeling afraid as if something awful might happen: 1 = Several days Total PAYAL-7 score (0-4 normal; 5-9 mild; 10-14 moderate; 15-21 severe): 9 Source: Developed by Drs. Sander Foy, Lyndsey Sears, Ugo Doty and colleagues, with an educational howard from [employer]. Review of Systems Const Denies chills, Denies fatigue, Denies fever(s) and Denies headache(s) ENT Denies dysphagia, Denies dizziness, Denies otalgia, Denies headache(s), Denies neck pain, Denies odynophagia and Denies sore throat Card Denies chest pain, Denies irregular heart rhythm, Denies palpitations and Denies dyspnea Resp Denies chest congestion, Denies cough and Denies dyspnea GI Denies abdominal pain, Denies constipation, Denies dysphagia, Denies heartburn, Reports loose stools (on and off), Denies nausea, Denies odynophagia and Denies vomiting Denies difficulty urinating, Denies dysuria and Denies urinary frequency Musc Denies back pain, Denies arthralgias and Denies neck pain Skin/Breast Denies rash Neuro Denies dizziness, Denies headache(s) and Denies paresthesias Endo Denies fatigue and Denies palpitations Physical exam (Primary Care) Vital Signs: Last Vital Signs Pulse 76 07/06/24 16:17 BP 126/82 07/06/24 16:17 Pulse Ox 98 07/06/24 16:17 Oxygen Delivery Method Room Air 07/06/24 16:17 BMI result Body Mass Index 57.5 Tobacco/Smoking Status: Tobacco use Status Tobacco use date assessed 07/06/24 07/06/24 16:19 Patient Tobacco Use Status Former Tobacco user 07/06/24 16:19 e-Cigarette/Vaping Use Never Used 07/06/24 16:19 PHQ-9: PHQ-9 Score PHQ-9: Total score 0 07/06/24 16:48 Depression Screening Interpretation: Negative Thrive Assessment: Date of Thrive Assessment Date Thrive assessed 07/06/24 07/06/24 16:19 Currently or been in a relationship where the following occur: No concerns reported Const General: no acute distress and alert HENMT Ears: TM's normal bilaterally and EAC's normal Throat: Yes posterior oropharynx normal and Yes tonsils normal (no TP congestion) Neck Neck: Yes supple and No lymphadenopathy Thyroid: Thyroid normal Resp Auscultation: clear to auscultation bilaterally, no rales and no wheezes Cardio Rate: regular rate Rhythm: regular rhythm Heart sounds: no murmurs GI Palpation (GI): Soft to palpation and nontender Auscultation: normal bowel sounds General: Yes no CVA tenderness Back/Spine/Pelvis Back: no CVA tenderness Thoracic/Lumbar Spine: No lumbar spinal tenderness Skin Rashes: no rashes Extrem General: Yes no clubbing, cyanosis or edema Coding Level of Care Code Est Pt Level 4 (12038) Diagnoses Type 1 diabetes mellitus with hyperglycemia E10.65 Diabetes mellitus type: type 1 Diabetes mellitus complication status: with hyperglycemia Mild nonproliferative diabetic retinopathy of both 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 macular edema associated with type 1 diabetes mellitus E10.3293 Diabetes mellitus type: type 1 Diabetic retinopathy severity: with mild nonproliferative retinopathy Diabetes mellitus macular edema: without macular edema Laterality: bilateral Pure hypercholesterolemia E78.00 Benign essential hypertension I10 Bandemia D72.825 Leukocytosis type: bandemia Osteomyelitis of third toe of left foot M86.9 Vitamin D deficiency E55.9 GERD without esophagitis K21.9 Insomnia, unspecified type G47.00 Insomnia type: unspecified Anxiety F41.9 Morbid obesity with BMI of 50.0-59.9, adult E66.01; Z68.43 Additional Codes PHQ-9 - 55118 - PHQ-9 Billing: Yes ([id number]) Assessment & Plan Assessment & Plan (1) Diabetes mellitus: Comment: w/insulin pump Code(s): E11.9 - Type 2 diabetes mellitus without complications Category: Medical Qualifiers: Diabetes mellitus type: type 1 Diabetes mellitus complication status: with hyperglycemia Qualified Code(s): E10.65 - Type 1 diabetes mellitus with hyperglycemia Plan: His HgbA1c was most recently at 7.0% earlier this month on 06/07/2024 at the endocrinology office (it was previously at 7.1% back in February 2024) - goal is at least <7.0% Reinforced diabetic diet Continue Lantus 70 units QD, Humalog U-100 up to 170 units daily (he has an insulin pump) and Mounjaro 12.5 mg SQ Q week Follow up with endocrinology as scheduled (2) Diabetic retinopathy: Code(s): E11.319 - Type 2 diabetes mellitus with unspecified diabetic retinopathy without macular edema Category: Medical Qualifiers: Diabetes mellitus type: type 1 Diabetic retinopathy severity: with mild nonproliferative retinopathy Diabetes mellitus macular edema: without macular edema Laterality: bilateral Qualified Code(s): E10.3293 - Type 1 diabetes mellitus with mild nonproliferative diabetic retinopathy without macular edema, bilateral Plan: His last diabetic eye exam was done last month (May 2024) - he goes to Dr. Greg Dunn at [facility] in [place] Follow up with [email or web address] application developer as scheduled for his annual diabetic eye exam (3) Pure hypercholesterolemia: Code(s): E78.00 - Pure hypercholesterolemia, unspecified Category: Medical Plan: Results of his most recent follow-up labs done at [facility] last month reviewed and discussed with patient but there does not appear to have any fasting lipids included at the time His LDL cholesterol was at 66 mg/dl when last checked in May 2023 Reinforced low cholesterol diet Continue Atorvastatin 40 mg QD - dose appears to have been lowered from 80 mg QD a few months ago Will recheck his labs and fasting lipids in 4 months for follow up (4) Benign essential hypertension: Code(s): I10 - Essential (primary) hypertension Category: Medical Plan: Reinforced low sodium diet - goal is systolic BP of 120 mm or less Continue Lisinopril 20 mg QD and Carvedilol 12.5 mg BID (5) Leukocytosis (leucocytosis): Code(s): D72.829 - Elevated white blood cell count, unspecified Category: Medical Qualifiers: Leukocytosis type: bandemia Qualified Code(s): D72.825 - Bandemia Plan: Patient's CBC over the years have always shown (+) mild/low level leucocytosis (absolute neutrophilia) since 2021 He was referred to and seen by hematology last year and was advised that 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 Will continue to monitor his CBC regularly Follow up with hematology as scheduled or as needed (6) Osteomyelitis of third toe of left foot: Code(s): M86.9 - Osteomyelitis, unspecified Category: Medical Plan: Patient states that he completed all of his Abx, most recently Cipro and Erythromycin, and that his osteomyelitis has reportedly completely resolved - he was also previously treated with Doxycycline and Augmentin He is following up with infectious disease and with Wound care at [facility] regularly for these (7) Vitamin D deficiency: Code(s): E55.9 - Vitamin D deficiency, unspecified Category: Medical Plan: Continue Vitamin D3 2000 units QD (8) GERD without esophagitis: Code(s): K21.9 - Gastro-esophageal reflux disease without esophagitis Category: Medical Plan: Reinforced dietary restrictions Continue Lansoprazole 30 mg QD (9) Insomnia: Code(s): G47.00 - Insomnia, unspecified Category: Medical Qualifiers: Insomnia type: unspecified Qualified Code(s): G47.00 - Insomnia, unspecified Plan: Sleep hygiene reinforced Continue Trazodone 50 mg Q HS PRN (10) Anxiety: Code(s): F41.9 - Anxiety disorder, unspecified Category: Medical Plan: Continue Escitalopram 10 mg QD and Lorazepam 0.5 mg QD PRN - states that he rarely has to take his Lorazepam (mostly once a month when needed) (11) Morbid obesity with BMI of 50.0-59.9, adult: Code(s): E66.01 - Morbid (severe) obesity due to excess calories; Z68.43 - Body mass index [BMI] 50.0-59.9, adult Category: Medical Plan: Reinforced diet/exercise as tolerated/lose weight Plan Follow up in 4 months Orders: Orders Complete Blood Count Auto Diff 4 Months D64.9 - Anemia, unspecified Lipid Panel 4 Months E78.00 - Pure hypercholesterolemia, unspecified Microalbumin, Random (w Creat) 4 Months E11.9 - Type 2 diabetes mellitus without complications Vitamin B12 and Folate 4 Months E53.8 - Deficiency of other specified B group vitamins Comprehensive [place]. Panel Fast 4 Months E78.00 - Pure hypercholesterolemia, unspecified Hemoglobin A1c 4 Months E11.9 - Type 2 diabetes mellitus without complications TSH reflex Free T4 4 Months E78.00 - Pure hypercholesterolemia, unspecified UA CC w/rflx Micro + Cult 4 Months R30.0 - Dysuria Vitamin D 25-OH Total 4 Months E55.9 - Vitamin D deficiency, unspecified Medications: New lorazepam 0.5 mg PO DAILY PRN 30 tabs 0RF Anxiety Refilled lansoprazole 30 mg PO DAILY 90 caps 1RF
== END 2024-07-06 16:52 | disposition home or self-care (01) ==
LOC: HO.HMCH 16:08
PROVIDERS: PCP Internal Medicine; Visit Provider Internal Medicine
DX: E10.65 Type 1 diabetes mellitus with hyperglycemia (principal); E10.3293 Type 1 diabetes mellitus with mild nonproliferative diabetic retinopathy without macular edema, bilateral; E66.01 Morbid (severe) obesity due to excess calories; Z68.43 Body mass index [BMI] 50.0-59.9, adult; M86.9 Osteomyelitis, unspecified; E78.00 Pure hypercholesterolemia, unspecified; I10 Essential (primary) hypertension; D72.825 Bandemia; E55.9 Vitamin D deficiency, unspecified; K21.9 Gastro-esophageal reflux disease without esophagitis; G47.00 Insomnia, unspecified; F41.9 Anxiety disorder, unspecified

== ENCOUNTER → 2024-07-06 16:08 | Outpatient (BNVA) | payer OTHER, SELFPAY | PROVIDERS: PCP Internal Medicine; Visit Provider Internal Medicine | DX: E10.65 Type 1 diabetes mellitus with hyperglycemia (principal); E10.3293 Type 1 diabetes mellitus with mild nonproliferative diabetic retinopathy without macular edema, bilateral; E78.00 Pure hypercholesterolemia, unspecified; I10 Essential (primary) hypertension; D72.825 Bandemia; M86.9 Osteomyelitis, unspecified; E55.9 Vitamin D deficiency, unspecified; K21.9 Gastro-esophageal reflux disease without esophagitis; G47.00 Insomnia, unspecified; F41.9 Anxiety disorder, unspecified; E66.01 Morbid (severe) obesity due to excess calories; D64.9 Anemia, unspecified; E53.8 Deficiency of other specified B group vitamins; R30.0 Dysuria; Z68.43 Body mass index [BMI] 50.0-59.9, adult | CPT/HCPCS: 96127 ==

== ENCOUNTER 2024-07-11 07:56 | Day surgery (SDC) | payer OTHER, SELFPAY ==
--- OUTSIDE RECORDS SUMMARY | 2024-06-06 15:35 | XMS_ITS | Patient Health Record ---
Author Organization [facility] Address [address] [place] [address] Care Team Providers Care Before School Babysitter Name Role Phone Craig SANCHEZ, Rito Primary Care Provider Unava anjanairaida Viv Guevaraine Unavailable [phone] Allergies No Known Allergies Results Component Value Reference Range Notes HEMOGLOBIN A1C (GLYCOHEMOGLO BIN) Reviewed date:12/30/2023 12:20:38 PM Interpretation: Performing Lab: Notes/Report: TOTAL HEMOGLOBIN (HGBA1C) 6.8 HEMOGLOBIN A1C (GLYCOHEMOGLO BIN) Reviewed date:02/14/2024 09:26:37 AM Interpretation: Performing Lab: Notes/Report: HEMOGLOBIN A1C % (HH) 6.8 Reason For Referral No Information Medications [...] Problem Acquired hammer toe of right foot (3715053224467390) Other hammer toe(s) (acquired), right foot (M20.41) Active confirmed Problem Acquired hammer toe of left foot (6311738277737437) Other hammer toe(s) (acquired), left foot (M20.42) Active confirmed Problem Ulcer of toe (832497372) Non-pressure chronic ulcer of other part of left foot limited to breakdown of skin (L97.521) Active confirmed Problem Acquired hammer toe of left foot (6370004135892790) Other hammer toe(s) (acquired), left foot (M20.42) Active confirmed Problem Polyneuropathy due to diabetes mellitus type I (373992066) Type 1 diabetes mellitus with diabetic polyneuropathy (E10.42) Active confirmed Problem 894092036 Hammer toe of left foot (M20.42) Active confirmed Problem 0985963128199868 Other acute osteomyelitis of left foot (M86.172) Active confirmed Rx drug management (4) Problem Ulcer of toe (177751383) Ulcer of left foot with bone involvement without evidence of necrosis (L97.526) Active confirmed Problem 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) Active confirmed Vital Signs Blood pressure diastolic 70 mm Hg 02/14/2024 Height 6ft 3in in 02/14/2024 Blood pressure systolic 130 mm Hg 02/14/2024 Weight 425 lbs 02/14/2024 BMI 53.12 kg/m2 02/14/2024 Encounters Encounter Location Date Provider Diagnosis [address] [address] 12/30/2023 Becki Guevara Cellulitis of toe of left foot L03.032 ; Chronic osteomyelitis M86.60 ; Skin ulcer with necrosis of bone L98.494 and Type 1 diabetes mellitus with diabetic polyneuropathy E10.[address] [address] 01/17/2024 Beckileesa Guevara Chronic osteomyelitis M86.60 ; Cellulitis of toe of left foot L03.032 ; Skin ulcer with necrosis of bone L98.494 and Type 1 diabetes mellitus with diabetic polyneuropathy E10.[address] [address] 02/14/2024 Beckileesa Guevara Chronic osteomyelitis M86.60 ; Cellulitis of toe of left foot L03.032 ; Skin ulcer with necrosis of bone L98.494 and Type 1 diabetes mellitus with diabetic polyneuropathy E10.[address] [address] 02/07/2024 Becki Ismael [address] [address] 02/14/2024 Becki Guevara [address] [address] 02/14/2024 Becki Guevara [address] [address] 01/03/2024 Becki Guevara Assessments Encounter Date Diagnosis [...] 05/25/2022 *Wound Culture 12/17/2020 *Wound Culture 05/12/2022 65747-NFVZYPI NAIL, 6 OR MORE 05/12/2022 47804-Tzxcxqwc Plate 09/30/2021 01672- Debride <25 sq cm 10/14/2021 21443- Debride <25 sq cm 01/07/2021 61189-LCNBQLU SKIN/TISSUE 05/12/2022 88025-FPRZPSL SKIN/TISSUE 12/17/2020 39118-UZPXAST SKIN/TISSUE 05/18/2022 04127-KARN SKIN LESION 01/23/2021 Insurance Providers Payer Name Payer Address Payer Phone Subscriber Number Group Number Insured Name Patient Relationship to Insured Coverage Start Date Coverage End Date Jose M Sood [id number] TARAH Mercado [id number] Fredrick Stafford Spouse - patient is the spouse of the insured Medical (General) History Medical History History ICD Code Anxiety Diabetes type 1 High Blood Pressure Surgical History Surgery Date(Month/Year) Tibial Plateau Repair ( complications se psis) 01/15/2020 Infection Repair 02/10/2020 Hospitalization History Reason Date(Month/Year) [facility]- bacterial pneumonia 12/20/23
--- OUTSIDE RECORDS SUMMARY | 2024-06-06 15:35 | XMS_ITS ---
Author Organization [facility] Address [address] [place] [address] Care Team Providers Care Instructor Looping Name Role Phone Craig SANCHEZ, [place] Primary Care Provider Unava ilable Becki Guevara Unavailable [phone] REASON FOR VISIT Inf Disease/Vasc Encounters Encounter Location Date Provider Diagnosis [facility] [address] [place] [address] 02/14/2024 Becki Guevara Plan Of Treatment No Information Progress Notes * IVANEvelia CORREAOB: 7 (49 yo M)Acc No.[id number]:02/14/2024 Patient:?Ryan LOUIS :1975???Age:49 Y???Sex:Male Address:[address] [place] [address], [address] * true * Date:? Generated for Printi laura/Billy/eTransmitting on:?06/06/2024 03:35 PM EDT
--- OUTSIDE RECORDS SUMMARY | 2024-06-06 15:37 | XMS_ITS | Clinical Summary ---
Author Organization [facility] Facility Address [address] [address] Care Team Providers Care Motion Pictures Cartoonist Name Role Phone Eliezer Mendoza MD Primary [...] - 19+ 3-dose series) 01/14/1996 Influenza Vaccine (Season Ended) 2024 Pneumococcal Vaccine: Peds ( 0 to 5 Years) and At-Risk Patients (6 to 49 Years) Aged Out No longer eligible b ased on patient's age to complete this topic Insurance C[employer] Open Access ([id number]) Care Teams Motion Pictures Cartoonist Relationship Specialty Start Date End Date Eliezer Mendoza MD [address] [place] [address] PCP - General Family Medicine 03/13/20
--- OUTSIDE RECORDS SUMMARY | 2024-06-06 15:37 | XMS_ITS ---
Author Organization [facility] Address [address] [place] [address] Care Team Providers Care Archivist Political History Name Role Phone Craig SANCHEZ, [place] Primary Care Provider Unava Becki Lainez Unavailable [phone] Allergies No Known Allergies REASON FOR VISIT [...] 025 Encounters Encounter Location Date Provider Diagnosis [facility] [address] [address] 02/14/2024 Becki Guevara Chronic osteomyelitis M86.60 ; [...] symptoms of infection or any untoward reactions (86582) , LEFT Progress Notes * Evelia LOUISOB: 7 (49 yo M)Acc No.[id number]:02/14/2024 Progress Notes Patient:?Ryan LOUIS Provider:?Becki Guevara DPM :1975???Age:49 Y???Sex:Male Sascha e:02/14/2024 Address:[address] [place] [address] Pcp:Rito Srinivasan MD Subjective: * Chief Complaints: [...] day. ?Exercise: no. ?Marital status: . 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 * Medications:?TakingMounjaro Carvedilol 3.125 MG [...] Tablet 1 tablet Orally every 12 hrs Not- Taking/PRNCephalexin 500 MG Capsule 1 capsule Orally twice [...] in no acute distress.?ORIENTED:?person, place, and time.?FOOT EXAM:?Lower Extremity Neurological Exam performed:?Yes ?Footwear Evaluation?Footwear Evaluation performed:?Yes?Dermatologic: ?SKIN FINDINGS:?Skin shows sign(s) of, localized cellulitis [...] and medial calcaneal nerves.?Ophthalmology Referral: ?DIABETES EYE EXAM?Procedure Performed:?Yes ?Date of Exam Performed?08/08/2023 ?Findings of Diabetic Eye Exam:?no retinopathy??? Assessment: * Assessment: 1.?Cellulitis of toe of [...] symptoms of infection or any untoward reactions (91564) , LEFT.? * Procedure Codes:?65435 DEBRI DE SKIN/TISSUE * Preventive Medicine:? ??Counseling:?Consult:?Patient has another infectious disease appt tmrw 02/15/24 for now they are continuing him on Ciprofloxacin and are planning on a vascular consult- will reach out to infectious disease for his notes..? * Follow Up:?1 Week * Images: * Sign off status: Completed true * Provider:?Becki Guevara DPM Date:?0 02/14/2024 Generated for Iban sanchez/Billy/Stewart on:?06/06/2024 03:37 PM EDT History and Physical Notes * HPI (History [...]
--- OUTSIDE RECORDS SUMMARY | 2024-06-06 15:37 | XMS_ITS ---
Author Organization [facility] Address [address] [place] [address] Care Team Providers Care Business Technology Architect Name Role Phone Craig SANCHEZ, [employer] Primary Care Provider Unava ilable Becki Guevara Unavailable [phone] REASON FOR VISIT [place] Encounters Encounter Location Date Provider Diagnosis [facility] [address] [place] [address] 02/14/2024 Becki Guevara Plan Of Treatment No Information Progress Notes * IVANEvelia CORREAOB: 7 (49 yo M)Acc No.[id number]:02/14/2024 Patient:?Ryan LOUIS :1975???Age:49 Y???Sex:Male Address:[address] [place] [address], [address] * true * Date:? Generated for Sarahi laura/Billy/eTransmitting on:?06/06/2024 03:37 PM EDT
--- NOTE | 2024-07-10 09:48 | P.CONAN_ITS ---
Documented by User: Ros Eastman NP 07/10/24 09:50 HPI - Anesthesia Eval Consult details Narrative: 49yo M for Upper Endoscopy and Colonoscopy BMI 57.5 Anesthesia Pre-Procedure Meds Is the patient on any of the following meds?: GLP1/DPP4 PMFSH Active Problems Active Problems: All Active Problems (Updated 07/08/24 @ 04:27 by Rito Srinivasan MD) Vitamin D deficiency (Acute) Osteomyelitis of third toe of left foot (Acute) Colon cancer screening (Acute) Annual physical exam (Acute) Leukocytosis (leucocytosis) (Chronic) Bronchitis (Acute) Otitis externa of right ear (Acute) Diabetic foot infection (Acute) Uncontrolled type 1 diabetes mellitus (Acute) GERD without esophagitis (Acute) Diabetic retinopathy (Acute) Morbid obesity with BMI of 50.0-59.9, adult (Acute) Anxiety (Acute) Insomnia (Acute) Benign essential hypertension (Acute) Pure hypercholesterolemia (Acute) Diabetes mellitus (Acute) Past Medical History Medical History (Updated 07/11/24 @ 08:49 by Kelsey Heart RN) HORACIO on CPAP Vitamin D deficiency Diabetic foot infection Uncontrolled type 1 diabetes mellitus GERD without esophagitis Diabetic retinopathy Morbid obesity with BMI of 50.0-59.9, adult Anxiety Insomnia Benign essential hypertension Pure hypercholesterolemia Diabetes mellitus Family History Family History Mother High blood pressure Father High blood pressure High cholesterol Surgical History Surgical History H/O knee surgery Social History Social History Housing: Apartment Are you a primary continuum of care manager to a significant other at home: No Do you presently have visiting nurse or other home services: No Alcohol intake: current Alcohol intake frequency: holidays/special occasions only Patient Tobacco Use Status: Former Tobacco user Tobacco use type: Cigarette Years Smoked: 5 Smoked in Last 30 Days: No e-Cigarette/Vaping Use: Never Used Second Hand Smoke Exposure: Yes Use of substances other than those prescribed or required for medical reasons: Yes Substance Use Type Other:: Edibles only Substance Use Frequency: Monthly Have you been hit, kicked, punched, or otherwise hurt by someone within the past year? 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 [place] Cognitive needs: No Hearing needs: No Vision needs: Yes Meds Allergies Allergy/AdvReac Type Severity Reaction Status Date / Time No Known Drug Allergies Allergy Unknown Unknown Verified 07/11/24 08:49 Home Medications ?Medication ?Instructions ?Recorded ?Confirmed ?Last Taken ?Type blood-glucose meter (Contour Next 11/27/21 07/11/24 Unknown History Meter) blood sugar diagnostic (Contour 03/03/22 07/11/24 Unknown History Next Test Strips) Assessment and Plan Assessment Anesthesia Assessment: Chart Reviewed Documented by User: Alfonso Lyn MD 07/11/24 10:21 [facility] Past Medical History Medical History (Updated 07/11/24 @ 08:49 by Kelsey Heart RN) HORACIO on CPAP Vitamin D deficiency Diabetic foot infection Uncontrolled type 1 diabetes mellitus GERD without esophagitis Diabetic retinopathy Morbid obesity with BMI of 50.0-59.9, adult Anxiety Insomnia Benign essential hypertension Pure hypercholesterolemia Diabetes mellitus Family History Family History Mother High blood pressure Father High blood pressure High cholesterol Family history of problems with anesthesia: No Surgical History Surgical History H/O knee surgery History of Problems with Anesthesia: No Social History Social History Housing: Apartment Are you a primary continuum of care manager to a significant other at home: No Do you presently have visiting nurse or other home services: No Alcohol intake: current Alcohol intake frequency: holidays/special occasions only Patient Tobacco Use Status: Former Tobacco user Tobacco use type: Cigarette Years Smoked: 5 Smoked in Last 30 Days: No e-Cigarette/Vaping Use: Never Used Second Hand Smoke Exposure: Yes Use of substances other than those prescribed or required for medical reasons: Yes Substance Use Type Other:: Edibles only Substance Use Frequency: Monthly Have you been hit, kicked, punched, or otherwise hurt by someone within the past year? 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 [place] Cognitive needs: No Hearing needs: No Vision needs: Yes Meds Allergies Allergy/AdvReac Type Severity Reaction Status Date / Time No Known Drug Allergies Allergy Unknown Unknown Verified 07/11/24 08:49 Home Medications ?Medication ?Instructions ?Recorded ?Confirmed ?Last Taken ?Type blood-glucose meter (Contour Next 11/27/21 07/11/24 Unknown History Meter) blood sugar diagnostic (Contour 03/03/22 07/11/24 Unknown History Next Test Strips) Exam Airway Mallampati Class: II TM Dist: <=3cm Neck ROM: Full Loose/Missing/Broken Teeth: No Heart: ok Lungs: ok Assessment and Plan Assessment Anesthesia Assessment: Anesthesia Plan Discussed Final Anesthetic Review Family History of Problems with Anesthesia: No History of Problems with Anesthesia: No NPO: Yes ASA Class: III Final Preanesthetic Review: No Changes in Pt Med Stat, Meds/Allgs Chart Reviewed, Consent Obtained/Reviewed and Anes Risks/Benef Reviewed Patient Risk: High Procedure Risk: Intermediate Anesthetic Plan Anesthetic Plan: Agree w/ Assess. and Plan and TIVA Disposition: Standard PACU
[2024-07-11 08:51] VITALS: BP 139/70; PULSE 75; RESP 16; TEMP 36.7; O2SAT 97; BMI 57.2
[2024-07-11] MEDS: Lactated Ringers 1,000 ML 100 ML IVCONT (09:01)
--- NOTE | 2024-07-11 09:58 | P.HPSUR_ITS ---
Pre-Procedural Eval Section A - 24 Hr Update-Section A only Date of Service: 07/11/24 Section B - Complete if H&P > 30 days Chief Complaint: gerd,screening Relevant Family History (Specify if Yes): No Relevant Social History: None Present Medications: see Short Stay Collaborative assessment Medical History: Significant History (Diabetic foot infection Uncontrolled type 1 diabetes mellitus GERD without esophagitis Diabetic retinopathy Morbid obesity with BMI of 50.0-59.9, adult Anxiety Insomnia Benign essential hypertension Pure hypercholesterolemia Diabetes mellitus) History of Previous Operations: Relevant previous surgery/procedure and date(s) (H/O knee surgery) Allergies: Allergies Allergy/AdvReac Type Severity Reaction Status Date / Time No Known Drug Allergies Allergy Unknown Unknown Verified 07/11/24 08:49 Review of Systems Sugical H&P ROS: Negative: Constitution, Cardiovascular, Respiratory, Neurological, Psychiatric, Hem-Onc, Allergic/Immunologic, Gastrointestinal, Genitourinary, Musculoskeletal, Integumentary, Endocrine and Eyes/Ears /Nose/Throat Exam Surgical H&P Exam: Normal: HEENT, Normal: Heart, Normal: Lungs, Normal: Extremities, Normal: Abdomen, Normal: Skin and Normal: Neurological Plan Diagnosis/Plan: Unchanged I have reviewed the history and physical and performed a pertinent physical examination on my patient. No changes have occurred unless specified. morbid obesity Time Spent With Patient Time: Total time managing care of this patient today ____ minutes.
--- NOTE | 2024-07-11 11:05 | P.OPN-COLO_ITS ---
Colonoscopy Operative Note Operative Note Date of Service: 07/11/24 Narrative: Operative Information Procedure Description: EGD, Colonoscopy Indication: GERd, screening Anesthesia: MAC FLEXIBLE TRANSORAL UPPER GASTROINTESTINAL ENDOSCOPY AND COLONOSCOPY PROCEDURE NOTE UPPER ENDOSCOPY Consent: Indications for the procedure and potential complications of bleeding, perforation, reaction to medications and missed diagnosis were discussed with the patient and informed consent was obtained. Instrument: Olympus GIF H 190 J mid size upper endoscope Monitoring: Vital signs and clinical assessment, continuous EKG monitoring, Pulse oximetry, Carbon Dioxide monitoring and blood pressure monitoring were done throughout the procedure. Procedure: The patient was placed in the left lateral decubitis position and pre-procedure medications were administered and a bite block was placed. The endoscope was inserted into the mouth and advanced under direct vision to the third part of duodenum. A careful inspection was made as the upper endoscope was withdrawn including a retroflexed examination of the proximal stomach; Findings and interventions are described below. Findings: Larynx:normal Esophagus: GE junction at 40 cm, diaphragm hiatus at 40 cm, normal mucosa Stomach: Patchy erythema. Biopsies were obtained. Grade 2 flap valve on retroflexed examination of the cardia. Duodenum: Normal bulb and descending duodenum, Intervention: Biopsies as noted above, COLONOSCOPY Instrument: Olympus variable stiffness ADULT scope 190L Colonoscopy Monitoring: Vital signs and clinical assessment, continuous EKG monitoring, Pulse oximetry, Carbon Dioxide monitoring and blood pressure monitoring were done throughout the procedure. Colon withdrawal time was 11 minutes. Procedure: The patient was placed in the left lateral decubitis position and pre-procedure medications were administered. After a digital rectal examination of the ano-rectum, the video colonoscope was inserted into the rectum and advanced through the colon to the cecum/TI. The colonoscope was slowly withdrawn in a retrograde panoramic fashion and the colon mucosa was carefully examined including a retroflexed view of the rectum. Findings and interventions are described below. Procedure Difficulty:moderate Findings: Terminal Ileum-not intubated Cecum: 3-4 mm sessile polyp removed with cold forceps Ascending Colon: normal Transverse Colon -normal Descending Colon:normal Sigmoid Colon: normal Rectum: Retroflexion with samll internal hemorrhoids, grade I Anorectum - normal Colon preparation: [place] Bowel Preparation Scale Right colon; 2 Transverse colon: 2 Left colon; 1-2 (0 = Unprepared colon segment with mucosa not seen due to solid stool that cannot be cleared. 1 = Portion of mucosa of the colon segment seen, but other areas of the colon segment not well seen due to staining, residual stool and/or opaque liquid. 2 = Minor amount of residual staining, small fragments of stool and/or opaque liquid, but mucosa of colon segment seen well. 3 = Entire mucosa of colon segment seen well with no residual staining, small fragments of stool or opaque liquid) Impression and Post Procedure Diagnosis: Endoscopy Findings: gastritis Colonoscopy Findings: colon polyp internal hemorrhoids Plan: Await Pathology results Repeat Colonoscopy in 3 years due to fair prep on the left or earlier if clinically indicated High fiber diet leaflet avoid straining at stool, epsom salts and sitz bath, anusol supps or cream Above findings were reviewed with the patient and relevant handouts were provided if indicated.
[2024-07-11 11:12] VITALS: BP 98/55; PULSE 72; RESP 22; TEMP 36.6; O2SAT 96
[2024-07-11 11:27] VITALS: BP 105/52; PULSE 68; RESP 16; TEMP 36.6; O2SAT 97
== END 2024-07-11 11:57 | disposition home or self-care (01) ==
PROVIDERS: PCP Internal Medicine; Visit Provider Internal Medicine Gastroenterology
PROC: (CPT 45380; principal; 2024-07-11 09:30)
DX: Z12.11 Encounter for screening for malignant neoplasm of colon (principal); K63.5 Polyp of colon; K64.0 First degree hemorrhoids; K21.9 Gastro-esophageal reflux disease without esophagitis; K29.50 Unspecified chronic gastritis without bleeding; K44.9 Diaphragmatic hernia without obstruction or gangrene
CPT/HCPCS: 45380; 43239; 88305; 88313; 88342; J2003; J2704; J3010

== ENCOUNTER → 2024-07-11 07:56 | Outpatient (BNV) | payer OTHER, SELFPAY | PROVIDERS: PCP Internal Medicine; Visit Provider Internal Medicine Gastroenterology | DX: Z12.11 Encounter for screening for malignant neoplasm of colon (principal); D12.0 Benign neoplasm of cecum; K64.0 First degree hemorrhoids; K21.9 Gastro-esophageal reflux disease without esophagitis; K29.70 Gastritis, unspecified, without bleeding | CPT/HCPCS: 43239; 45380 ==

== ENCOUNTER → 2024-07-16 08:36 | Outpatient (BNVA) | payer OTHER, SELFPAY | PROVIDERS: PCP Internal Medicine; Visit Provider Dietitian, Registered | DX: E66.01 Morbid (severe) obesity due to excess calories (principal); Z68.43 Body mass index [BMI] 50.0-59.9, adult; E10.65 Type 1 diabetes mellitus with hyperglycemia; Z71.3 Dietary counseling and surveillance | CPT/HCPCS: 97803 ==

== ENCOUNTER → 2024-08-17 16:33 | Outpatient (AMB) | payer OTHER, SELFPAY ==
--- NOTE | 2024-08-17 16:36 | MHC.OFFVIS ---
Vital Signs 08/17/24 16:37 Height 6 ft 2 in Weight 433 lb BMI 55.6 BP 134/67 Blood Pressure Location Lt brachial Position Sitting Pulse 82 Pulse Oximetry (%) 97 Oxygen Delivery Method Room Air Intake Visit Reasons: S/P Intake Note: Patient follow up for post op Patient denies any follow up for GI issues. 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 Currently patient is taking antibiotics Augmentin and doxycycline for osteomyelitis and is having occasional loose stools. Patient denies any abdominal pain or discomfort. He is on lansoprazole daily and has been for many years. Occasional breakthrough reflux. Patient will be sent for upper endoscopy as well. Denies any issues with anesthesia in the past.? History of sleep apnea on CPAP.? No history infectious diseases in the past or present. 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 Not on any anticoagulation therapy.? No family or personal history of colon cancer or polyps.? Patient denies melena, hematochezia, unintentional weight loss or ribbon like stools.? Discussed at length the pre-procedure,? prep, diet & medications as well as what to expect prior, during and after the procedure.?? Stressed the importance of good bowel prep.? Recommended the use of Vaseline or Calmoseptine OTC & baby wipes with bowel movements to promote comfort.? ?Patient verbalizes understanding and agrees to plan of care.? He was given the opportunity to ask questions and all questions answered.? We will see him after the procedure.? New bisacodyl (Dulcolax (bisacodyl)) Start taking 2 tablet every night 6 days before the procedure and 1 day before procedure take 2 tablets at noon time followed by MiraLax prep 10 mg (2 x 5 mg) PO BEDTIME 14 tabs 0RF Z12.11 polyethylene glycol 3350 (Miralax) As directed by gastroenterology department at [facility] 238 grams PO ONCE 238 grams 0RF Z12.11 UPPER ENDOSCOPY AND COLONOSCOPY Findings: Larynx:normal Esophagus: GE junction at 40 cm, diaphragm hiatus at 40 cm, normal mucosa Stomach: Patchy erythema. Biopsies were obtained. Grade 2 flap valve on retroflexed examination of the cardia. Duodenum: Normal bulb and descending duodenum, Intervention: Biopsies as noted above, COLONOSCOPY Instrument: Olympus variable stiffness ADULT scope 190L Colonoscopy Monitoring: Vital signs and clinical assessment, continuous EKG monitoring, Pulse oximetry, Carbon Dioxide monitoring and blood pressure monitoring were done throughout the procedure. Colon withdrawal time was 11 minutes. Procedure: The patient was placed in the left lateral decubitis position and pre-procedure medications were administered. After a digital rectal examination of the ano-rectum, the video colonoscope was inserted into the rectum and advanced through the colon to the cecum/TI. The colonoscope was slowly withdrawn in a retrograde panoramic fashion and the colon mucosa was carefully examined including a retroflexed view of the rectum. Findings and interventions are described below. Procedure Difficulty:moderate Findings: Terminal Ileum-not intubated Cecum: 3-4 mm sessile polyp removed with cold forceps Ascending Colon: normal Transverse Colon -normal Descending Colon:normal Sigmoid Colon: normal Rectum: Retroflexion with samll internal hemorrhoids, grade I Anorectum - normal Colon preparation: [place] Bowel Preparation Scale Right colon; 2 Transverse colon: 2 Left colon; 1-2 (0 = Unprepared colon segment with mucosa not seen due to solid stool that cannot be cleared. 1 = Portion of mucosa of the colon segment seen, but other areas of the colon segment not well seen due to staining, residual stool and/or opaque liquid. 2 = Minor amount of residual staining, small fragments of stool and/or opaque liquid, but mucosa of colon segment seen well. 3 = Entire mucosa of colon segment seen well with no residual staining, small fragments of stool or opaque liquid) Impression and Post Procedure Diagnosis: Endoscopy Findings: gastritis Colonoscopy Findings: colon polyp internal hemorrhoids Plan: Await Pathology results Repeat Colonoscopy in 3 years due to fair prep on the left or earlier if clinically indicated High fiber diet leaflet avoid straining at stool, epsom salts and sitz bath, anusol supps or cream PATHOLOGY RESULTS Diagnosis A. Stomach, biopsy: Gastric antral mucosa with moderate chronic, focally active gastritis; negative for Helicobacter pylori, intestinal metaplasia and dysplasia. B. Colon, cecum, polypectomy: Polypoid colonic mucosa with mildly active colitis in keeping with inflammatory polyp TODAY'S VISIT Patient is here today for follow-up and to discuss upper endoscopy and colonoscopy results. Patient denies any ill effects from the prep, anesthesia or procedure itself. Suboptimal prep and colonoscopy was recommended to repeat in 3 years. Focally active gastritis noted. Patient does report epigastric pain occasionally. Worse at night time. Currently he is taking lansoprazole daily. For the most part patient reports that his symptoms are suppressed. Patient denies any other GI concerning symptoms. Denies melena, hematochezia. [facility] Medical History (Updated 07/30/24 @ 08:27 by Winsome Peters, RD, LDN) HORACIO on CPAP Vitamin D deficiency Diabetic foot infection Uncontrolled type 1 diabetes mellitus GERD without esophagitis Diabetic retinopathy Morbid obesity with BMI of 50.0-59.9, adult Anxiety Insomnia Benign essential hypertension Pure hypercholesterolemia Diabetes mellitus Surgical History H/O knee surgery Family History Mother High blood pressure Father High blood pressure High cholesterol Social History Housing: Apartment Are you a primary ocular care technician to a significant other at home: No Do you presently have visiting nurse or other home services: No Alcohol intake: current Alcohol intake frequency: holidays/special occasions only Patient Tobacco Use Status: Former Tobacco user Tobacco use type: Cigarette Years Smoked: 5 e-Cigarette/Vaping Use: Never Used Second Hand Smoke Exposure: Yes service: No Current occupational status: employed 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 [place] Cognitive needs: No Hearing needs: No Vision needs: Yes Review of Systems Const Denies weight gain and Denies weight loss ENT Reports no additional complaints, Denies dysphagia and Denies odynophagia Card Reports no additional complaints Resp Reports no additional complaints GI Denies abdominal pain, Denies belching, Denies melena, Reports bloating, Denies change in bowel habits, Denies dysphagia, Denies excessive flatus, Denies dyspepsia, Reports heartburn (Occasional at bedtime), Denies diarrhea, Reports loose stools (On antibiotic therapy for osteomyelitis), Denies nausea, Denies odynophagia and Denies vomiting Reports no additional complaints Musc Reports no additional complaints Neuro Reports no additional complaints Psych Reports no additional complaints Endo Reports no additional complaints Physical Exam Vital Signs: Last Vital Signs Pulse 82 08/17/24 16:37 BP 134/67 08/17/24 16:37 Pulse Ox 97 08/17/24 16:37 Oxygen Delivery Method Room Air 08/17/24 16:37 BMI result Body Mass Index 55.6 Const General: no acute distress Nutritional Appearance: obese Orientation/consciousness: patient oriented x3 Resp Effort & Inspection: normal respiratory effort, able to speak in complete sentences, no tracheal deviation and symmetric chest movement Auscultation: clear to auscultation bilaterally Cardio Rate: regular rate GI Inspection: Yes normal to inspection, No distended and Yes obesity Palpation (GI): Soft to palpation, not firm, nontender and No hepatosplenomegaly present Auscultation: normal bowel sounds General: Yes no CVA tenderness Back/Spine/Pelvis Back: no CVA tenderness Skin General skin exam: elasticity normal, turgor normal and dry skin Neuro General: patient oriented x3 Psych Appearance: grossly normal Mental Status: mental status grossly normal Assessment & Plan Assessment & Plan (1) GERD without esophagitis: Code(s): K21.9 - Gastro-esophageal reflux disease without esophagitis Category: Medical (2) Status post colonoscopy: Code(s): Z98.890 - Other specified postprocedural states Plan Patient will continue lansoprazole. We will add sucralfate at bedtime. Focal active gastritis found on upper endoscopy. No H pylori. Colonoscopy with diminutive polyp, repeat colonoscopy in 3 years due to suboptimal prep. Patient will follow-up in our office as needed. He will call us if he will have any GI concerning symptoms. He is agreeable to this plan and verbalizes understanding of instructions. He was given the opportunity to ask questions and all questions answered. Thank you for allowing me to participate in his care Medications: New sucralfate 1 g PO BEDTIME 30 tabs 4RF R19.7 - Diarrhea, unspecified Coding Level of Care Code Est Pt Level 3 (46344) Diagnoses GERD without esophagitis K21.9 Status post colonoscopy Z98.890 Time Spent (min) 30 Comment 20 minutes spent with patient and additional 10 minutes spent reviewing his records
[2024-08-17 16:37] VITALS: BP 134/67; PULSE 82; O2SAT 97; BMI 55.6
== END ==
LOC: HO.HGI 16:34
PROVIDERS: PCP Internal Medicine; Visit Provider Nurse Practitioner Family
DX: K21.9 Gastro-esophageal reflux disease without esophagitis (principal); Z98.890 Other specified postprocedural states
CPT/HCPCS: 99213

== ENCOUNTER → 2024-09-19 08:35 | Outpatient (BNVA) | payer OTHER, SELFPAY | PROVIDERS: PCP Internal Medicine; Visit Provider Dietitian, Registered | DX: Z71.3 Dietary counseling and surveillance (principal); E10.9 Type 1 diabetes mellitus without complications | CPT/HCPCS: 97803 ==

== ENCOUNTER 2024-11-05 16:49 | Outpatient (AMB) | payer OTHER, SELFPAY ==
--- OUTSIDE RECORDS SUMMARY | 2008-02-07 20:00 | XMS_ITS | Continuity of Care Document ---
Author Organization [facility] Address [address] [place] [address] [place] [phone] Phone Care Team Providers Care Gate Keeper Name Role Phone Mick SANCHEZ, Sanjuana Unavailable Unavailabl e Advance Directives Directive Yes / No Effective Date File Name No Information Encounters Encounter Description Practice Location Reason(s) For Visit Diagnoses Date Provider Providers Copied on Encounter [facility], [address] [place] [address], [place], [place], [id number], tel:[phone] [facility] No Information Mick Wei. [address] [place] [address], [place], [place], [id number], . tel:[phone] Referring Provider: Sanjuana Barton, [address] [place] [address], [id number] . tel:[phone] Family History Family Member Type Diagnosis Age At Onset No Information Payers Payer name Insurance type Covered libertarian ID Authoriza tion(s) No Information Social History Type Description Quantity Date Captured Comments Sex Male Smoking Status No Information Chief Complaint And Reason For Visit No Information Reason For Referral Reason For Referral No Information History Of Present Illness Encounter Date Complaint History Of Prese nt Illness No Information Functional Status Date Functional Assessmen t No Information Instructions Date Instruction Additional Infor mation No Information Assessments Type Assessment Date No Information Patient Care Teams Name Effective Dates (start - stop) Status Members No Information
--- OUTSIDE RECORDS SUMMARY | 2024-02-07 07:45 | XMS_ITS ---
Author Organization [facility] Address [address] [facility] [place] [address] Care Team Providers Care Cold Mill Operator Name Role Phone Agusto Srinivasan MDneth Primary Care Provider UnaBecki Powell Unavailable [phone] Medications Medication SIG (Take, Route, Frequency, Duration) Notes Start Date End Date Status Cephalexin 500 MG 1 capsule Orally Fou r times a day; Duration: 10 days 12/17/2020 Not-Taking Ciprofloxacin HCl 500 MG 1 tablet Orally every 12 hrs; Duration: 10 days 12/30/2023 Active Bactrim DS 800-160 MG 1 tablet Orally Tw ice a day; Duration: 10 days Not-Takin g Cephalexin 500 MG 1 capsule Orally twi ce a day; Duration: 10 days 09/30/2021 Not-Takin g Bactrim DS 800-160 MG 1 tablet Orally Tw ice a day; Duration: 10 days 12/23/2020 Not-Takin g Extra Depth Orthopedic Shoes (1 Pair) with Customized Heat Molded Multidensity Innersoles (3 Pair) as directed Dx: IDDM/Polyneuropathy (E10.42), Hammertoe Foot Deformity (M20.41,M20.42), Preulcerative Skin Lesion(s) (L85.1) 01/07/2021 Active Simvastatin 20 MG 1 tablet in the even ing Orally Once a day Active Escitalopram Oxalate 5 MG 1 tablet Orally Once a day Active HumaLOG Active Lisinopril Active Carvedilol 3.125 MG 1 tablet with food Orally Active Mounjaro Active Encounters Encounter Location Date Provider Diagnosis [facility] [place] [address] [place] [id number] 02/07/2024 Becki Guevara Plan Of Treatment No Information Progress Notes * Evelia LOUISOB: 7 (49 yo M)Acc No.[id number]:02/07/2024 Progress Notes Patient: Ryan CUEVA Provider: Alyse Guevara DPM :1975 A ge:49 Y S ex:Male Date:02/07/2024 Address:[address] [place], [place] [id number] Pcp:Rito Srinivasan MD Subjective: * Chief Complaints: * * Medical History: * Medications: T aking Mounjaro , Taking Carvedilol 3.125 MG Tablet 1 tablet with food Orally , Taking Escitalopram Oxalate 5 MG Tablet 1 tablet Orally Once a day , Taking Simvastatin 20 MG Tablet 1 tablet in the evening Orally Once a day , Taking Lisinopril , Taking HumaLOG , Taking Extra Depth Orthopedic Shoes (1 Pair) with Customized Heat Molded Multidensity Innersoles (3 Pair) as directed Dx: IDDM/Polyneuropathy (E10.42), Hammertoe Foot Deformity (M20.41,M20.42), Preulcerative Skin Lesion(s) (L85.1) , Taking Ciprofloxacin HCl 500 MG Tablet 1 tablet Orally every 12 hrs , Not- Taking/PRN Cephalexin 500 MG Capsule 1 capsule Orally twice a day , Not-Taking/PRN Bactrim DS 800-160 MG Tablet 1 tablet Orally Twice a day , Not-Taking/PRN Cephalexin 500 MG Capsule 1 capsule Orally Four times a day , Not-Taking/PRN Bactrim DS 800-160 MG Tablet 1 tablet Orally Twice a day Objective: * Vitals: Assessment: Plan: * Treatment: * Images: * The named appointment provid er may or may not be the originator of this progress note, and it is not deemed complete until electronically signed by the appointment provider. Sign off status: Pending * Provider: Alyse Guevara DPM Date: Generated for Iban sanchez/Billy/eTransmitting on: 0 11/05/2024 06:29 PM EDT
[2024-11-05 17:01] VITALS: BP 110/82; PULSE 71; O2SAT 97; BMI 58.6
--- NOTE | 2024-11-05 17:01 | MHC.PC.OV ---
Vital Signs 11/05/24 17:01 Height 6 ft 2 in Weight 456 lb 5.71 oz BMI 58.6 BP 110/82 Blood Pressure Location Lt brachial Position Sitting Pulse 71 Pulse Source Pulse Oximeter Pulse Oximetry (%) 97 Oxygen Delivery Method Room Air Intake Visit Reasons: follow up Dba Required: No Accompanied by: Self / Same As Patient Allergies No Known Drug Allergies Allergy (Unknown, Verified 11/05/24 17:39) Unknown Medication List - Last Reconciled 11/05/24 by Rito Srinivasan MD acetone (urine) test (Ketone Urine Test strips) As directed p.r.n. glucose over 250, nausea, vomiting, illness tid atorvastatin 40 mg PO DAILY blood sugar diagnostic (Contour Next Test Strips) As directed 5 times a day blood-glucose meter (Contour Next Meter) As directed blood-glucose sensor (Dexcom G6 Sensor device) As directed change every 10 days blood-glucose sensor (Dexcom G6 Sensor device) As directed blood-glucose transmitter (Apparentcom G6 Transmitter device) USE DIRECTED blood-glucose,facility rehab director,cont (Dexcom G6 Motion Picture Actor) As directed carvedilol 12.5 mg PO DAILY 90 days cholecalciferol (vitamin D3) 50 mcg PO DAILY 90 days escitalopram oxalate 10 mg PO DAILY 90 days glucagon 3 mg/actuation (Baqsimi) 3 mg intranasal .PRN PRN 30 days MDD 6 mg insulin glargine (Lantus U-100 Insulin) 70 units (0.7 mL) subcut DAILY PRN 30 days MDD 70 units insulin lispro infuse up to 170 units daily via insulin pump subcutaneously use as directed; insulin syringe-needle U-100 As directed prn qid for pump failure lansoprazole 30 mg PO DAILY lisinopril 20 mg PO DAILY 90 days lorazepam 0.5 mg PO DAILY PRN sucralfate 1 g PO BEDTIME tirzepatide (Mounjaro) 12.5 mg (0.625 mL) subcut QWEEK 28 days Tobacco use date assessed: 11/05/24 Dental Screening Dental Screen Date: 11/05/24 Did you have a dental visit in the last 12 months?: No Did you have a dental problem in the last 6 months where you did not have access to dental care?: No Was dental information given to patient?: Patient has dentist HPI follow up HPI Details Patient comes in today for his follow-up visit States that he feels okay and notes that his blood sugar has been much better controlled lately He denies any headaches or dizziness Denies any chest pains, no shortness of breath No nausea/vomiting, no abdominal pain No change in bowel habits noted He is again not able to get his follow-up labs done prior to his appointment today Needs his Mounjaro Rx refilled PFSH Medical History HORACIO on CPAP Vitamin D deficiency Diabetic foot infection Uncontrolled type 1 diabetes mellitus GERD without esophagitis Diabetic retinopathy Morbid obesity with BMI of 50.0-59.9, adult Anxiety Insomnia Benign essential hypertension Pure hypercholesterolemia Diabetes mellitus Surgical History H/O knee surgery Family History Mother High blood pressure Father High blood pressure High cholesterol Social History Housing: Apartment Are you a primary patient care associate to a significant other at home: No Do you presently have visiting nurse or other home services: No Alcohol intake: current Alcohol intake frequency: holidays/special occasions only Patient Tobacco Use Status: Former Tobacco user Tobacco use type: Cigarette Years Smoked: 5 e-Cigarette/Vaping Use: Never Used Second Hand Smoke Exposure: Yes service: No Current occupational status: employed 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 [place] Cognitive needs: No Hearing needs: No Vision needs: Yes Questionnaire Thrive Questionnaire Date Thrive assessed: 06/29/24 I am a: Patient What is your living situation today?: I have a steady place to live Within the past 12 months, did the food you bought not last and you didn't have the money to get more?: Never true Within the past 12 months, did you worry whether your food would run out before you got money to buy more?: Never true Do you have trouble paying for medicines?: No Do you have trouble getting transportation to medical appointments?: No Do you have trouble paying your heating and electricity bill?: No Do you have trouble taking care of your child, family member or friend?: No Do you have trouble with day-to-day activities such as bathing, preparing meals, shopping, managing finances, etc.?: No Are you currently unemployed and looking for a job?: No Are you interested in more education?: No Please select the resources that you would like help with: None Currently or been in a relationship where the following occur: No concerns reported THRIVE Score: 0 AUDIT C Alcohol Use Questionnaire (AUDIT-C) 1. How often do you have a drink containing alcohol?: Monthly or less 2. How many drinks containing alcohol do you have on a typical day when you are drinking?: 1 or 2 3. How often do you have six or more drinks on one occasion?: Never Total Score: 1 Score Reviewed/Action Taken: Yes PAYAL-7 AMB Questionnaire PAYAL-7 Date PAYAL - 7 assessed: 07/06/24 Source: Developed by Drs. Sander Foy, Lyndsey Sears, Ugo Doty and colleagues, with an educational howard from [employer]. Review of Systems Const Denies chills, Denies fatigue, Denies fever(s) and Denies headache(s) ENT Denies dysphagia, Denies dizziness, Denies otalgia, Denies headache(s), Denies neck pain, Denies odynophagia and Denies sore throat Card Denies chest pain, Denies irregular heart rhythm, Denies palpitations and Denies dyspnea Resp Denies chest congestion, Denies cough and Denies dyspnea GI Denies abdominal pain, Denies constipation, Denies dysphagia, Denies heartburn, Reports loose stools (on and off), Denies nausea, Denies odynophagia and Denies vomiting Denies difficulty urinating, Denies dysuria and Denies urinary frequency Musc Denies back pain, Denies arthralgias and Denies neck pain Skin/Breast Denies rash Neuro Denies dizziness, Denies headache(s) and Denies paresthesias Endo Denies fatigue and Denies palpitations Physical exam (Primary Care) Vital Signs: Last Vital Signs Pulse 71 11/05/24 17:01 BP 110/82 11/05/24 17:01 Pulse Ox 97 11/05/24 17:01 Oxygen Delivery Method Room Air 11/05/24 17:01 BMI result Body Mass Index 58.6 Tobacco/Smoking Status: Tobacco use Status Tobacco use date assessed 11/05/24 11/05/24 17:06 Patient Tobacco Use Status Former Tobacco user 11/05/24 17:02 Tobacco use type Cigarette 11/05/24 17:02 e-Cigarette/Vaping Use Never Used 11/05/24 17:02 Thrive Assessment: Date of Thrive Assessment Date Thrive assessed 06/29/24 11/05/24 17:02 Currently or been in a relationship where the following occur: No concerns reported Const General: no acute distress and alert HENMT Ears: TM's normal bilaterally and EAC's normal Throat: Yes posterior oropharynx normal and Yes tonsils normal (no TP congestion) Neck Neck: Yes supple and No lymphadenopathy Thyroid: Thyroid normal Resp Auscultation: clear to auscultation bilaterally, no rales and no wheezes Cardio Rate: regular rate Rhythm: regular rhythm Heart sounds: no murmurs GI Palpation (GI): Soft to palpation and nontender Auscultation: normal bowel sounds General: Yes no CVA tenderness Back/Spine/Pelvis Back: no CVA tenderness Thoracic/Lumbar Spine: No lumbar spinal tenderness Skin Rashes: no rashes Extrem General: Yes no clubbing, cyanosis or edema Coding Level of Care Code Est Pt Level 4 (26171) Diagnoses Type 1 diabetes mellitus with hyperglycemia E10.65 Diabetes mellitus complication status: with hyperglycemia Diabetes mellitus type: type 1 Mild nonproliferative diabetic retinopathy of both 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 macular edema associated with type 1 diabetes mellitus E10.3293 Diabetes mellitus macular edema: without macular edema Diabetes mellitus type: type 1 Diabetic retinopathy severity: with mild nonproliferative retinopathy Laterality: bilateral Pure hypercholesterolemia E78.00 Benign essential hypertension I10 Bandemia D72.825 Leukocytosis type: bandemia Osteomyelitis of third toe of left foot M86.9 Vitamin D deficiency E55.9 GERD without esophagitis K21.9 Insomnia, unspecified type G47.00 Insomnia type: unspecified Anxiety F41.9 Morbid obesity with BMI of 50.0-59.9, adult E66.01; Z68.43 Assessment & Plan Assessment & Plan (1) Diabetes mellitus: Comment: w/insulin pump Code(s): E11.9 - Type 2 diabetes mellitus without complications Category: Medical Qualifiers: Diabetes mellitus complication status: with hyperglycemia Diabetes mellitus type: type 1 Qualified Code(s): E10.65 - Type 1 diabetes mellitus with hyperglycemia Plan: His HgbA1c was at 7.0% when last checked on 06/07/2024 at the endocrinology office (it was previously at 7.1% back in February 2024) - goal is at least <7.0% Reinforced diabetic diet Continue Lantus 70 units QD, Humalog U-100 up to 170 units daily (he has an insulin pump) and Mounjaro 12.5 mg SQ Q week Follow up with endocrinology as scheduled (2) Diabetic retinopathy: Code(s): E11.319 - Type 2 diabetes mellitus with unspecified diabetic retinopathy without macular edema Category: Medical Qualifiers: Diabetes mellitus macular edema: without macular edema Diabetes mellitus type: type 1 Diabetic retinopathy severity: with mild nonproliferative retinopathy Laterality: bilateral Qualified Code(s): E10.3293 - Type 1 diabetes mellitus with mild nonproliferative diabetic retinopathy without macular edema, bilateral Plan: His last diabetic eye exam was done back in May 2024 - he goes to Dr. Greg Dunn at [facility] in [place] Follow up with heat reader as scheduled for his annual diabetic eye exam (3) Pure hypercholesterolemia: Code(s): E78.00 - Pure hypercholesterolemia, unspecified Category: Medical Plan: Have advised patient again that he has not had his cholesterol levels checked since May of last year (2023) so he should try to get his follow up labs done WOODY - labs are printed out again for patient to help remind him to get these done WOODY His LDL cholesterol was at 66 mg/dl when last checked in May 2023 Reinforced low cholesterol diet Continue Atorvastatin 40 mg QD - dose was lowered from his previous 80 mg QD Will recheck his labs and fasting lipids in 4 months for follow up (4) Benign essential hypertension: Code(s): I10 - Essential (primary) hypertension Category: Medical Plan: Reinforced low sodium diet - goal is systolic BP of 120 mm or less Continue Lisinopril 20 mg QD and Carvedilol 12.5 mg BID (5) Leukocytosis (leucocytosis): Code(s): D72.829 - Elevated white blood cell count, unspecified Category: Medical Qualifiers: Leukocytosis type: bandemia Qualified Code(s): D72.825 - Bandemia Plan: Patient's CBC over the years have always shown (+) mild/low level leucocytosis (absolute neutrophilia) since 2022 He was referred to and seen by hematology last year and was advised that 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 Will continue to monitor his CBC regularly Follow up with hematology as scheduled or as needed (6) Osteomyelitis of third toe of left foot: Code(s): M86.9 - Osteomyelitis, unspecified Category: Medical Plan: Patient states that he completed all of his Abx, most recently Cipro and Erythromycin, and that his osteomyelitis has reportedly completely resolved - he was also previously treated with Doxycycline and Augmentin He is following up with infectious disease and with Wound care at [facility] regularly for these (7) Vitamin D deficiency: Code(s): E55.9 - Vitamin D deficiency, unspecified Category: Medical Plan: Continue Vitamin D3 2000 units QD (8) GERD without esophagitis: Code(s): K21.9 - Gastro-esophageal reflux disease without esophagitis Category: Medical Plan: Reinforced dietary restrictions Continue Lansoprazole 30 mg QD (9) Insomnia: Code(s): G47.00 - Insomnia, unspecified Category: Medical Qualifiers: Insomnia type: unspecified Qualified Code(s): G47.00 - Insomnia, unspecified Plan: Sleep hygiene reinforced Continue Trazodone 50 mg Q HS PRN (10) Anxiety: Code(s): F41.9 - Anxiety disorder, unspecified Category: Medical Plan: Continue Escitalopram 10 mg QD and Lorazepam 0.5 mg QD PRN - states that he rarely has to take his Lorazepam (mostly once a month when needed) (11) Morbid obesity with BMI of 50.0-59.9, adult: Code(s): E66.01 - Morbid (severe) obesity due to excess calories; Z68.43 - Body mass index [BMI] 50.0-59.9, adult Category: Medical Plan: Reinforced diet/exercise as tolerated/lose weight Plan Follow up in 4 months Orders: Orders Hemoglobin A1c 4 Months E11.9 - Type 2 diabetes mellitus without complications Vitamin B12 and Folate 4 Months E53.8 - Deficiency of other specified B group vitamins UA CC w/rflx Micro + Cult 4 Months R30.0 - Dysuria Complete Blood Count Auto Diff 4 Months D64.9 - Anemia, unspecified Comprehensive [place]. Panel Fast 4 Months E78.00 - Pure hypercholesterolemia, unspecified Lipid Panel 4 Months E78.00 - Pure hypercholesterolemia, unspecified Microalbumin, Random (w Creat) 4 Months E11.9 - Type 2 diabetes mellitus without complications Vitamin D 25-OH Total 4 Months E55.9 - Vitamin D deficiency, unspecified TSH reflex Free T4 4 Months E78.00 - Pure hypercholesterolemia, unspecified Medications: Changed From tirzepatide (Mounjaro) 12.5 mg (0.625 mL) subcut QWEEK 28 days 2.5 mL 7RF To tirzepatide 12.5 mg (0.5 mL) subcut QWEEK 2 mL 5RF 28 days
--- OUTSIDE RECORDS SUMMARY | 2024-11-05 18:29 | XMS_ITS | Patient Health Record ---
[facility] Organization [facility] Address [address] [place] [address] Care Team Providers Care Ratoprinter Name Role Phone Craig SANCHEZ, Oran Primary Care Provider Unava Becki Lainez Unavailable [phone] Daron Valentin Unavailable [phone] Allergies No Known Allergies Results Component Value Reference Range Notes HEMOGLOBIN A1C (GLYCOHEMOGLO BIN) Reviewed date:02/14/2024 09:26:37 AM Interpretation: Performing Lab: Notes/Report: HEMOGLOBIN A1C % (HH) 6.8 HEMOGLOBIN A1C (GLYCOHEMOGLO BIN) Reviewed date:12/30/2023 12:20:38 PM Interpretation: Performing Lab: Notes/Report: TOTAL HEMOGLOBIN (HGBA1C) 6.8 HEMOGLOBIN A1C (GLYCOHEMOGLO BIN) Reviewed date:08/14/2024 03:01:42 PM Interpretation: Performing Lab: Notes/Report: HEMOGLOBIN A1C % (HH) 6.8 HEMOGLOBIN A1C (GLYCOHEMOGLO BIN) Reviewed date:08/28/2024 10:11:59 AM Interpretation: Performing Lab: Notes/Report: HEMOGLOBIN A1C (GLYCOHEMOGLO BIN) Reviewed date:09/11/2024 10:12:51 AM Interpretation: Performing Lab: Notes/Report: HEMOGLOBIN A1C % (HH) 6.8 Reason For Referral No Information Medications Medication SIG (Take, Route, Frequency, Duration) Notes Start Date End Date Status Carvedilol 3.125 MG 1 tablet with food Orally Active Escitalopram Oxalate 5 MG 1 tablet Orally Once a day Active Simvastatin 20 MG 1 tablet in the even ing Orally Once a day Active Cephalexin 500 MG 1 capsule Orally twi ce a day; Duration: 10 days 09/30/2021 Not-Takin g Bactrim DS 800-160 MG 1 tablet Orally Tw ice a day; Duration: 10 days Not-Takin g Cephalexin 500 MG 1 capsule Orally Fou r times a day; Duration: 10 days 12/17/2020 Not-Taking Mounjaro Active Bactrim DS 800-160 MG 1 tablet Orally Tw ice a day; Duration: 10 days 12/23/2020 Not-Takin g Lisinopril Active HumaLOG Active Extra Depth Orthopedic Shoes (1 Pair) with Customized Heat Molded Multidensity Innersoles (3 Pair) as directed Dx: IDDM/Polyneuropathy (E10.42), Hammertoe Foot Deformity (M20.41,M20.42), Preulcerative Skin Lesion(s) (L85.1) 01/07/2021 Active Ciprofloxacin HCl 500 MG 1 tablet Orally every 12 hrs; Duration: 10 days 12/30/2023 Not-Takin g Immunizations Vaccine Route Administration Date Status Comme nts Influenza Unknown 11/19/2021 Administered Influenza Unknown 11/08/2023 Administered Social History Tobacco Use: Social History Observation Description Date Details (start date - stop date) Never Smoker NA - NA Tobacco use other than smoking: Question Answer Notes Are you an other tobacco user? No Tobacco Control (Standard) Question Answer Notes Tobacco use: Nonsmoker Additional Findings: Tobacco non-user Current no nsmoker AUDIT-C (Standard) Question Answer Notes Did you have a drink containing alcohol in the p ast year? No Points 0 Interpretation Negative Problems Problem Type SNOMED Code ICD Code Onset Dates Problem Status W/U Status Risk Notes Problem Information temporarily unavailable Other hammer toe(s) (acquired), right foot (M20.41) Active confirmed Problem Information temporarily unavailable Other hammer toe(s) (acquired), left foot (M20.42) Active confirmed Problem Information temporarily unavailable Non-pressure chronic ulcer of other part of left foot limited to breakdown of skin (L97.521) Active confirmed Problem Information temporarily unavailable Other hammer toe(s) (acquired), left foot (M20.42) Active confirmed Problem Information temporarily unavailable Type 1 diabetes mellitus with diabetic polyneuropathy (E10.42) Active confirmed Problem Information temporarily unavailable Hammer toe of left foot (M20.42) Active confirmed Problem Information temporarily unavailable Other acute osteomyelitis of left foot (M86.172) Active confirmed Rx drug management (4) Problem Information temporarily unavailable Ulcer of left foot with bone involvement without evidence of necrosis (L97.526) Active confirmed Problem Information temporarily unavailable Skin ulcer of toe of left foot with fat layer exposed (L97.522) Active confirmed Problem Information temporarily unavailable 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) Active confirmed Vital Signs Blood pressure diastolic 65 mm Hg 09/11/2024 Height 6ft 3in in 09/11/2024 Blood pressure systolic 128 mm Hg 09/11/2024 Weight 425 lbs 09/11/2024 BMI 53.12 kg/m2 09/11/2024 Encounters Encounter Location Date Provider Diagnosis [address] [address] 12/30/2023 Becki Guevara Cellulitis of toe of left foot L03.032 ; Chronic osteomyelitis M86.60 ; Skin ulcer with necrosis of bone L98.494 and Type 1 diabetes mellitus with diabetic polyneuropathy E10.[address] [address] 01/17/2024 Becki Guevara Chronic osteomyelitis M86.60 ; Cellulitis of toe of left foot L03.032 ; Skin ulcer with necrosis of bone L98.494 and Type 1 diabetes mellitus with diabetic polyneuropathy E10.[address] [address] 02/14/2024 Becki Guevara Chronic osteomyelitis M86.60 ; Cellulitis of toe of left foot L03.032 ; Skin ulcer with necrosis of bone L98.494 and Type 1 diabetes mellitus with diabetic polyneuropathy E10.42 [facility] [address] [place] [address] 08/14/2024 Daron Valentin Contusion of left great toe without damage to nail, initial encounter S90.112A ; Pain in left toe(s) M79.675 ; Skin ulcer of toe of left foot with fat layer exposed L97.522 and Closed displaced fracture of distal phalanx of left great toe, initial encounter S92.422A [facility] [address] [address] 08/28/2024 Becki Guevara Contusion of left great toe without damage to nail, initial encounter S90.112A ; Pain in left toe(s) M79.675 ; Skin ulcer of toe of left foot with fat layer exposed L97.522 and Closed displaced fracture of distal phalanx of left great toe, initial encounter S92.422A [facility] [address] [address] 09/11/2024 Becki Guevara Skin ulcer of toe of left foot with fat layer exposed L97.522 ; Pain in left toe(s) M79.675 and Closed displaced fracture of distal phalanx of left great toe, initial encounter S92.422A [facility] [address] [address] 02/07/2024 Becki Guevara [facility] [address] [address] 02/14/2024 Becki Guevara [address] [address] 02/14/[address] [facility] [address] 08/14/2024 Becki Guevara [address] [address] 08/14/2024 Becki Guevara [address] [address] 08/28/2024 Becki Guevara [address] [address] 01/03/2024 Becki Guevara Assessments Encounter Date Diagnosis [...] L03.032) 02/14/2024 Chronic osteomyelitis (ICD-10 - M86.60) 08/14/2024 Contusion of left great toe without damage to nail, initial encounter (ICD-10 - S90.112A) 08/28/2024 Contusion of left great toe without damage to nail, initial encounter (ICD-10 - S90.112A) 09/11/2024 Skin ulcer of toe of left foot with fat layer exposed (ICD-10 - L97.522) 08/14/2024 Skin ulcer of toe of left foot with fat layer exposed (ICD-10 - L97.522) Patient Educated with: WOUND CARE INSTRUCTIONS. pdf (WOUND CARE INSTRUCTIONS. pdf) 08/28/2024 Pain in left toe(s) (ICD-10 - M79.675) 08/28/2024 Skin ulcer of toe of left foot with fat layer exposed (ICD-10 - L97.522) 09/11/2024 Pain in left toe(s) (ICD-10 - M79.675) 09/11/2024 Closed displaced fracture of distal phalanx of left great toe, initial encounter (ICD-10 - S92.422A) 08/14/2024 Pain in left toe(s) (ICD-10 - M79.675) 02/14/2024 Skin ulcer with necrosis of bone (ICD-10 - L98.494) 01/17/2024 Skin ulcer with necrosis of bone (ICD-10 - L98.494) 12/30/2023 Skin ulcer with necrosis of bone (ICD-10 - L98.494) 12/30/2023 Type 1 diabetes mellitus with diabetic polyneuropathy (ICD-10 - E10.42) 01/17/2024 Type 1 diabetes mellitus with diabetic polyneuropathy (ICD-10 - E10.42) 02/14/2024 Type 1 diabetes mellitus with diabetic polyneuropathy (ICD-10 - E10.42) 08/14/2024 Closed displaced fracture of distal phalanx of left great toe, initial encounter (ICD-10 - S92.422A) 08/28/2024 Closed displaced fracture of distal phalanx of left great toe, initial encounter (ICD-10 - S92.422A) Plan Of Treatment Pending Test Test Name Order Date *CBC With Differential/Platelet 05/26/19 *CBC With Differential/Platelet 05/19/19 *Wound Culture 05/25/2022 *Wound Culture 12/17/2020 *Wound Culture 05/12/2022 X ray : Foot, left 3V 08/14/2024 [id number] NAIL, 6 OR MORE 05/12/2022 [id number] Plate 09/30/2021 24831- Debride <25 sq cm 10/14/2021 63524- Debride <25 sq cm 01/07/2021 [id number] SKIN/TISSUE 05/12/2022 [id number] SKIN/TISSUE 12/17/2020 [id number] SKIN/TISSUE 05/18/2022 70524-EQEV SKIN LESION 01/23/2021 Insurance Providers Payer Name Payer Address Payer Phone Subscriber Number Group Number Insured Name Patient Relationship to Insured Coverage Start Date Coverage End Date Jose [address] Davina morelos, [place] [phone] [id number] Fredrick Stafford Spouse - patient is the spouse of the insured Medical (General) History Medical History History ICD Code Anxiety Diabetes type 1 High Blood Pressure Surgical History Surgery Date(Month/Year) Tibial Plateau Repair ( complications se psis) 01/15/2020 Infection Repair 02/10/2020 Hospitalization History Reason Date(Month/Year) [facility]- bacterial pneumonia 12/20/23
--- OUTSIDE RECORDS SUMMARY | 2024-11-05 18:29 | XMS_ITS | Clinical Summary ---
Author Organization [facility] Address [address] [address] Care Team Providers Care Binding Stitcher Name Role Phone Eliezer Mendoza MD Primary [...] 19+ 3-dose series) 01/14/1996 Influenza Vaccine (#1) 2024 Pneumococcal Vaccine: Peds ( 0 to 5 Years) and At-Risk Patients (6 to 49 Years) Aged Out No longer eligible b ased on patient's age to complete this topic Insurance [employer] Open Access ([id number]) Care Teams Binding Stitcher Relationship Specialty Start Date End Date Eliezer Mendoza MD [address] [place] [address] PCP - General Family Medicine 03/13/20
== END 2024-11-05 17:47 | disposition home or self-care (01) ==
LOC: HO.HMCH 16:50
PROVIDERS: PCP Internal Medicine; Visit Provider Internal Medicine
DX: E10.65 Type 1 diabetes mellitus with hyperglycemia (principal); E10.3293 Type 1 diabetes mellitus with mild nonproliferative diabetic retinopathy without macular edema, bilateral; Z68.43 Body mass index [BMI] 50.0-59.9, adult; E66.01 Morbid (severe) obesity due to excess calories; M86.9 Osteomyelitis, unspecified; E78.00 Pure hypercholesterolemia, unspecified; I10 Essential (primary) hypertension; D72.825 Bandemia; E55.9 Vitamin D deficiency, unspecified; K21.9 Gastro-esophageal reflux disease without esophagitis; G47.00 Insomnia, unspecified; F41.9 Anxiety disorder, unspecified

== ENCOUNTER 2024-11-13 10:26 | Outpatient (AMB) | payer OTHER, SELFPAY ==
--- OUTSIDE RECORDS SUMMARY | 2024-02-07 07:45 | XMS_ITS ---
Author Organization [facility] Address [address] [facility] [place] [address] Care Team Providers Care Mill Order Scheduler Name Role Phone Agusto Srinivasan MDneth Primary Care Provider UnaBecki Powell Unavailable [phone] Medications Medication SIG (Take, Route, Frequency, Duration) [...] Active Encounters Encounter Location Date Provider Diagnosis [facility] [place] [address] [place] [address] 02/07/2024 Becki Guevara Plan Of Treatment No Information Progress Notes * Evelia LOUISOB: 7 (49 yo M)Acc No.[id number]:02/07/2024 Progress Notes Patient: Ryan CUEVA Provider: Alyse Guevara DPM :1975 A ge:49 Y S ex:Male Date:02/07/2024 Address:[address] [place], [place] [id number] Pcp:Rito Srinivasan MD Subjective: * Chief Complaints: [...] DPM Date: Generated for Iban sanchez/Billy/eTransmitting on: 1 12:34 PM EDT
--- NOTE | 2024-11-13 10:27 | MHC.OFFVIS ---
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 glucose over 250, nausea, vomiting, illness tid atorvastatin 40 mg PO DAILY blood sugar diagnostic (Contour Next Test Strips) As directed 5 times a day blood-glucose meter (Contour Next Meter) As directed blood-glucose sensor (Dexcom G6 Sensor device) As directed change every 10 days blood-glucose sensor (Dexcom G6 Sensor device) As directed blood-glucose transmitter (Dexcom G6 Transmitter device) USE DIRECTED blood-glucose,billing specialist,cont (Dexcom G6 Finishing Frame Runner) As directed carvedilol 12.5 mg PO DAILY 90 days cholecalciferol (vitamin D3) 50 mcg PO DAILY 90 days escitalopram oxalate 10 mg PO DAILY 90 days glucagon 3 mg/actuation (Baqsimi) 3 mg intranasal .PRN PRN 30 days MDD 6 mg insulin glargine (Lantus U-100 Insulin) 70 units (0.7 mL) subcut DAILY PRN 30 days MDD 70 units insulin lispro infuse up to 170 units daily via insulin pump subcutaneously use as directed; insulin syringe-needle U-100 As directed prn qid for pump failure lansoprazole 30 mg PO DAILY lisinopril 20 mg PO DAILY 90 days lorazepam 0.5 mg PO DAILY PRN sucralfate 1 g PO BEDTIME tirzepatide 12.5 mg (0.5 mL) subcut QWEEK 28 days HPI Comments Details: 49 YO M seen in follow up for T2DM (treated as insulin dependent diabetes mellitus) on a Tandem insulin pump. Last seen May 2024 by Ariela Mclaughlin APRN. .Has been on an insulin pump since 2009. A1C 11/13/24 7.2% 06/06/24 7% 02/21/24 7.1%, 10/05/23 7.8% which was up from his previous of 6.8 %. Tandem T slim with Dexcom G6 downloaded from October 31 to 11/13/2024 Average glucose 175 mg/dL Low vision of variation 29% G MA 7.5% Within target range 57% High 33% Very high 9.1% Low 0.9% Control IQ 90% Interpretation: Variable glucose control, some days he has excellent glycemic control, other days he has been hyperglycemic with with carbs entered throughout the day, patient says he has been entering fake carbs because correction has been insufficient to bring his blood sugars within range. Insulin usage Average daily dose 143.95 units Basal: 78.02 units, 54% Bolus: 65.92 units, 46% Average daily carbs 171 g Basal rate(s) (units/hour) : 12 AM to 6:30 AM 4.8 units / hr 6:30 AM to 3 PM 5.0 units / hr 3 PM to 12 AM 4.8units / hr 10 PM to 12 AM 4.2 units / hr Bolus setting Insulin Carbohydrate Ratio (s) 12 AM to 12 AM? 1:4.2 10 PM to 12 AM 1:4 Correction Factor / Sensitivity Factor 12 AM to 6:30 AM 14 6:30 AM to 3 PM 15 3 PM to 12 AM 13 10 PM to 12 AM 15 Active Insulin Time:? 5 hours Target(s): Control IQ 12 AM to 12 AM?110? mg/dL Early in 2024 treated for osteomyelitis of the 3rd left toe with doxy/erythromycin.. He is being followed by vasc, I and D and podiatry. Initially diagnosed with DM as a teenager when he presented with hyperglycemia. Anti-GAD65 antibodies were negative possibly suggesting type 2 diabetes. However, C-peptide with glucose in the high 100s was low suggesting insulin deficiency. Currently on Mounjaro 12.5 mg weekly (titrated up November 2024). And insulin lispro a 100s through tandem T slim insulin pump with Dexcom G6. Reports low sugars occasionally . Treats lows with eats carbohydrates . Checks sugar after to ensure it is rising 30 min . No Family history of autoimmunity Has eyes checked yearly, last appt , 06/01 No retinopathy: reports Goes to Dr. Greg Dunn at [facility] in [place]. Being watched for cataract He has scheduled for 06/2025 Has neuropathy, sees podiatry 08/31 last visit, infection has healed , didnt need amputation Denies nephropathy, lisinopril 20 mg daily 05/2023 eGFR>60 05/17/24 microalbumin 31.0 Has HLD, on atorvastatin 40 mg daily Last LDL 74 measured on 05/18/23. Denies history of CAD. Denies CP, some mild HERNANDEZ if he is rushing around. Has CPAP for sleep apnea. Is compliant unless he falls asleep watching TV. Had diabetes education in past Diet/Carb counting: Follows lower carb diet may not be entering all carbs and often waits to enter carbs 5-10 minutes after meal starts especially if he is in court. 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 Denies prior severe episodes of hypoglycemia requiring help or hospitalization. wound L middle toe infection followed by wound clinic and infectious DX Fibrosis-4 (Fib-4) Index for liver fibrosis (calculated on most recent lab work 06/30) 0.74 points Advanced fibrosis [ excluded} Approximate Fibrosis stage Jesse 0-1 Physical exam General: sitting comfortably in no acute distress Cardiac: normal heart sounds Pulm: normal breath sounds B/L, no added breath sounds Abd: not distended, no tenderness Extremities: no edema, no signs of myxedema Laboratory Tests 03/14/23 05/18/23 06/29/23 09:35 09:22 09:18 Hgb 14.9 Hct 44.5 Plt Count 205 Creatinine 0.92 Estimated GFR > 60 Glucose (Clinic) Hgb A1c (Clinic) AST 13 ALT 15 Triglycerides 74 Cholesterol 112 LDL Cholesterol, Calc 66 HDL Cholesterol 32 L Urine Creatinine 298.78 Urine Microalbumin 31.0 Microalb/Creat Ratio 10.3 06/07/24 06/07/24 11/13/24 08:21 08:41 10:38 Hgb Hct Plt Count Creatinine Estimated GFR Glucose (Clinic) 158 H 271 H Hgb A1c (Clinic) 7.0 H AST ALT Triglycerides Cholesterol LDL Cholesterol, Calc HDL Cholesterol Urine Creatinine Urine Microalbumin Microalb/Creat Ratio 11/13/24 10:40 Hgb Hct Plt Count Creatinine Estimated GFR Glucose (Clinic) Hgb A1c (Clinic) 7.2 H AST ALT Triglycerides Cholesterol LDL Cholesterol, Calc HDL Cholesterol Urine Creatinine Urine Microalbumin Microalb/Creat Ratio [facility] Medical History (Updated 11/13/24 @ 11:20 by Sherry Hood MD) Insulin pump in place HORACIO on CPAP Vitamin D deficiency Diabetic foot infection Uncontrolled type 1 diabetes mellitus GERD without esophagitis Diabetic retinopathy Morbid obesity with BMI of 50.0-59.9, adult Anxiety Insomnia Benign essential hypertension Pure hypercholesterolemia Diabetes mellitus Surgical History H/O knee surgery Family History Mother High blood pressure Father High blood pressure High cholesterol Social History Housing: Apartment Are you a primary careers adviser to a significant other at home: No Do you presently have visiting nurse or other home services: No Alcohol intake: current Alcohol intake frequency: holidays/special occasions only Patient Tobacco Use Status: Former Tobacco user Tobacco use type: Cigarette Years Smoked: 5 e-Cigarette/Vaping Use: Never Used Second Hand Smoke Exposure: Yes service: No Current occupational status: employed 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 [place] Cognitive needs: No Hearing needs: No Vision needs: Yes Physical Exam Vital Signs: Last Vital Signs Pulse 87 11/13/24 10:28 BP 142/84 H 11/13/24 10:28 Pulse Ox 98 11/13/24 10:28 Oxygen Delivery Method Room Air 11/13/24 10:28 BMI result Body Mass Index 58.8 Office Procedures Glucose Monitoring Details Details: see HPI 11458 - Glucose monitoring, continuous-physician I&R Procedure code (CPT) selection complete Results AMB Hemoglobin A1c AMB Hemoglobin A1c 7.2 % Last Edit by RADHA Astudillo on 11/13/24 10:47 Results Reviewed Results Reviewed: Laboratory Last Values Glucose (Clinic) 271 mg/dL (60-115) H 11/13/24 10:38 Hgb A1c (Clinic) 7.2 % (4.0-6.0) H 11/13/24 10:40 Assessment & Plan Assessment & Plan (1) Diabetes mellitus: Comment: w/insulin pump Code(s): E11.9 - Type 2 diabetes mellitus without complications Category: Medical Qualifiers: Diabetes mellitus type: type 1 Diabetes mellitus complication status: with hyperglycemia Qualified Code(s): E10.65 - Type 1 diabetes mellitus with hyperglycemia Plan: 49-year-old patient with insulin dependent diabetes mellitus with complications of neuropathy with diabetic foot infection early in 2024. on tandem T slim insulin pump with Dexcom G6 with insulin lispro U 100. A1c POC 11/13/2024 at 7.2% which is about the same a 7% from May 2024 Pump and CGM data downloaded for the past 2 weeks which shows Variable glucose control, some days he has excellent glycemic control, other days he has been hyperglycemic with with carbs entered throughout the day, patient says he has been entering fake carbs because correction has been insufficient to bring his blood sugars within range. Based on his total daily dose, his correction factor and carb ratios should be much stronger. I will adjust those today. Also his basal units are not reflecting how much basal insulin he is currently using. I will bring those slightly done to reflect his current basal usage in control IQ. Pump settings changed in bold Basal rate(s) (units/hour) : 12 AM to 6:30 AM 4.8 to 4 units / hr 6:30 AM to 3 PM 5.0 to 4 units / hr 3 PM to 12 AM 4.8 to 4 units / hr 10 PM to 12 AM 4.2 to 4 units / hr Bolus setting Insulin Carbohydrate Ratio (s) 12 AM to 12 AM? 1:4.2 to 4 10 PM to 12 AM 1:4 Correction Factor / Sensitivity Factor 12 AM to 6:30 AM 14 to 12 6:30 AM to 3 PM 15 to 12 3 PM to 12 AM 13 to 12 10 PM to 12 AM 15to 12 Active Insulin Time:? 5 hours Target(s): Control IQ 12 AM to 12 AM?110? mg/dL He is also on Mounjaro 12.5 mg weekly injection. Continue Mounjaro 12.5 mg weekly. He is due for labs, already ordered by PCP. The patient had an opportunity to ask questions regarding treatment plan. The patient expressed understanding and agreement with the above treatment plan. The patient is aware they should contact our office by phone for worsening glucose readings or for any low blood sugars which may warrant a change in diabetes medication. Compliance is encouraged with medications and any followup testing/consults which may have been ordered. (2) Morbid obesity with BMI of 50.0-59.9, adult: Code(s): E66.01 - Morbid (severe) obesity due to excess calories; Z68.43 - Body mass index [BMI] 50.0-59.9, adult Category: Medical Plan: Mounjaro was increased to 12.5 mg weekly in November 2024. He was cautioned to watch for side effects in particular constipation to increase water consumption and fiber. Continue to follow up Winsome Peters RD (3) Insulin pump in place: Code(s): Z96.41 - Presence of insulin pump (external) (internal) Category: Medical Plan: To inject 70 units of Lantus in case of pump failure was regular doses of short-acting insulin t.i.d. pre meals Has backup Lantus, syringes, pen needles Has a nasal Baqsimi Has urine ketone strips Plan I spent 30 minutes in reviewing the record, seeing the patient and documenting in the medical record. Orders: Orders AMB Hemoglobin A1c Today E10.65 - Type 1 diabetes mellitus with hyperglycemia, Z13.9 - Encounter for screening, unspecified AMB Glucose Monitoring Today E10.65 - Type 1 diabetes mellitus with hyperglycemia Medications: Refilled insulin lispro infuse up to 170 units daily via insulin pump subcutaneously use as directed; 160 mL 5RF E10.65 - Type 1 diabetes mellitus with hyperglycemia Coding Level of Care Code Est Pt Level 4 (91044) Diagnoses Type 1 diabetes mellitus with hyperglycemia E10.65 Diabetes mellitus type: type 1 Diabetes mellitus complication status: with hyperglycemia Morbid obesity with BMI of 50.0-59.9, adult E66.01; Z68.[address] Z96.41 CPT Codes Details - CPT: 13073 - Glucose monitoring, continuous-physician I&R ([id number]) Time Spent (min) 30
[2024-11-13 10:28] VITALS: BP 142/84; PULSE 87; O2SAT 98; BMI 58.8
[2024-11-13 10:41] LABS: Glucose, Whole Blood 271 mg/dL (60-115)
--- OUTSIDE RECORDS SUMMARY | 2024-11-13 12:34 | XMS_ITS | Patient Health Record ---
Author Organization [facility] Address [address] [place] [address] Care Team Providers Care Concrete Bucket Unloader Name Role Phone Craig SANCHEZ, [place] Primary Care Provider Unava Becki Lainez Unavailable [phone] Daron Valentin Unavailable [phone] Allergies No Known Allergies Results Component Value [...] 09/11/2024 Encounters Encounter Location Date Provider Diagnosis [address] [address] 12/30/2023 Becki Guevara Cellulitis of toe of left foot L03.032 ; Chronic osteomyelitis M86.60 ; Skin ulcer with necrosis of bone L98.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 and Type 1 diabetes mellitus with diabetic polyneuropathy E10.[address] [address] 01/17/2024 Becki Guevara Chronic osteomyelitis M86.60 ; Cellulitis of toe of left foot L03.032 ; Skin ulcer with necrosis of bone L98.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 and Type 1 diabetes mellitus with diabetic polyneuropathy E10.[address] [address] 02/14/2024 Becki Guevara Chronic osteomyelitis M86.60 ; Cellulitis of toe of left foot L03.032 ; Skin ulcer with necrosis of bone L98.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 and Type 1 diabetes mellitus with diabetic polyneuropathy E10.42 [facility] [address] [place] [address] 08/14/2024 Daron Valentin Contusion of left great toe without damage to nail, initial encounter S90.112A ; Pain in left toe(s) M79.675 ; Skin ulcer of toe of left foot with fat layer exposed L97.522 and Closed displaced fracture of distal phalanx of left great toe, initial encounter S92.422A [facility] [address] [address] 08/28/2024 Becki Guevara Contusion of left great toe without damage to nail, initial encounter S90.112A ; Pain in left toe(s) M79.675 ; Skin ulcer of toe of left foot with fat layer exposed L97.522 and Closed displaced fracture of distal phalanx of left great toe, initial encounter S92.422A [facility] [address] [address] 09/11/2024 Becki Guevara Skin ulcer of toe of left foot with fat layer exposed L97.522 ; Pain in left toe(s) M79.675 and Closed displaced fracture of distal phalanx of left great toe, initial encounter S92.422A [facility] [address] [address] 02/07/2024 Becki Guevara [facility] [address] [address] 02/14/2024 Becki Guevara [address] [address] 02/14/2024 Becki Guevara [facility] [address] 08/14/2024 Becki Guevara [address] [address] 08/14/2024 Becki Guevara [address] [address] 08/28/2024 Becki Guevara [address] [address] 01/03/2024 Becki Guevara Assessments Encounter Date Diagnosis [...] X ray : Foot, left 3V 08/14/2024 [id number] NAIL, 6 OR MORE 05/12/2022 60715-Jzhwgzkv Plate 09/30/2021 10941- Debride <25 sq cm 10/14/2021 49871- Debride <25 sq cm 01/07/2021 [id number] SKIN/TISSUE 05/12/2022 [id number] SKIN/TISSUE 12/17/2020 [id number] SKIN/TISSUE 05/18/2022 [id number] SKIN LESION 01/23/2021 Insurance Providers Payer Name Payer Address Payer Phone Subscriber Number Group Number Insured Name Patient Relationship to Insured Coverage Start Date Coverage End Date Jose M [address] Davina more[place], [place] [phone] [id number] Fredrick Stafford Spouse - patient is the spouse of the insured Medical (General) History Medical History History ICD Code Anxiety Diabetes type 1 High Blood Pressure Surgical History Surgery Date(Month/Year) Tibial Plateau Repair ( complications se psis) 01/15/2020 Infection Repair 02/10/2020 Hospitalization History Reason Date(Month/Year) [facility]- bacterial pneumonia 12/20/23
--- OUTSIDE RECORDS SUMMARY | 2024-11-13 12:36 | XMS_ITS | Clinical Summary ---
Author Organization [facility] Facility Address [address] [address] Care Team Providers Care Flavor Room Worker Name Role Phone Eliezer Mendoza MD Primary [...] complete this topic Insurance [employer] Open Access ([id number]) Care Teams Flavor Room Worker Relationship Specialty Start Date End Date Eliezer Mendoza MD [address] [place] [address] PCP - General Family Medicine 03/13/20
== END 2024-11-13 11:12 | disposition home or self-care (01) ==
LOC: HO.ENCR 10:27
PROVIDERS: PCP Internal Medicine; Visit Provider Student in an Organized Health Care Education/Training Program
DX: E10.65 Type 1 diabetes mellitus with hyperglycemia (principal); E66.01 Morbid (severe) obesity due to excess calories; Z68.43 Body mass index [BMI] 50.0-59.9, adult; Z96.41 Presence of insulin pump (external) (internal); Z13.9 Encounter for screening, unspecified
CPT/HCPCS: 95251; 99214

== ENCOUNTER → 2024-11-13 10:26 | Outpatient (BNVA) | payer OTHER, SELFPAY | PROVIDERS: PCP Internal Medicine; Visit Provider Student in an Organized Health Care Education/Training Program | DX: E10.65 Type 1 diabetes mellitus with hyperglycemia (principal); E10.40 Type 1 diabetes mellitus with diabetic neuropathy, unspecified; E78.5 Hyperlipidemia, unspecified; E66.01 Morbid (severe) obesity due to excess calories; Z13.9 Encounter for screening, unspecified; Z68.43 Body mass index [BMI] 50.0-59.9, adult; Z96.41 Presence of insulin pump (external) (internal); Z79.4 Long term (current) use of insulin | CPT/HCPCS: 82947; 83036 ==

== ENCOUNTER → 2024-12-20 08:45 | Outpatient (BNVA) | payer OTHER, SELFPAY | PROVIDERS: PCP Internal Medicine; Visit Provider Dietitian, Registered | DX: E10.8 Type 1 diabetes mellitus with unspecified complications (principal) | CPT/HCPCS: 97803 ==